=== PATIENT | female | born 1940 | race American Indian/Alaskan Native ===

== ENCOUNTER 2021-11-25 01:55 | Inpatient (IN) | payer MEDICARE ==
[2021-11-25 03:45] LABS: Basophils % (Auto) 0.1 % (0.0-1.8); Eosinophils % (Auto) 0.1 % (0.0-4.3); Hematocrit 41.4 % (30.3-42.9); Hemoglobin 13.4 gm/dl (10.1-14.3); Lymphocytes % (Auto) 8.4 % (13.4-35.0); Mean Corpuscular HGB Conc 32 % (30-34); Mean Corpuscular Volume 86 fl (79-97); Monocytes # (Auto) 0.9 K/mm3 (0.0-0.8); Monocytes % (Auto) 7.6 % (0.0-7.3); Platelet Count 400 K/mm3 (140-440); Red Blood Count 4.79 M/mm3 (3.65-5.03); Red Cell Distribution Width 13.5 % (13.2-15.2)
[2021-11-25] MEDS ORDERED: MORPHINE 4 MG/1 ML INJ IV ONE (03:57)
[2021-11-25] MEDS ORDERED: ONDANSETRON 4 MG/2 ML INJ IV ONE (03:57)
[2021-11-25] MEDS ORDERED: SODIUM CHLORIDE 0.9% 500 ML 500 ML IV ONE ×2 (03:58→05:34)
--- NOTE | 2021-11-25 03:59 | Emergency Department Report ---
<ELZA ENCARNACION - Last Filed: 11/25/21 05:46> ED General Adult HPI - General Chief complaint: Abdominal Pain Stated complaint: Upper abdominal pain for 1 month Time Seen by Provider: 11/25/21 03:50 Source: patient, family, RN notes reviewed Mode of arrival: Ambulatory Limitations: Other (Patient is a poor historian) - History of Present Illness Initial comments: The patient was evaluated in the emergency department for symptoms described in the history of present illness. He/she was evaluated in the context of the global COVID-19 pandemic, which necessitated consideration that the patient might be at risk for infection with the virus that causes COVID-19. Institutional protocols and algorithms that pertain to the evaluation of patients at risk for COVID-19 are in a state of rapid change based on information released by regulatory bodies including the CDC and federal and state organizations. These policies and algorithms were followed during the patient's care in the emergency department. Please note that these policies, procedures and recommendations changed on a rapid basis. This is an 81-year-old female. She has not seen a primary care doctor for years. It is unknown what medical condition she has. She is accompanied by her son who provides most of the history of present illness. She presents to the emergency room today with a complaint of a few weeks of upper abdominal pain. The pain increases with palpation. As per the son, no fever, vomiting, diarrhea, or urinary symptoms. Positive generalized weakness. Patient felt the pain was so strong today, that she had to sit down/lay down. She did not fall or hit her head. No allergies as per family. As per the son, not vaccinated against COVID-19. -: Gradual, week(s) Location: abdomen Consistency: constant Improves with: none Worsens with: movement - Related Data Allergies Allergy/AdvReac Type Severity Reaction Status Date / Time No Known Allergies Allergy Verified 11/25/21 02:53 ED Review of Systems Constitutional: malaise. denies: fever Eyes: denies: eye discharge ENT: denies: epistaxis Respiratory: denies: cough, wheezing Cardiovascular: denies: chest pain Gastrointestinal: abdominal pain. denies: hematemesis, melena, hematochezia Genitourinary: denies: dysuria Musculoskeletal: denies: back pain Neurological: weakness Hematological/Lymphatic: denies: easy bleeding ED Physical Exam - General Limitations: No Limitations, Other (Patient is a poor historian) General appearance: alert, in no apparent distress - Head Head exam: Present: atraumatic, normocephalic - Eye Eye exam: Present: normal appearance, EOMI. Absent: nystagmus - ENT ENT exam: Present: normal exam, normal orophraynx, normal external ear exam, other (Poor dentition) - Neck Neck exam: Present: normal inspection, full ROM. Absent: tenderness, meningismus - Respiratory Respiratory exam: Present: normal lung sounds bilaterally. Absent: respiratory distress, wheezes, rales, rhonchi, stridor, decreased breath sounds - Cardiovascular Cardiovascular Exam: Present: regular rate, normal rhythm, normal heart sounds. Absent: bradycardia, tachycardia, irregular rhythm, systolic murmur, diastolic murmur, rubs, gallop - GI/Abdominal GI/Abdominal exam: Present: soft, tenderness, guarding, other (Upper quadrant abdominal tenderness. Positive right upper quadrant tenderness. Positive Millan sign.). Absent: distended, rebound, rigid, pulsatile mass - Extremities Exam Extremities exam: Present: normal inspection, full ROM, other (2+ pulses noted in the bilateral upper and lower extremities. There is no palpable cord. negative Homans sign. Muscular compartments are soft. The pelvis is stable.). Absent: calf tenderness - Back Exam Back exam: Present: normal inspection. Absent: tenderness, CVA tenderness (R), CVA tenderness (L), paraspinal tenderness, vertebral tenderness - Neurological Exam Neurological exam: Present: alert, other (There is no facial droop. The tongue is midline. EOMI. 5/5 strength in 4 extremities.) - Psychiatric Psychiatric exam: Present: flat affect - Skin Skin exam: Present: warm, dry, intact, normal color. Absent: rash ED Course - Reevaluation(s) Reevaluation #1: 11/25/21 04:36 Differential diagnosis, including not limited to: Cholecystitis, pancreatitis, choledocholithiasis, hepatobiliary malignancy, urinary tract infection, obstru ction, colitis, diverticulitis, perforated viscus, intra-abdominal abscess Assessment and plan: 81-year-old female with subacute abdominal pain, now worsening. She is afebrile, with reassuring vital signs, and tender. Laboratory studies demonstrate leukocytosis, and elevated lipase. X-ray of the chest is unremarkable. Initial EKG limited by motion artifact. We will treat this patient's symptoms, obtain right upper quadrant ultrasound, as well as CT scan of the abdomen pelvis. Have requested repeat EKG, and urinalysis. Reassess after diagnostic imaging studies have resulted. Discussed this plan of care with the family member, who articulated understanding, and is agreeable to the plan of care son is in agreement with the plan of care and for acquisition of the aforementioned diagnostics Have advised that patient will likely require admission and hospitalization. Family is agreeable to this 11/25/21 04:56 EKG is repeated, and interpreted at 04: 5 5 Sinus rhythm, 66 bpm. Normal axis, normal P wave axis, borderline left ventricular hypertrophy, QTC 4 6 5 ms, and motion artifact. This is an abnormal EKG. This is not a STEMI. 11/25/21 05:04 11/25/21 05:34 Ultrasound suggestive of cholecystitis. I have ordered blood cultures and lactic acid, although, this hospital and many of the local hospitals are out of lactic acid tubes. Antibiotics are ordered. IV fluids ordered. Awaiting callback from general surgery. Awaiting CT scan abdomen pelvis. 11/25/21 05:47 Change in plans. No need for general surgical consultation CT scan abdomen pelvis showsIMPRESSION: 1. Acute pancreatitis. 2. Moderate colonic diverticulosis 3. Multifocal bilateral groundglass parenchymal disease likely secondary to Covid pneumonia. 4. Gallbladder surgically absent. On the gallbladder ultrasound, the technologist mistakenly measured an adjacent loop of duodenum rather than the gallbladder itself No evidence of cholecystitis. Acute pancreatitis. Multifocal infiltrates. Patient not hypoxic. Cover with empiric antibiotics. Admit to the medical service. Start isolation. Not hy poxic, no indication for steroids. He will be transferred to the oncoming ER physician, Dr Rick Driver, to contact hospital physician to arrange admission. ED Medical Decision Making - Lab Data Result diagrams: 11/25/21 03:15 11/25/21 03:15 Vital Signs 11/25/21 02:16 Temperature 98.3 F Pulse Rate 93 H Respiratory 19 Rate Blood Pressure 135/81 O2 Sat by Pulse 99 Oximetry Lab Results 11/25/21 11/25/21 Range/Units 03:15 03:15 WBC 12.0 H (4.5-11.0) K/mm3 RBC 4.79 (3.65-5.03) M/mm3 Hgb 13.4 (10.1-14.3) gm/dl Hct 41.4 (30.3-42.9) % MCV 86 (79-97) fl MCH 28 (28-32) pg MCHC 32 (30-34) % RDW 13.5 (13.2-15.2) % Plt Count 400 (140-440) K/mm3 Lymph % (Auto) 8.4 L (13.4-35.0) % [place] % (Auto) 7.6 H (0.0-7.3) % Eos % (Auto) 0.1 (0.0-4.3) % Baso % (Auto) 0.1 (0.0-1.8) % Lymph # (Auto) 1.0 L (1.2-5.4) K/mm3 [place] # (Auto) 0.9 H (0.0-0.8) K/mm3 Eos # (Auto) 0.0 (0.0-0.4) K/mm3 Baso # (Auto) 0.0 (0.0-0.1) K/mm3 Seg Neutrophils % 83.8 H (40.0-70.0) % Seg Neutrophils # 10.0 H (1.8-7.7) K/mm3 Sodium 140 (137-145) mmol/L Potassium 3.5 L (3.6-5.0) mmol/L Chloride 97.5 L (98-107) mmol/L Carbon Dioxide 27 (22-30) mmol/L Anion Gap 19 mmol/L BUN 18 H (7-17) mg/dL Creatinine 0.9 (0.6-1.2) mg/dL Estimated GFR > 60 ml/min BUN/Creatinine Ratio 20 % Glucose 187 H (65-100) mg/dL Calcium 10.3 H (8.4-10.2) mg/dL Total Bilirubin 0.70 (0.1-1.2) mg/dL AST 15 (5-40) units/L ALT 12 (7-56) units/L Alkaline Phosphatase 80 (35-129) units/L Total Protein 8.3 H (6.3-8.2) g/dL Albumin 3.6 L (3.9-5) g/dL Albumin/Globulin Ratio 0.8 % Amylase 249 H (27-131) units/L Lipase 173 H (13-60) units/L - EKG Data -: EKG Interpreted by Nd EKG shows normal: sinus rhythm Rate: normal - EKG Data When compared to previous EKG there are: previous EKG unavailable 11/25/21 04:33 The EKG is interpreted at 02: 3 0 Motion artifact. Sinus rhythm, 96 bpm. Normal axis, borderline normal P wave axis. QTC 4 7 9 ms. Left ventricular hypertrophy. Abnormal EKG. Not a STEMI. - Radiology Data Radiology results: pending, report reviewed, image reviewed CHEST 1 VIEW INDICATION / CLINICAL INFORMATION: upper abd pain. COMPARISON: None available. FINDINGS: SUPPORT DEVICES: None. HEART / MEDIASTINUM: No significant abnormality. LUNGS / PLEURA: Linear scarring/atelectasis right lower lobe No significant pulmonary or pleural abnormality. No pneumothorax. ADDITIONAL FINDINGS: No significant additional findings. IMPRESSION: 1. No acute findings. Signer Name: Reynaldo Walter MD Signed: 11/25/2021 3:24 AM Workstation Name: Spontaneously LIMITED RUQ ABDOMINAL ULTRASOUND INDICATION / CLINICAL INFORMATION: acute upper abd pain. COMPARISON: No relevant prior imaging study available. FINDINGS: PANCREAS: Visualized portions show no significant abnormality. ABDOMINAL AORTA: No significant abnormality. IVC: No significant abnormality.. LIVER: The liver measures 14.3 cm in length. No significant abnormality. Normal hepatopedal blood flow in the main portal vein. GALLBLADDER: Several calcified gallstones with thickened edematous gallbladder wall measuring 8 mm. BILE DUCTS: No significant abnormality. Common bile duct measures 2 mm. RIGHT KIDNEY: 1.5 cm cyst FREE FLUID: None. ADDITIONAL FINDINGS: None. IMPRESSION: 1. Cholelithiasis with gallbladder wall thickening characteristic for cholecystitis Signer Name: Reynaldo Walter MD Signed: 11/25/2021 4:28 AM Workstation Name: [id number] CT ABDOMEN AND PELVIS WITH CONTRAST INDICATION: acute upper abd pain. NUSRAT HNIQUE: Axial CT images were obtained through the abdomen and pelvis after IV contrast. All CT scans at this location are performed using CT dose reduction for ALARA by means of automated exposure control. COMPARISON: Gallbladder ultrasound same day FINDINGS: LOWER CHEST: Multifocal moderate bilateral groundglass proximal disease LIVER: No significant abnormality. GALLBLADDER: Surgically absent with small amount of fluid in the gallbladder fossa BILE DUCTS: No significant abnormality. PANCREAS: Enlarged edematous pancreatic head and body characteristic for acute pancreatitis with peripancreatic edema. SPLEEN: No significant abnormality. 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 RIGHT KIDNEY and URETER: Simple 1.9 cm cyst LEFT KIDNEY and URETER: 1.6 cm simple cyst STOMACH and SMALL BOWEL: No significant abnormality. COLON: Moderate colonic diverticulosis without diverticulitis APPENDIX: No significant abnormality. PERITONEUM: No free fluid. No free air. No fluid collection. LYMPH NODES: No significant adenopathy. AORTA and ARTERIES: No significant abnormality. IVC and VEINS: No significant abnormality. URINARY BLADDER: No significant abnormality. REPRODUCTIVE ORGANS: No significant abnormality. ADDITIONAL FINDINGS: None. SKELETAL SYSTEM: Moderate multilevel lumbar facet degenerative disease. Mild degenerative arthrosis both hips IMPRESSION: 1. Acute pancreatitis. 2. Moderate colonic diverticulosis 3. Multifocal bilateral groundglass parenchymal disease likely secondary to Covid pneumonia. 4. Gallbladder surgically absent. On the gallbladder ultrasound, the technologist mistakenly measured an adjacent loop of duodenum rather than the gallbladder itself Signer Name: Reynaldo Walter MD Signed: 11/25/2021 4:39 AM Workstation Name: [id number] ED Disposition Clinical Impression: Acute abdominal pain, Suspected COVID-19 virus infection Disposition: ADMITTED INPATIENT Is pt being admited?: Yes Does the pt Need Aspirin: No Condition: Good Instructions: Bacterial Pneumonia (ED), Abdominal Pain (ED) <YOHAN BAHENA - Last Filed: 11/25/21 08:29> ED Review of Systems ROS: Stated complaint: Upper abdominal pain for 1 month Other details as noted in HPI ED Course Vital Signs 11/25/21 11/25/21 11/25/21 02:16 06:10 06:37 Temperature 98.3 F Pulse Rate 93 H 89 Respiratory 19 16 Rate Blood Pressure 135/81 Blood Pressure 201/90 [Right] O2 Sat by Pulse 99 98 96 Oximetry 11/25/21 06:57 Temperature Pulse Rate 65 Respiratory 16 Rate Blood Pressure Blood Pressure 179/85 [Right] O2 Sat by Pulse 95 Oximetry ED Medical Decision Making - Lab Data Result diagrams: 11/25/21 03:15 11/25/21 03:15 - Medical Decision Making This is an 81-year-old female. She has not seen a primary care doctor for years. It is unknown what medical condition she has. She is accompanied by her son who provides most of the history of present illness. She presents to the emergency room today with a complaint of a few weeks of upper abdominal pain. The pain increases with palpation. As per the son, no fever, vomiting, diarrhea, or urinary symptoms. Positive generalized weakness. Patient felt the pain was so strong today, that she had to sit down/lay down. She did not fall or hit her head. No allergies as per family. Patient remained stable with stable vital sign. I discussed the patient with Dr. Huffman, he agreed to admit the patient to medical service for further management. Critical care attestation.: If time is entered above; I have spent that time in minutes in the direct care of this critically ill patient, excluding procedure time.
[2021-11-25 04:00] LABS: Alanine Aminotransferase 12 units/L (7-56); Albumin 3.6 g/dL (3.9-5); BUN/Creatinine Ratio 20; Blood Urea Nitrogen 18 mg/dL (7-17); Calcium 10.3 mg/dL (8.4-10.2); Hemolysis Index 3
--- NOTE | 2021-11-25 04:28 | XRay Report ---
CHEST 1 VIEW INDICATION / CLINICAL INFORMATION: upper abd pain. COMPARISON: None available. FINDINGS: SUPPORT DEVICES: None. HEART / MEDIASTINUM: No significant abnormality. LUNGS / PLEURA: Linear scarring/atelectasis right lower lobe No significant pulmonary or pleural abno rmality. No pneumothorax. ADDITIONAL FINDINGS: No significant additional findings. IMPRESSION: 1. No acute findings. Signer Name: Reynaldo Walter MD Signed: 11/25/2021 4:24 AM Workstation Name: [id number]
[2021-11-25] MEDS ORDERED: PIPERACIL/TAZOBACTA 4.5/NS 100 4.5 GM/100 ML VIAL IV ONE (05:33)
--- NOTE | 2021-11-25 05:33 | Ultrasound Report ---
LIMITED RUQ ABDOMINAL ULTRASOUND INDICATION / CLINICAL INFORMATION: acute upper abd pain. COMPARISON: No relevant prior imaging study available. FINDINGS: PANCREAS: Visualized portions show no significant abnormality. ABDOMINAL AORTA: No significant abnormality. IVC: No significant abnormality.. LIVER: The liver measures 14.3 cm in length. No significant abnormality. Normal hepatopedal blood fl ow in the main portal vein. GALLBLADDER: Several calcified gallstones with thickened edematous gallbladder wall measuring 8 mm. BILE DUCTS: No significant abnormality. Common bile duct measures 2 mm. RIGHT KIDNEY: 1.5 cm cyst FREE FLUID: None. ADDITIONAL FINDINGS: None. IMPRESSION: 1. Cholelithiasis with gallbladder wall thickening characteristic for cholecystitis Signer Name: Reynaldo Walter MD Signed: 11/25/2021 5:28 AM Workstation Name: [id number]
--- NOTE | 2021-11-25 05:43 | Cat Scan Report ---
CT ABDOMEN AND PELVIS WITH CONTRAST INDICATION: acute upper abd pain. TECHNIQUE: Axial CT images were obtained through the abdomen and pelvis after IV contrast. All CT scans at this location are performed using CT dose reduction for ALARA by means of automated exposure control. COMPARISON: Gallbladder ultrasound same day FINDINGS: LOWER CHEST: Multifocal moderate bilateral groundglass proximal disease LIVER: No significant abnormality. GALLBLADDER: Surgically absent with small amount of fluid in the gallbladder fossa BILE DUCTS: No significant abnormality. PANCREAS: Enlarged edematous pancreatic head and body characteristic for acute pancreatitis with gerson pancreatic edema. SPLEEN: No significant abnormality. 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 RIGHT KIDNEY and URETER: Simple 1.9 cm cyst LEFT KIDNEY and URETER: 1.6 cm simple cyst STOMACH and SMALL BOWEL: No significant abnormality. COLON: Moderate colonic diverticulosis without diverticulitis APPENDIX: No significant abnormality. PERITONEUM: No free fluid. No free air. No fluid collection. LYMPH NODES: No significant adenopathy. AORTA and ARTERIES: No significant abnormality. IVC and VEINS: No significant abnormality. URINARY BLADDER: No significant abnormality. REPRODUCTIVE ORGANS: No significant abnormality. ADDITIONAL FINDINGS: None. SKELETAL SYSTEM: Moderate multilevel lumbar facet degenerative disease. Mild degenerative arthrosis b oth hips IMPRESSION: 1. Acute pancreatitis. 2. Moderate colonic diverticulosis 3. Multifocal bilateral groundglass parenchymal disease likely secondary to Covid pneumonia. 4. Gallbladder surgically absent. On the gallbladder ultrasound, the technologist mistakenly measured an adjacent loop of duodenum rather than the gallbladder itself Signer Name: Reynaldo Walter MD Signed: 11/25/2021 5:39 AM Workstation Name: [id number]
[2021-11-25] MEDS ORDERED: cefTRIAXone/NS 1 GM/50 ML 1 GM/50 ML BAG IV ONE (05:47)
[2021-11-25] MEDS ORDERED: AZITHROMYCIN/NS 500 MG/250 ML 500 MG/250 ML BAG IV ONE ×2 (05:47→10:00)
[2021-11-25 07:34] LABS: Bilirubin,Urine Negative (Negative); Color,Urine Yellow (Yellow)
[2021-11-25 07:42] LABS: Hyaline Casts,Urine 451 /LPF; Mucus,Urine 3+ /HPF
[2021-11-25 07:43] LABS: Blood,Urine TRACE (Negative)
[2021-11-25] MEDS ORDERED: D5W/0.9% NACL 1,000 ML IV SCH (09:00)
[2021-11-25] MEDS ORDERED: oxyCODONE /ACETAMINOPHEN 5-325MG TAB PO PRN (09:00)
[2021-11-25] MEDS ORDERED: NALOXONE 0.4 MG/1 ML INJ IV PRN (09:00)
[2021-11-25] MEDS ORDERED: ALBUTEROL 2.5 MG/3 ML NEBU IH PRN (09:00)
[2021-11-25] MEDS ORDERED: ONDANSETRON 4 MG/2 ML INJ IV PRN (09:00)
[2021-11-25] MEDS ORDERED: ACETAMINOPHEN 325 MG TAB PO PRN (09:00)
--- NOTE | 2021-11-25 09:02 | History and Physical Report ---
History of Present Illness Date of examination: 11/25/21 Date of admission: 11/25/21 Chief complaint: Abdominal pain History of present illness: Patient is a 81-year-old female vaccinated according to the son per the ER physician who spoke to the son presents to the ED with complaints of abdominal pain. According to further information obtained by the satisfied of the ED physicians note shows that the patient has not had any fever nausea vomiting or diarrhea but has been complaining of abdominal pain for the past few weeks. The pain increases to palpitations she appears to be nonverbal. Per the documentation the pain was so strong that the patient sat down but did not have a fall or syncopal episode or head trauma. On arrival to the ED initial work-up was pointing more towards pancreatitis with mildly elevated lipase and also CT of the abdomen Suggested pancreatitis. Is unclear to be if the patient responded to verbal or language barrier. I am awaiting to speak with the son also. Past History Past Medical History: hypertension Social history: full code Family history: no significant family history Medications and Allergies Allergies Allergy/AdvReac Type Severity Reaction Status Date / Time No Known Allergies Allergy Verified 11/25/21 02:53 Active Meds: Active Medications Acetaminophen (Acetaminophen 325 Mg Tab) 650 mg PO Q4H PRN PRN Reason: Pain MILD(1-3)/Fever >100.5/TRIPLETT Albuterol (Albuterol 2.5 Mg/3 Ml Nebu) 2.5 mg IH Q4HRT PRN PRN Reason: Shortness Of Breath Heparin Sodium (Porcine) (Heparin 5,000 Unit/1 Ml Vial) 5,000 unit SUB-Q Q8HR ELIESER Dextrose/Sodium Chloride (D5ns) 1,000 mls @ 100 mls/hr IV DIRECT ELIESER Piperacillin Sod/Tazobactam Sod (Zosyn/Ns 4.5gm/100ml) 4.5 gm in 100 mls @ 200 mls/hr IV Q8H ELIESER; Protocol Naloxone HCl (Naloxone 0.4 Mg/1 Ml Inj) 0.1 mg IV Q2MIN PRN PRN Reason: Res Rate </= 8 or 02 SAT < 92% Ondansetron HCl (Ondansetron 4 Mg/2 Ml Inj) 4 mg IV Q4H PRN PRN Reason: Nausea And Vomiting Oxycodone/Acetaminophen (Oxycodone /Acetaminophen 5-325mg Tab) 1 tab PO Q6H PRN PRN Reason: Pain, Moderate (4-6) Senna (Sennosides 8.6 Mg Tab) 8.6 mg PO Q12HR ELIESER Sodium Chloride (Sodium Chloride 0.9% 10 Ml Flush Syringe) 10 ml IV BID ELIESER Sodium Chloride (Sodium Chloride 0.9% 10 Ml Flush Syringe) 10 ml IV PRN PRN PRN Reason: LINE FLUSH Review of Systems ROS unobtainable: due to mental status (Patient not speaking) Constitutional: fatigue, weakness, malaise, lethargy Gastrointestinal: abdominal pain, no nausea, no vomiting, no diarrhea, no constipation, no change in bowel habits, no hematemesis, no coffee ground emesis, no BRBPR, no melena, no hematochezia, no loss of appetite, no early satiety, no heartburn, no indigestion, no belching, no excessive gas, no jaundice, no dyspepsia/bloating, no early satiety, no lactose intolerance Exam - Physical Exam Narrative exam: VITAL SIGNS: Reviewed. GENERAL: The patient appears normally developed, morbidly obese vital signs as documented. HEAD: No signs of head trauma. EYES: Pupils are equal. Extraocular motions intact. EARS: Hearing grossly intact. MOUTH: Oropharynx is normal. NECK: No adenopathy, no JVD. CHEST: Chest with clear breath sounds bilaterally. No wheezes, rales, or rhonchi. CARDIAC: Regular rate and rhythm. S1 and S2, without murmurs, gallops, or rubs. VASCULAR: No Edema. Peripheral pulses normal and equal in all extremities. ABDOMEN: Soft, non tender and non distended. No rebound or guarding, and no masses palpated. Bowel Sounds normal. MUSCULOSKELETAL: Good range of motion of all major joints. Extremities without clubbing, cyanosis or edema. NEUROLOGIC EXAM: Alert and oriented x 3 No focal sensory or strength deficits. Speech normal. Follows commands. PSYCHIATRIC: Mood normal. SKIN: detail exam as documented in skin assessment - Constitutional Vitals: Temp Pulse Resp BP Pulse Ox 98.3 F 65 16 179/85 95 11/25/21 02:16 11/25/21 06:57 11/25/21 06:57 11/25/21 06:57 11/25/21 06:57 HEART Score - HEART Score Troponin: Troponin T < 0.010 ng/mL (0.00-0.029) 11/25/21 04:29 Results - Labs CBC & Chem 7: 11/25/21 03:15 11/25/21 03:15 Labs: Laboratory Last Values WBC 12.0 K/mm3 (4.5-11.0) H 11/25/21 03:15 RBC 4.79 M/mm3 (3.65-5.03) 11/25/21 03:15 Hgb 13.4 gm/dl (10.1-14.3) 11/25/21 03:15 Hct 41.4 % (30.3-42.9) 11/25/21 03:15 MCV 86 fl (79-97) 11/25/21 03:15 MCH 28 pg (28-32) 11/25/21 03:15 MCHC 32 % (30-34) 11/25/21 03:15 RDW 13.5 % (13.2-15.2) 11/25/21 03:15 Plt Count 400 K/mm3 (140-440) 11/25/21 03:15 Lymph % (Auto) 8.4 % (13.4-35.0) L 11/25/21 03:15 [place] % (Auto) 7.6 % (0.0-7.3) H 11/25/21 03:15 Eos % (Auto) 0.1 % (0.0-4.3) 11/25/21 03:15 Baso % (Auto) 0.1 % (0.0-1.8) 11/25/21 03:15 Lymph # (Auto) 1.0 K/mm3 (1.2-5.4) L 11/25/21 03:15 [place] # (Auto) 0.9 K/mm3 (0.0-0.8) H 11/25/21 03:15 Eos # (Auto) 0.0 K/mm3 (0.0-0.4) 11/25/21 03:15 Baso # (Auto) 0.0 K/mm3 (0.0-0.1) 11/25/21 03:15 Seg Neutrophils % 83.8 % (40.0-70.0) H 11/25/21 03:15 Seg Neutrophils # 10.0 K/mm3 (1.8-7.7) H 11/25/21 03:15 Sodium 140 mmol/L (137-145) 11/25/21 03:15 Potassium 3.5 mmol/L (3.6-5.0) L 11/25/21 03:15 Chloride 97.5 mmol/L (98-107) L 11/25/21 03:15 Carbon Dioxide 27 mmol/L (22-30) 11/25/21 03:15 Anion Gap 19 mmol/L 11/25/21 03:15 BUN 18 mg/dL (7-17) H 11/25/21 03:15 Creatinine 0.9 mg/dL (0.6-1.2) 11/25/21 03:15 Estimated GFR > 60 ml/min 11/25/21 03:15 BUN/Creatinine Ratio 20 % 11/25/21 03:15 Glucose 187 mg/dL (65-100) H 11/25/21 03:15 Calcium 10.3 mg/dL (8.4-10.2) H 11/25/21 03:15 Magnesium 2.10 mg/dL (1.7-2.3) 11/25/21 04:29 Total Bilirubin 0.70 mg/dL (0.1-1.2) 11/25/21 03:15 AST 15 units/L (5-40) 11/25/21 03:15 ALT 12 units/L (7-56) 11/25/21 03:15 Alkaline Phosphatase 80 units/L (35-129) 11/25/21 03:15 Total Creatine Kinase 117 units/L (30-135) 11/25/21 04:29 Troponin T < 0.010 ng/mL (0.00-0.029) 11/25/21 04:29 Total Protein 8.3 g/dL (6.3-8.2) H 11/25/21 03:15 Albumin 3.6 g/dL (3.9-5) L 11/25/21 03:15 Albumin/Globulin Ratio 0.8 % 11/25/21 03:15 Amylase 249 units/L (27-131) H 11/25/21 03:15 Lipase 173 units/L (13-60) H 11/25/21 03:15 Urine Color Yellow (Yellow) 11/25/21 06:13 Urine Turbidity Clear (Clear) 11/25/21 06:13 Urine pH 5.0 (5.0-7.0) 11/25/21 06:13 Ur Specific [place] 1.010 (1.003-1.030) 11/25/21 06:13 Urine Protein 30 mg/dl mg/dL (Negative) 11/25/21 06:13 Urine Glucose (UA) Negative mg/dL (Negative) 11/25/21 06:13 Urine Ketones Trace mg/dL (Negative) 11/25/21 06:13 Urine Blood Trace (Negative) 11/25/21 06:13 Urine Nitrite Negative (Negative) 11/25/21 06:13 Urine Bilirubin Negative (Negative) 11/25/21 06:13 Urine Urobilinogen 4.0 mg/dL (<2.0) 11/25/21 06:13 Ur Leukocyte Esterase Trace (Negative) 11/25/21 06:13 Urine WBC (Auto) 23.0 /HPF (0.0-6.0) H 11/25/21 06:13 Urine RBC (Auto) 181.0 /HPF (0.0-6.0) 11/25/21 06:13 U Epithel Cells (Auto) 54.0 /HPF (0-13.0) H 11/25/21 06:13 Hyaline Casts 451 /LPF 11/25/21 06:13 Waxy Casts 83 /LPF 11/25/21 06:13 Urine Mucus 3+ /HPF 11/25/21 06:13 Assessment and Plan Assessment and plan: Patient is a 81-year-old female vaccinated according to the son per the ER physician who spoke to the son presents to the ED with complaints of abdominal pain. According to further information obtained by the satisfied of the ED physicians note shows that the patient has not had any fever nausea vomiting or diarrhea but has been complaining of abdominal pain for the past few weeks. The pain increases to palpitations she appears to be nonverbal. Per the documentation the pain was so strong that the patient sat down but did not have a fall or syncopal episode or head trauma. On arrival to the ED initial work-up was pointing more towards pancreatitis with mildly elevated lipase and also CT of the abdomen Suggested pancreatitis. Is unclear to be if the patient responded to verbal or language barrier. I am awaiting to speak with the son also. Patient does not demonstrate any solid or hypoxia. Ultrasound suggestive of cholecystitis. CT scan abdomen pelvis 1. Acute pancreatitis. 2. Moderate colonic diverticulosis 3. Multifocal bilateral groundglass parenchymal disease likely secondary to Covid pneumonia. 4. Gallbladder surgically absent. On the gallbladder ultrasound, the technologist mistakenly measured an adjacent loop of duodenum rather than the gallbladder itself No evidence of cholecystitis. Acute pancreatitis Moderate colonic Diverticulosis Pneumonia possible COVID related Suspected COVID infection Morbid obesity Hypokalemia Abdominal pain Leukocytosis ?Acute Cystitis PLAN ADMIT TO [facility] IV FLUIDS PAIN CONTROL ABX Replace K GI consult ISOLATION FOR COVID MANAGEMENT Patient is not Hypoxic, will monitor clinically ID CONSULT Cultures DVT/GI PROPHY Will obtain family with findings so far. Advance care directive discussed in detail for 30 mins. Advance Directives: Yes (dnr) Plan of care discussed with patient/family: Yes
--- NOTE | 2021-11-25 12:16 | Electrocardiograph Report ---
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
--- NOTE | 2021-11-25 12:17 | Electrocardiograph Report ---
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
[2021-11-25] MEDS ORDERED: REMDESIVIR 200 MG in SODIUM CHLORIDE 0.9% 250ML 250 ML IV ONE (13:52)
--- NOTE | 2021-11-25 13:54 | Consultation ---
History of Present Illness - Reason for Consult Consult date: 11/25/21 pneumonia Requesting physician: MIGUEL ANGEL CARTAGENA - History of Present Illness The patient is an 81-year-old female with hypertension who was admitted to the hospital with complaints of abdominal pain. Upon admission, WBC 12.0, calcium 10.3, amylase 249, lipase 173. UA was contaminated, showed slight pyuria, COVID-19 PCR came back positive. Abdominal ultrasound showed cholelithiasis wit h gallbladder wall thickening suggestive of possible cholecystitis. CT abdomen and pelvis with IV contrast revealed acute pancreatitis, bilateral groundglass opacities concerning for COVID-19, gallbladder surgically absent, it seems the loop of duodenum was reported as possible gallbladder. Afebrile. Review of Systems: reviewed in the chart, unable to obtain, minimize risk of transmission Past History Past Medical History: hypertension Social history: full code Family history: no significant family history Medications and Allergies Allergies Allergy/AdvReac Type Severity Reaction Status Date / Time No Known Allergies Allergy Verified 11/25/21 02:53 Active Meds: Active Medications Acetaminophen (Acetaminophen 325 Mg Tab) 650 mg PO Q4H PRN PRN Reason: Pain MILD(1-3)/Fever >100.5/TRIPLETT Albuterol (Albuterol 2.5 Mg/3 Ml Nebu) 2.5 mg IH Q4HRT PRN PRN Reason: Shortness Of Breath Heparin Sodium (Porcine) (Heparin 5,000 Unit/1 Ml Vial) 5,000 unit SUB-Q Q8HR ELIESER Hydralazine HCl (Hydralazine 20 Mg/1 Ml Inj) 10 mg IV Q4HR PRN PRN Reason: Hypertension Dextrose/Sodium Chloride (D5ns) 1,000 mls @ 100 mls/hr IV DIRECT ELIESER Piperacillin Sod/Tazobactam Sod (Zosyn/Ns 4.5gm/100ml) 4.5 gm in 100 mls @ 200 mls/hr IV Q8HR ELIESER; Protocol Remdesivir 200 mg/ Sodium (Chloride) 250 mls @ 500 mls/hr IV ONCE ONE Stop: 11/25/21 14:21 Remdesivir 100 mg/ Sodium (Chloride) 250 mls @ 500 mls/hr IV Q24HR@1400 ELIESER Stop: 11/27/21 14:29 Naloxone HCl (Naloxone 0.4 Mg/1 Ml Inj) 0.1 mg IV Q2MIN PRN PRN Reason: Res Rate </= 8 or 02 SAT < 92% Ondansetron HCl (Ondansetron 4 Mg/2 Ml Inj) 4 mg IV Q4H PRN PRN Reason: Nausea And Vomiting Oxycodone/Acetaminophen (Oxycodone /Acetaminophen 5-325mg Tab) 1 tab PO Q6H PRN PRN Reason: Pain, Moderate (4-6) Senna (Sennosides 8.6 Mg Tab) 8.6 mg PO Q12HR ELIESER Sodium Chloride (Sodium Chloride 0.9% 10 Ml Flush Syringe) 10 ml IV BID ELIESER Sodium Chloride (Sodium Chloride 0.9% 10 Ml Flush Syringe) 10 ml IV PRN PRN PRN Reason: LINE FLUSH Sodium Chloride (Sodium Chloride 0.9% 50 Ml Ivpb) 50 ml IV Q24HR@1400 ELIESER Stop: 11/26/21 14:01 Physical Examination - Physical Exam Narrative exam: Physical Exam (reviewed in chart to minimize risk of transmission) Constitutional: deferred Head, Ears, Nose: deferred Eyes: deferred Neck: deferred Oral: deferred Cardiovascular: deferred Respiratory: deferred GI: deferred Musculoskeletal: deferred Skin: deferred Hem/Lymphatic: deferred Psych: deferred Neurological: deferred - Constitutional Vitals: Vital Signs Temp Pulse Resp BP Pulse Ox 98.3 F 65 16 179/85 95 11/25/21 02:16 11/25/21 06:57 11/25/21 06:57 11/25/21 06:57 11/25/21 06:57 Temperature -Last 24 Hours Temperature 98.3 F Results - Labs CBC & Chem 7: 11/25/21 03:15 11/25/21 03:15 Labs: Abnormal lab results 11/25/21 11/25/21 11/25/21 Range/Units 03:15 03:15 06:13 WBC 12.0 H (4.5-11.0) K/mm3 Lymph % (Auto) 8.4 L (13.4-35.0) % [place] % (Auto) 7.6 H (0.0-7.3) % Lymph # (Auto) 1.0 L (1.2-5.4) K/mm3 [place] # (Auto) 0.9 H (0.0-0.8) K/mm3 Seg Neutrophils % 83.8 H (40.0-70.0) % Seg Neutrophils # 10.0 H (1.8-7.7) K/mm3 Potassium 3.5 L (3.6-5.0) mmol/L Chloride 97.5 L (98-107) mmol/L BUN 18 H (7-17) mg/dL Glucose 187 H (65-100) mg/dL Calcium 10.3 H (8.4-10.2) mg/dL Total Protein 8.3 H (6.3-8.2) g/dL Albumin 3.6 L (3.9-5) g/dL Amylase 249 H (27-131) units/L Lipase 173 H (13-60) units/L Urine WBC (Auto) 23.0 H (0.0-6.0) /HPF U Epithel Cells (Auto) 54.0 H (0-13.0) /HPF SARS-CoV-2 (PCR) (Negative) 11/25/21 Range/Units 09:45 WBC (4.5-11.0) K/mm3 Lymph % (Auto) (13.4-35.0) % [place] % (Auto) (0.0-7.3) % Lymph # (Auto) (1.2-5.4) K/mm3 [place] # (Auto) (0.0-0.8) K/mm3 Seg Neutrophils % (40.0-70.0) % Seg Neutrophils # (1.8-7.7) K/mm3 Potassium (3.6-5.0) mmol/L Chloride (98-107) mmol/L BUN (7-17) mg/dL Glucose (65-100) mg/dL Calcium (8.4-10.2) mg/dL Total Protein (6.3-8.2) g/dL Albumin (3.9-5) g/dL Amylase (27-131) units/L Lipase (13-60) units/L Urine WBC (Auto) (0.0-6.0) /HPF U Epithel Cells (Auto) (0-13.0) /HPF SARS-CoV-2 (PCR) Positive A (Negative) - Imaging and Cardiology Chest x-ray: report reviewed, image reviewed CT scan - abdomen: report reviewed, image reviewed (b/l lungs GGO) Assessment and Plan Cultures: SARS CoV2 PCR: Positive 11/25/2021 blood culture: In process A/P: 81-year-old female with hypertension who was admitted to the hospital with complaints of abdominal pain: #Bilateral pneumonia: Secondary to COVID-19. Vaccinated. On room air. Considering her age, she is at risk of severe COVID-19, hence treat with Remdesivir for 3 days. #Acute pancreatitis: Gallbladder surgically absent on CT. There have been some reports of pancreatitis secondary to COVID-19. Recs: -Since patient is not hypoxic, steroids not needed -IV remdesivir x 3 days (Considering her age, she is at risk of severe COVID-19) -If patient develops hypoxia, start steroids and extend remdesivir course to 5 days -prophylactic anticoagulation based on d-dimer per hospital protocol -if procalcitonin is low, abx not needed -trend ferritin, d-dimer, CRP every 2-3 days Sarah Contreras MD, [facility] O: [phone] F: [phone] C: [phone]
[2021-11-25] MEDS: PIPERACIL/TAZOBACTA 4.5/NS 100 4.5 GM/100 ML VIAL IV SCH ×3 (14:19→22:10)
[2021-11-25] MEDS: SENNOSIDES 8.6 MG TAB PO SCH ×2 (14:53→21:00)
[2021-11-25] MEDS: HEPARIN 5,000 UNIT/1 ML VIAL SUB-Q SCH ×2 (14:54→21:02)
--- NOTE | 2021-11-25 18:25 | Gastroenterology Consultation ---
History of Present Illness - Reason for Consult Consult date: 11/25/21 Pancreatitis Requesting physician: MIGUEL ANGEL CARTAGENA - History of Present Illness The patient is an 81 yo female admitted with acute pancreatitis and acute COVID. She came to the ER for confusion (brought by family) and has become more confused while here (per nursing). She is pulling out IVs, and not communicating with the staff. She is restless and agitated, and having low- grade fevers. She also is rubbing her stomach and resists being touched there. Past History Past Medical History: hypertension, other (COVID (this admit); acute pancreatitis (this admit)) Past Surgical History: cholecystectomy Social history: full code Family history: no significant family history Medications and Allergies Allergies Allergy/AdvReac Type Severity Reaction Status Date / Time No Known Allergies Allergy Verified 11/25/21 02:53 Active Meds: Active Medications Acetaminophen (Acetaminophen 325 Mg Tab) 650 mg PO Q4H PRN PRN Reason: Pain MILD(1-3)/Fever >100.5/TRIPLETT Albuterol (Albuterol 2.5 Mg/3 Ml Nebu) 2.5 mg IH Q4HRT PRN PRN Reason: Shortness Of Breath Heparin Sodium (Porcine) (Heparin 5,000 Unit/1 Ml Vial) 5,000 unit SUB-Q Q8HR ELIESER Last Admin: 11/25/21 14:54 Dose: 5,000 unit Hydralazine HCl (Hydralazine 20 Mg/1 Ml Inj) 10 mg IV Q4HR PRN PRN Reason: Hypertension Dextrose/Sodium Chloride (D5ns) 1,000 mls @ 100 mls/hr IV DIRECT ELIESER Piperacillin Sod/Tazobactam Sod (Zosyn/Ns 4.5gm/100ml) 4.5 gm in 100 mls @ 200 mls/hr IV Q8HR ELIESER; Protocol Last Admin: 11/25/21 14:54 Dose: 200 mls/hr Remdesivir 100 mg/ Sodium (Chloride) 250 mls @ 500 mls/hr IV Q24HR@1400 ELIESER Stop: 11/27/21 14:29 Naloxone HCl (Naloxone 0.4 Mg/1 Ml Inj) 0.1 mg IV Q2MIN PRN PRN Reason: Res Rate </= 8 or 02 SAT < 92% Ondansetron HCl (Ondansetron 4 Mg/2 Ml Inj) 4 mg IV Q4H PRN PRN Reason: Nausea And Vomiting Oxycodone/Acetaminophen (Oxycodone /Acetaminophen 5-325mg Tab) 1 tab PO Q6H PRN PRN Reason: Pain, Moderate (4-6) Senna (Sennosides 8.6 Mg Tab) 8.6 mg PO Q12HR COUNTS INCLUDE 234 BEDS AT THE [facility] Last Admin: 11/25/21 14:53 Dose: Not Given Sodium Chloride (Sodium Chloride 0.9% 10 Ml Flush Syringe) 10 ml IV BID COUNTS INCLUDE 234 BEDS AT THE [facility] Last Admin: 11/25/21 14:53 Dose: Not Given Sodium Chloride (Sodium Chloride 0.9% 10 Ml Flush Syringe) 10 ml IV PRN PRN PRN Reason: LINE FLUSH Sodium Chloride (Sodium Chloride 0.9% 50 Ml Ivpb) 50 ml IV Q24HR@1400 COUNTS INCLUDE 234 BEDS AT THE [facility] Stop: 11/26/21 14:01 I HAVE REVIEWED/RECONCILED MEDICATIONS Review of Systems - Review of Systems ROS unobtainable: due to mental status Exam - Constitutional Vital Signs: Temp Pulse Resp BP Pulse Ox 97 F L 63 20 169/89 92 11/25/21 16:28 11/25/21 16:28 11/25/21 16:28 11/25/21 16:28 11/25/21 16:28 General appearance: mild distress - EENT Eyes: PERRL, EOM intact ENT: hearing intact, poor dentition - Neck Neck: supple, normal ROM - Respiratory Respiratory effort: normal Respiratory: bilateral: CTA - Cardiovascular Rhythm: regular Heart Sounds: Present: S1 & S2 Extremities: no ischemia, No edema - Gastrointestinal General gastrointestinal: Present: soft, non-tender, non-distended - Integumentary Integumentary: Present: clear, warm, dry - Neurologic Neurological: disoriented, strength equal bilaterally - Psychiatric Psychiatric: no cooperative, agitated - Labs CBC & Chem 7: 11/25/21 03:15 11/25/21 03:15 Lab Results: Laboratory Results - last 24 hr 11/25/21 11/25/21 11/25/21 03:15 03:15 04:29 WBC 12.0 H RBC 4.79 Hgb 13.4 Hct 41.4 MCV 86 MCH 28 MCHC 32 RDW 13.5 Plt Count 400 Lymph % (Auto) 8.4 L [place] % (Auto) 7.6 H Eos % (Auto) 0.1 Baso % (Auto) 0.1 Lymph # (Auto) 1.0 L [place] # (Auto) 0.9 H Eos # (Auto) 0.0 Baso # (Auto) 0.0 Seg Neutrophils % 83.8 H Seg Neutrophils # 10.0 H Sodium 140 Potassium 3.5 L Chloride 97.5 L Carbon Dioxide 27 Anion Gap 19 BUN 18 H Creatinine 0.9 Estimated GFR > 60 BUN/Creatinine Ratio 20 Glucose 187 H Calcium 10.3 H Magnesium 2.10 Total Bilirubin 0.70 AST 15 ALT 12 Alkaline Phosphatase 80 Total Creatine Kinase 117 Troponin T < 0.010 Total Protein 8.3 H Albumin 3.6 L Albumin/Globulin Ratio 0.8 Amylase 249 H Lipase 173 H Urine Color Urine Turbidity Urine pH Ur Specific [place] Urine Protein Urine Glucose (UA) Urine Ketones Urine Blood Urine Nitrite Urine Bilirubin Urine Urobilinogen Ur Leukocyte Esterase Urine WBC (Auto) Urine RBC (Auto) U Epithel Cells (Auto) Hyaline Casts Waxy Casts Urine Mucus SARS-CoV-2 (PCR) 11/25/21 11/25/21 06:13 09:45 WBC RBC Hgb Hct MCV MCH MCHC RDW Plt Count Lymph % (Auto) [place] % (Auto) Eos % (Auto) Baso % (Auto) Lymph # (Auto) [place] # (Auto) Eos # (Auto) Baso # (Auto) Seg Neutrophils % Seg Neutrophils # Sodium Potassium Chloride Carbon Dioxide Anion Gap BUN Creatinine Estimated GFR BUN/Creatinine Ratio Glucose Calcium Magnesium Total Bilirubin AST ALT Alkaline Phosphatase Total Creatine Kinase Troponin T Total Protein Albumin Albumin/Globulin Ratio Amylase Lipase Urine Color Yellow Urine Turbidity Clear Urine pH 5.0 Ur Specific [place] 1.010 Urine Protein 30 mg/dl Urine Glucose (UA) Negative Urine Ketones Trace Urine Blood Trace Urine Nitrite Negative Urine Bilirubin Negative Urine Urobilinogen 4.0 Ur Leukocyte Esterase Trace Urine WBC (Auto) 23.0 H Urine RBC (Auto) 181.0 U Epithel Cells (Auto) 54.0 H Hyaline Casts 451 Waxy Casts 83 Urine Mucus 3+ SARS-CoV-2 (PCR) Positive A Assessment and Plan - Patient Problems (1) Acute pancreatitis without infection or necrosis Current Visit: Yes Status: Acute Plan to address problem: - The pancreatitis may be related to acute COVID, but can not rule out a small gallstone in the CBD (2mm duct, but hx of cholecystectomy). - We will monitor labs, but the patient is currently too agitated to obtain an MRCP. - Since the LFTs are normal, we will not pursue ERCP at present. - Continue current abx and treatment of COVID. - Aggressive IV hydration, and would not give feeds at present both for agitation and pancreatitis.
[2021-11-25] MEDS: LORazepam 2 MG/ML VIAL IV PRN (20:43)
[2021-11-25] MEDS: SODIUM CHLORIDE 0.9% 50 ML IVPB IV SCH (21:32)
[2021-11-25] MEDS: hydrALAZINE 20 MG/1 ML INJ IV PRN (23:30)
[2021-11-25] MEDS ORDERED: HALOPERIDOL LACTATE 5 MG/1 ML INJ IM ONE (23:52)
[2021-11-26] MEDS: LORazepam 2 MG/ML VIAL IV PRN (02:21)
[2021-11-26] MEDS: HEPARIN 5,000 UNIT/1 ML VIAL SUB-Q SCH ×3 (06:17→22:46)
[2021-11-26] MEDS: PIPERACIL/TAZOBACTA 4.5/NS 100 4.5 GM/100 ML VIAL IV SCH ×3 (06:17→22:50)
[2021-11-26 06:21] LABS: Hematocrit 39.5 % (30.3-42.9); Hemoglobin 12.6 gm/dl (10.1-14.3); Mean Corpuscular HGB Conc 32 % (30-34); Mean Corpuscular Volume 87 fl (79-97); Platelet Count 346 K/mm3 (140-440); Red Blood Count 4.56 M/mm3 (3.65-5.03); Red Cell Distribution Width 13.4 % (13.2-15.2)
[2021-11-26 06:48] LABS: Alanine Aminotransferase 13 units/L (7-56); Albumin 2.9 g/dL (3.9-5); Blood Urea Nitrogen 8 mg/dL (7-17); Calcium 9.8 mg/dL (8.4-10.2); Hemolysis Index 72
[2021-11-26 07:01] LABS: BUN/Creatinine Ratio 13
--- NOTE | 2021-11-26 07:25 | Progress Note ---
Assessment and Plan Assessment and plan: Patient is a 81-year-old female vaccinated according to the son per the ER physician who spoke to the son presents to the ED with complaints of abdominal pain. According to further information obtained by the satisfied of the ED physicians note shows that the patient has not had any fever nausea vomiting or diarrhea but has been complaining of abdominal pain for the past few weeks. The pain increases to palpitations she appears to be nonverbal. Per the documentation the pain was so strong that the patient sat down but did not have a fall or syncopal episode or head trauma. On arrival to the ED initial work-up was pointing more towards pancreatitis with mildly elevated lipase and also CT of the abdomen Suggested pancreatitis. Is unclear to be if the patient responded to verbal or language barrier. I am awaiting to speak with the son also. Patient does not demonstrate any solid or hypoxia. Ultrasound suggestive of cholecystitis. CT scan abdomen pelvis 1. Acute pancreatitis. 2. Moderate colonic diverticulosis 3. Multifocal bilateral groundglass parenchymal disease likely secondary to Covid pneumonia. 4. Gallbladder surgically absent. On the gallbladder ultrasound, the technologist mistakenly measured an adjacent loop of duodenum rather than the gallbladder itself No evidence of cholecystitis. Acute pancreatitis Status postcholecystectomy Moderate colonic Diverticulosis Pneumonia possible COVID related Suspected COVID infection Morbid obesity Hypokalemia Abdominal pain Leukocytosis ?Acute Cystitis likely contaminated collection due to high eosin ophils. Will repeat if necessary. PLAN 11/26: This found on the pancreatitis could be secondary to her COVID 19. At this point we will continue aggressive IV hydration. I will patient is a little bit more rested we will obtain an MRCP to rule out any bile duct stones. GI and ID input appreciated. Per GI we will not feed at this time due to agitation. I also tried to call the son and left a message. We will replace potassium IV remdesivir for 3 days per infectious disease specialist IV FLUIDS PAIN CONTROL ABX Replace K ISOLATION FOR COVID MANAGEMENT Patient is not Hypoxic, will monitor clinically Cultures DVT/GI PROPHY Will obtain family with findings so far. Advance care directive discussed in detail for 30 mins. History Interval history: Patient seen and examined this morning remains nonverbal to me. She does nod her head to response to questions. Hospitalist Physical - Physical exam Narrative exam: VITAL SIGNS: Reviewed. GENERAL: The patient appears normally developed, morbidly obese vital signs as documented. HEAD: No signs of head trauma. EYES: Pupils are equal. Extraocular motions intact. EARS: Hearing grossly intact. MOUTH: Oropharynx is normal. NECK: No adenopathy, no JVD. CHEST: Chest with clear breath sounds bilaterally. No wheezes, rales, or rhonchi. CARDIAC: Regular rate and rhythm. S1 and S2, without murmurs, gallops, or rubs. VASCULAR: No Edema. Peripheral pulses normal and equal in all extremities. ABDOMEN: Soft, non tender and non distended. No rebound or guarding, and no masses palpated. Bowel Sounds normal. MUSCULOSKELETAL: Good range of motion of all major joints. Extremities without clubbing, cyanosis or edema. NEUROLOGIC EXAM: Alert and oriented x 1 not fully able to assess due to apparent confusion. No focal sensory or strength deficits. This phone. Follows some commands. PSYCHIATRIC: Mood normal. SKIN: detail exam as documented in skin assessment - Constitutional Vitals: Temp Pulse Resp BP Pulse Ox 98.2 F 99 H 20 175/87 95 11/26/21 07:04 11/25/21 23:30 11/26/21 07:04 11/26/21 07:04 11/26/21 02:00 HEART Score - HEART Score Troponin: Troponin T < 0.010 ng/mL (0.00-0.029) 11/25/21 04:29 Results - Labs CBC & Chem 7: 11/26/21 05:49 11/26/21 05:49 Labs: Laboratory Last Values WBC 15.3 K/mm3 (4.5-11.0) H 11/26/21 05:49 RBC 4.56 M/mm3 (3.65-5.03) 11/26/21 05:49 Hgb 12.6 gm/dl (10.1-14.3) 11/26/21 05:49 Hct 39.5 % (30.3-42.9) 11/26/21 05:49 MCV 87 fl (79-97) 11/26/21 05:49 MCH 28 pg (28-32) 11/26/21 05:49 MCHC 32 % (30-34) 11/26/21 05:49 RDW 13.4 % (13.2-15.2) 11/26/21 05:49 Plt Count 346 K/mm3 (140-440) 11/26/21 05:49 Lymph % (Auto) 8.4 % (13.4-35.0) L 11/25/21 03:15 [place] % (Auto) 7.6 % (0.0-7.3) H 11/25/21 03:15 Eos % (Auto) 0.1 % (0.0-4.3) 11/25/21 03:15 Baso % (Auto) 0.1 % (0.0-1.8) 11/25/21 03:15 Lymph # (Auto) 1.0 K/mm3 (1.2-5.4) L 11/25/21 03:15 [place] # (Auto) 0.9 K/mm3 (0.0-0.8) H 11/25/21 03:15 Eos # (Auto) 0.0 K/mm3 (0.0-0.4) 11/25/21 03:15 Baso # (Auto) 0.0 K/mm3 (0.0-0.1) 11/25/21 03:15 Seg Neutrophils % 83.8 % (40.0-70.0) H 11/25/21 03:15 Seg Neutrophils # 10.0 K/mm3 (1.8-7.7) H 11/25/21 03:15 Sodium 138 mmol/L (137-145) 11/26/21 05:49 Potassium 3.0 mmol/L (3.6-5.0) L 11/26/21 05:49 Chloride 98.5 mmol/L (98-107) 11/26/21 05:49 Carbon Dioxide 25 mmol/L (22-30) 11/26/21 05:49 Anion Gap 18 mmol/L 11/26/21 05:49 BUN 8 mg/dL (7-17) 11/26/21 05:49 Creatinine 0.6 mg/dL (0.6-1.2) 11/26/21 05:49 Estimated GFR > 60 ml/min 11/26/21 05:49 BUN/Creatinine Ratio 13 % 11/26/21 05:49 Glucose 196 mg/dL (65-100) H 11/26/21 05:49 Calcium 9.8 mg/dL (8.4-10.2) 11/26/21 05:49 Magnesium 2.10 mg/dL (1.7-2.3) 11/25/21 04:29 Total Bilirubin 0.80 mg/dL (0.1-1.2) 11/26/21 05:49 AST 20 units/L (5-40) 11/26/21 05:49 ALT 13 units/L (7-56) 11/26/21 05:49 Alkaline Phosphatase 89 units/L (35-129) 11/26/21 05:49 Total Creatine Kinase 117 units/L (30-135) 11/25/21 04:29 Troponin T < 0.010 ng/mL (0.00-0.029) 11/25/21 04:29 Total Protein 7.7 g/dL (6.3-8.2) 11/26/21 05:49 Albumin 2.9 g/dL (3.9-5) L 11/26/21 05:49 Albumin/Globulin Ratio 0.6 % 11/26/21 05:49 Amylase 249 units/L (27-131) H 11/25/21 03:15 Lipase 53 units/L (13-60) 11/26/21 05:49 Urine Color Yellow (Yellow) 11/25/21 06:13 Urine Turbidity Clear (Clear) 11/25/21 06:13 Urine pH 5.0 (5.0-7.0) 11/25/21 06:13 Ur Specific [place] 1.010 (1.003-1.030) 11/25/21 06:13 Urine Protein 30 mg/dl mg/dL (Negative) 11/25/21 06:13 Urine Glucose (UA) Negative mg/dL (Negative) 11/25/21 06:13 Urine Ketones Trace mg/dL (Negative) 11/25/21 06:13 Urine Blood Trace (Negative) 11/25/21 06:13 Urine Nitrite Negative (Negative) 11/25/21 06:13 Urine Bilirubin Negative (Negative) 11/25/21 06:13 Urine Urobilinogen 4.0 mg/dL (<2.0) 11/25/21 06:13 Ur Leukocyte Esterase Trace (Negative) 11/25/21 06:13 Urine WBC (Auto) 23.0 /HPF (0.0-6.0) H 11/25/21 06:13 Urine RBC (Auto) 181.0 /HPF (0.0-6.0) 11/25/21 06:13 U Epithel Cells (Auto) 54.0 /HPF (0-13.0) H 11/25/21 06:13 Hyaline Casts 451 /LPF 11/25/21 06:13 Waxy Casts 83 /LPF 11/25/21 06:13 Urine Mucus 3+ /HPF 11/25/21 06:13 SARS-CoV-2 (PCR) Positive (Negative) A 11/25/21 09:45 Microbiology: Microbiology 11/25/21 05:51 Peripheral/Venous Blood Culture - Preliminary Culture in Progress 11/25/21 05:58 Peripheral/Venous Blood Culture - Preliminary Culture in Progress Bean/IV: Voiding Method Incontinent Active Medications - Current Medications Current Medications: Generic Name Dose Route Start Last Admin Trade Name Freq PRN Reason Stop Dose Admin Acetaminophen 650 mg 11/25/21 09:00 Acetaminophen 325 Mg Tab PO Q4H PRN Pain MILD(1-3)/Fever >100.5/TRIPLETT Albuterol 2.5 mg 11/25/21 09:00 Albuterol 2.5 Mg/3 Ml Nebu IH Q4HRT PRN Shortness Of Breath Heparin Sodium (Porcine) 5,000 unit 11/25/21 14:00 11/26/21 06:17 Heparin 5,000 Unit/1 Ml Vial SUB-Q 5,000 unit Q8HR ELIESER Administration Hydralazine HCl 10 mg 11/25/21 09:51 11/25/21 23:30 Hydralazine 20 Mg/1 Ml Inj IV 10 mg Q4HR PRN Administration Hypertension Dextrose/Sodium Chloride 1,000 mls @ 100 mls/hr 11/25/21 09:00 D5ns IV DIRECT ELIESER Piperacillin Sod/Tazobactam Sod 4.5 gm in 100 mls @ 200 mls/hr 11/25/21 09:00 11/26/21 06:17 Zosyn/Ns 4.5gm/100ml IV 200 mls/hr Q8HR ELIESER Administration Protocol Remdesivir 100 mg/ Sodium 250 mls @ 500 mls/hr 11/26/21 14:00 Chloride IV 11/27/21 14:29 Q24HR@1400 ELIESER Lorazepam 1 mg 11/25/21 20:01 11/26/21 02:21 Lorazepam 2 Mg/Ml Vial IV 1 mg Q6H PRN Administration Agitation Naloxone HCl 0.1 mg 11/25/21 09:00 Naloxone 0.4 Mg/1 Ml Inj IV Q2MIN PRN Res Rate </= 8 or 02 SAT < 92% Ondansetron HCl 4 mg 11/25/21 09:00 Ondansetron 4 Mg/2 Ml Inj IV Q4H PRN Nausea And Vomiting Oxycodone/Acetaminophen 1 tab 11/25/21 09:00 Oxycodone /Acetaminophen 5-325mg Tab PO Q6H PRN Pain, Moderate (4-6) Senna 8.6 mg 11/25/21 10:00 11/25/21 21:00 Sennosides 8.6 Mg Tab PO 8.6 mg Q12HR ELIESER Administration Sodium Chloride 10 ml 11/25/21 10:00 11/25/21 21:00 Sodium Chloride 0.9% 10 Ml Flush Syringe IV 10 ml BID ELIESER Administration Sodium Chloride 10 ml 11/25/21 08:50 Sodium Chloride 0.9% 10 Ml Flush Syringe IV PRN PRN LINE FLUSH Sodium Chloride 50 ml 11/25/21 14:00 11/25/21 21:32 Sodium Chloride 0.9% 50 Ml Ivpb IV 11/26/21 14:01 50 ml Q24HR@1400 ELIESER Administration
[2021-11-26 08:12] LABS: Basophils % (Auto) 0.2 % (0.0-1.8); Lymphocytes % (Auto) 6.5 % (13.4-35.0); Monocytes # (Auto) 1.2 K/mm3 (0.0-0.8); Monocytes % (Auto) 7.9 % (0.0-7.3)
[2021-11-26] MEDS: POTASSIUM CHLORIDE 10 MEQ 10 MEQ/100 ML BAG IV SCH ×2 (08:41→10:57)
--- NOTE | 2021-11-26 08:55 | Progress Note ---
Assessment and Plan Cultures: SARS CoV2 PCR: Positive 11/25/2021 blood culture: In process A/P: 81-year-old female with hypertension who was admitted to the hospital with complaints of abdominal pain: #Bilateral pneumonia: Secondary to COVID-19. Vaccinated. On room air. Considering her age, she is at risk of severe COVID-19, hence treat with Remdesivir for 3 days. #Acute pancreatitis: Gallbladder surgically absent on CT. There have been some reports of pancreatitis secondary to COVID-19. Recs: -Since patient is not hypoxic, steroids not needed -IV remdesivir x 3 days (Considering her age, she is at risk of severe COVID-19) -If patient develops hypoxia, start steroids and extend remdesivir course to 5 days -prophylactic anticoagulation based on d-dimer per hospital protocol -if procalcitonin is low, abx not needed. Remains pending -trend ferritin, d-dimer, CRP every 2-3 days Trey Morillo MD [facility] O: [phone] F: [phone] Subjective Date of service: 11/26/21 Interval history: Afebrile, white count elevated 15.3. Objective - Exam Narrative Exam: Physical exam deferred to reduce risk of transmission of COVID-19. Please refer to primary team's note. - Constitutional Vitals: Vital Signs Temp Pulse Resp BP Pulse Ox 98.2 F 99 H 20 175/87 95 11/26/21 07:04 11/25/21 23:30 11/26/21 07:04 11/26/21 07:04 11/26/21 02:00 Temperature -Last 24 Hours Temperature 98.2 F Temperature 97.4 F Temperature 97 F Temperature 97.0 F - Labs CBC & Chem 7: 11/26/21 05:49 11/26/21 05:49 Labs: Abnormal lab results 11/25/21 11/26/21 11/26/21 Range/Units 09:45 05:49 05:49 WBC 15.3 H (4.5-11.0) K/mm3 Lymph % (Auto) 6.5 L (13.4-35.0) % [place] % (Auto) 7.9 H (0.0-7.3) % Lymph # (Auto) 1.0 L (1.2-5.4) K/mm3 [place] # (Auto) 1.2 H (0.0-0.8) K/mm3 Seg Neutrophils % 85.4 H (40.0-70.0) % Seg Neutrophils # 12.7 H (1.8-7.7) K/mm3 Potassium 3.0 L (3.6-5.0) mmol/L Glucose 196 H (65-100) mg/dL Albumin 2.9 L (3.9-5) g/dL SARS-CoV-2 (PCR) Positive A (Negative)
[2021-11-26 10:30] LABS: Basophils % (Manual) 0 % (0.0-1.8); Eosinophils % (Manual) 0 % (0.0-4.3); Total Cells Counted 100
[2021-11-26 10:32] LABS: Large Platelets Rare; Platelet Estimate Consistent w Auto; RBC Morphology Normal
[2021-11-26] MEDS: SENNOSIDES 8.6 MG TAB PO SCH ×2 (10:58→22:50)
[2021-11-26] MEDS: ENALAPRILAT 2.5 MG/2 ML INJ IV SCH ×4 (12:15→22:55)
[2021-11-26] MEDS: REMDESIVIR 100 MG in SODIUM CHLORIDE 0.9% 250ML 250 ML IV SCH (14:58)
[2021-11-26] MEDS: SODIUM CHLORIDE 0.9% 50 ML IVPB IV SCH (14:59)
--- NOTE | 2021-11-26 15:15 | Gastroenterology Progress Note ---
Assessment and Plan - Patient Problems (1) Acute pancreatitis without infection or necrosis Current Visit: Yes Status: Acute Plan to address problem: - The pancreatitis may be related to acute COVID, but can not rule out a small gallstone in the CBD (2mm duct, but hx of cholecystectomy). - We will monitor labs, but the patient is currently too agitated to obtain an MRCP. - Since the LFTs are normal, we will not pursue ERCP at present. - Continue current abx and treatment of COVID. - Aggressive IV hydration, and would not give feeds at present both for agitation and pancreatitis. Subjective Date of service: 11/26/21 Principal diagnosis: Pancreatitis Interval history: The patient remains confused, agitated, and in distress (uresponsive to commands, moaning). Objective - Constitutional Vitals: Temp Pulse Resp BP Pulse Ox 98.0 F 87 18 190/99 100 11/26/21 11:36 11/26/21 11:36 11/26/21 11:36 11/26/21 11:36 11/26/21 11:36 General appearance: mild distress - EENT ENT: hearing intact, clear oral mucosa - Respiratory Respiratory effort: normal Respiratory: bilateral: CTA - Cardiovascular Rhythm: regular Heart Sounds: Present: S1 & S2 - Gastrointestinal General gastrointestinal: Present: soft, tender (Tender to palpation but not rigid), non-distended - Labs CBC & Chem 7: 11/26/21 05:49 11/26/21 05:49 Labs: Laboratory Results - last 24 hr 11/25/21 11/26/21 11/26/21 09:30 05:49 05:49 WBC 15.3 H RBC 4.56 Hgb 12.6 Hct 39.5 MCV 87 MCH 28 MCHC 32 RDW 13.4 Plt Count 346 Lymph % (Auto) 6.5 L [place] % (Auto) 7.9 H Eos % (Auto) 0.0 Baso % (Auto) 0.2 Lymph # (Auto) 1.0 L [place] # (Auto) 1.2 H Eos # (Auto) 0.0 Baso # (Auto) 0.0 Add Manual Diff Complete Total Counted 100 Seg Neutrophils % 85.4 H Seg Neuts % (Manual) 89.0 H Band Neutrophils % 0 Lymphocytes % (Manual) 2.0 L Reactive Lymphs % (Man) 1.0 Monocytes % (Manual) 8.0 H Eosinophils % (Manual) 0 Basophils % (Manual) 0 Metamyelocytes % 0 Myelocytes % 0 Promyelocytes % 0 Blast Cells % 0 Nucleated RBC % Not Reportable Seg Neutrophils # 12.7 H Seg Neutrophils # Man 13.6 H Band Neutrophils # 0.0 Lymphocytes # (Manual) 0.3 L Abs React Lymphs (Man) 0.2 Monocytes # (Manual) 1.2 H Eosinophils # (Manual) 0.0 Basophils # (Manual) 0.0 Metamyelocytes # 0.0 Myelocytes # 0.0 Promyelocytes # 0.0 Blast Cells # 0.0 WBC Morphology Not Reportable Hypersegmented Neuts Not Reportable Hyposegmented Neuts Not Reportable Hypogranular Neuts Not Reportable Smudge Cells Not Reportable Toxic Granulation Not Reportable Toxic Vacuolation Not Reportable Dohle Bodies Not Reportable Pelger-Huet Anomaly Not Reportable Jesse Rods Not Reportable Platelet Estimate Consistent w auto Clumped Platelets Not Reportable Plt Clumps, EDTA Not Reportable Large Platelets Rare Giant Platelets Not Reportable Platelet Satelliting Not Reportable Plt Morphology Comment Not Reportable RBC Morphology Normal Dimorphic RBCs Not Reportable Polychromasia Not Reportable Hypochromasia Not Reportable Poikilocytosis Not Reportable Anisocytosis Not Reportable Microcytosis Not Reportable Macrocytosis Not Reportable Spherocytes Not Reportable Pappenheimer Bodies Not Reportable Sickle Cells Not Reportable Target Cells Not Reportable Tear Drop Cells Not Reportable Ovalocytes Not Reportable Helmet Cells Not Reportable [place] Bodies Not Reportable Majestic Rings Not Reportable Kelsy Cells Not Reportable Bite Cells Not Reportable Crenated Cell Not Reportable Elliptocytes Not Reportable Acanthocytes (Spur) Not Reportable Rouleaux Not Reportable Hemoglobin C Crystals Not Reportable Schistocytes Not Reportable Malaria parasites Not Reportable Papito Bodies Not Reportable Hem Pathologist Commnt No Sodium 138 Potassium 3.0 L Chloride 98.5 Carbon Dioxide 25 Anion Gap 18 BUN 8 Creatinine 0.6 Estimated GFR > 60 BUN/Creatinine Ratio 13 Glucose 196 H Calcium 9.8 Total Bilirubin 0.80 AST 20 ALT 13 Alkaline Phosphatase 89 Total Protein 7.7 Albumin 2.9 L Albumin/Globulin Ratio 0.6 Lipase 53 Procalcitonin 0.11
[2021-11-26] MEDS: MORPHINE 2 MG/1 ML INJ IV PRN (16:22)
[2021-11-26] MEDS: hydrALAZINE 20 MG/1 ML INJ IV PRN (17:46)
[2021-11-27] MEDS: PIPERACIL/TAZOBACTA 4.5/NS 100 4.5 GM/100 ML VIAL IV SCH ×3 (05:09→22:46)
[2021-11-27] MEDS: ENALAPRILAT 2.5 MG/2 ML INJ IV SCH (05:09)
[2021-11-27] MEDS: hydrALAZINE 20 MG/1 ML INJ IV PRN ×2 (05:10→15:51)
[2021-11-27] MEDS: HEPARIN 5,000 UNIT/1 ML VIAL SUB-Q SCH ×3 (05:10→22:47)
[2021-11-27 05:53] LABS: Hematocrit 36.8 % (30.3-42.9); Hemoglobin 12.4 gm/dl (10.1-14.3); Mean Corpuscular HGB Conc 34 % (30-34); Mean Corpuscular Volume 87 fl (79-97); Platelet Count 297 K/mm3 (140-440); Red Blood Count 4.25 M/mm3 (3.65-5.03); Red Cell Distribution Width 13.2 % (13.2-15.2)
[2021-11-27 06:15] LABS: Alanine Aminotransferase 13 units/L (7-56); Albumin 2.5 g/dL (3.9-5); BUN/Creatinine Ratio 16; Blood Urea Nitrogen 11 mg/dL (7-17); Calcium 9.4 mg/dL (8.4-10.2); Hemolysis Index 14
--- NOTE | 2021-11-27 07:22 | Progress Note ---
Assessment and Plan Assessment and plan: Patient is a 81-year-old female vaccinated according to the son per the ER physician who spoke to the son presents to the ED with complaints of abdominal pain. According to further information obtained by the satisfied of the ED physicians note shows that the patient has not had any fever nausea vomiting or diarrhea but has been complaining of abdominal pain for the past few weeks. The pain increases to palpitations she appears to be nonverbal. Per the documentation the pain was so strong that the patient sat down but did not have a fall or syncopal episode or head trauma. On arrival to the ED initial work-up was pointing more towards pancreatitis with mildly elevated lipase and also CT of the abdomen Suggested pancreatitis. Is unclear to be if the patient responded to verbal or language barrier. I am awaiting to speak with the son also. Patient does not demonstrate any solid or hypoxia. Ultrasound suggestive of cholecystitis. CT scan abdomen pelvis 1. Acute pancreatitis. 2. Moderate colonic diverticulosis 3. Multifocal bilateral groundglass parenchymal disease likely secondary to Covid pneumonia. 4. Gallbladder surgically absent. On the gallbladder ultrasound, the technologist mistakenly measured an adjacent loop of duodenum rather than the gallbladder itself No evidence of cholecystitis. Acute pancreatitis Status postcholecystectomy Acute metabolic encephalopathy present on admission Moderate colonic Diverticulosis Pneumonia possible COVID related Suspected COVID infection Morbid obesity Hypokalemia Abdominal pain Leukocytosis ?Acute Cystitis likely contaminated collection due to high eosinophils. Will repeat if necessary. PLAN 11/26: This found on the pancreatitis could be secondary to her COVID 19. At this point we will continue aggressive IV hydration. I will patient is a little bit more rested we will obtain an MRCP to rule out any bile duct stones. GI and ID input appreciated. Per GI we will not feed at this time due to agitation. I also tried to call the son and left a message. We will replace potassium IV remdesivir for 3 days per infectious disease specialist 11/27: Patient continues with acute confusion. As a result we will obtain a head CT to rule out other pathology. Initially I thought that this was a c ommunication issue of possible different language but today she is able to answer some simple questions but still confused. Blood pressure was elevated throughout the night but improved with IV as needed medication. But the son the patient does not take any medications at home and was not perfect good health. We will obtain neurology consultation for change in mental status. We will review CT when available and make further recommendations as a result. Patient will receive additional dose of remdesivir to complete a 3 days. She is not hypoxic so no indication for steroids will decrease fluids to 75 cc an hour and will stop once tube feed has been initiated to prevent fluid overload. Replace potassium check magnesium IV FLUIDS PAIN CONTROL ABX Replace K ISOLATION FOR COVID MANAGEMENT Patient is not Hypoxic, will monitor clinically Cultures DVT/GI PROPHY Will obtain family with findings so far. Advance care directive discussed in detail for 30 mins. History Interval history: Patient seen and examined this morning while she remains confused she is more awake and answering some questions but still not following all commands as a r esult remains in restraints. The son states that the patient was in perfectly good health and was not on any medications outpatient. Hospitalist Physical - Physical exam Narrative exam: VITAL SIGNS: Reviewed. GENERAL: The patient appears normally developed, morbidly obese vital signs as documented. HEAD: No signs of head trauma. EYES: Pupils are equal. Extraocular motions intact. EARS: Hearing grossly intact. MOUTH: Oropharynx is normal. NECK: No adenopathy, no JVD. CHEST: Chest with clear breath sounds bilaterally. No wheezes, rales, or rhonchi. CARDIAC: Regular rate and rhythm. S1 and S2, without murmurs, gallops, or rubs. VASCULAR: No Edema. Peripheral pulses normal and equal in all extremities. ABDOMEN: Soft, non tender and non distended. No rebound or guarding, and no masses palpated. Bowel Sounds normal. MUSCULOSKELETAL: Good range of motion of all major joints. Extremities without clubbing, cyanosis or edema. NEUROLOGIC EXAM: Alert and oriented x 1 . No focal sensory or strength deficits. Dysphonia, follows some commands. PSYCHIATRIC: Mood normal. SKIN: detail exam as documented in skin assessment - Constitutional Vitals: Temp Pulse Resp BP Pulse Ox 97.6 F 85 16 140/62 95 11/27/21 03:56 11/27/21 06:15 11/27/21 03:56 11/27/21 06:15 11/27/21 03:56 HEART Score - HEART Score Troponin: Troponin T < 0.010 ng/mL (0.00-0.029) 11/25/21 04:29 Results - Labs CBC & Chem 7: 11/27/21 05:32 11/27/21 05:32 Labs: Laboratory Last Values WBC 13.6 K/mm3 (4.5-11.0) H 11/27/21 05:32 RBC 4.25 M/mm3 (3.65-5.03) 11/27/21 05:32 Hgb 12.4 gm/dl (10.1-14.3) 11/27/21 05:32 Hct 36.8 % (30.3-42.9) 11/27/21 05:32 MCV 87 fl (79-97) 11/27/21 05:32 MCH 29 pg (28-32) 11/27/21 05:32 MCHC 34 % (30-34) 11/27/21 05:32 RDW 13.2 % (13.2-15.2) 11/27/21 05:32 Plt Count 297 K/mm3 (140-440) 11/27/21 05:32 Lymph % (Auto) 6.5 % (13.4-35.0) L 11/26/21 05:49 Dillon % (Auto) 7.9 % (0.0-7.3) H 11/26/21 05:49 Eos % (Auto) 0.0 % (0.0-4.3) 11/26/21 05:49 Baso % (Auto) 0.2 % (0.0-1.8) 11/26/21 05:49 Lymph # (Auto) 1.0 K/mm3 (1.2-5.4) L 11/26/21 05:49 Dillon # (Auto) 1.2 K/mm3 (0.0-0.8) H 11/26/21 05:49 Eos # (Auto) 0.0 K/mm3 (0.0-0.4) 11/26/21 05:49 Baso # (Auto) 0.0 K/mm3 (0.0-0.1) 11/26/21 05:49 Add Manual Diff Complete 11/26/21 05:49 Total Counted 100 11/26/21 05:49 Seg Neutrophils % 85.4 % (40.0-70.0) H 11/26/21 05:49 Seg Neuts % (Manual) 89.0 % (40.0-70.0) H 11/26/21 05:49 Band Neutrophils % 0 % 11/26/21 05:49 Lymphocytes % (Manual) 2.0 % (13.4-35.0) L 11/26/21 05:49 Reactive Lymphs % (Man) 1.0 % 11/26/21 05:49 Monocytes % (Manual) 8.0 % (0.0-7.3) H 11/26/21 05:49 Eosinophils % (Manual) 0 % (0.0-4.3) 11/26/21 05:49 Basophils % (Manual) 0 % (0.0-1.8) 11/26/21 05:49 Metamyelocytes % 0 % 11/26/21 05:49 Myelocytes % 0 % 11/26/21 05:49 Promyelocytes % 0 % 11/26/21 05:49 Blast Cells % 0 % 11/26/21 05:49 Nucleated RBC % Not Reportable 11/26/21 05:49 Seg Neutrophils # 12.7 K/mm3 (1.8-7.7) H 11/26/21 05:49 Seg Neutrophils # Man 13.6 K/mm3 (1.8-7.7) H 11/26/21 05:49 Band Neutrophils # 0.0 K/mm3 11/26/21 05:49 Lymphocytes # (Manual) 0.3 K/mm3 (1.2-5.4) L 11/26/21 05:49 Abs React Lymphs (Man) 0.2 K/mm3 11/26/21 05:49 Monocytes # (Manual) 1.2 K/mm3 (0.0-0.8) H 11/26/21 05:49 Eosinophils # (Manual) 0.0 K/mm3 (0.0-0.4) 11/26/21 05:49 Basophils # (Manual) 0.0 K/mm3 (0.0-0.1) 11/26/21 05:49 Metamyelocytes # 0.0 K/mm3 11/26/21 05:49 Myelocytes # 0.0 K/mm3 11/26/21 05:49 Promyelocytes # 0.0 K/mm3 11/26/21 05:49 Blast Cells # 0.0 K/mm3 11/26/21 05:49 WBC Morphology Not Reportable 11/26/21 05:49 Hypersegmented Neuts Not Reportable 11/26/21 05:49 Hyposegmented Neuts Not Reportable 11/26/21 05:49 Hypogranular Neuts Not Reportable 11/26/21 05:49 Smudge Cells Not Reportable 11/26/21 05:49 Toxic Granulation Not Reportable 11/26/21 05:49 Toxic Vacuolation Not Reportable 11/26/21 05:49 Dohle Bodies Not Reportable 11/26/21 05:49 Pelger-Huet Anomaly Not Reportable 11/26/21 05:49 Jesse Rods Not Reportable 11/26/21 05:49 Platelet Estimate Consistent w auto 11/26/21 05:49 Clumped Platelets Not Reportable 11/26/21 05:49 Plt Clumps, EDTA Not Reportable 11/26/21 05:49 Large Platelets Rare 11/26/21 05:49 Giant Platelets Not Reportable 11/26/21 05:49 Platelet Satelliting Not Reportable 11/26/21 05:49 Plt Morphology Comment Not Reportable 11/26/21 05:49 RBC Morphology Normal 11/26/21 05:49 Dimorphic RBCs Not Reportable 11/26/21 05:49 Polychromasia Not Reportable 11/26/21 05:49 Hypochromasia Not Reportable 11/26/21 05:49 Poikilocytosis Not Reportable 11/26/21 05:49 Anisocytosis Not Reportable 11/26/21 05:49 Microcytosis Not Reportable 11/26/21 05:49 Macrocytosis Not Reportable 11/26/21 05:49 Spherocytes Not Reportable 11/26/21 05:49 Pappenheimer Bodies Not Reportable 11/26/21 05:49 Sickle Cells Not Reportable 11/26/21 05:49 Target Cells Not Reportable 11/26/21 05:49 Tear Drop Cells Not Reportable 11/26/21 05:49 Ovalocytes Not Reportable 11/26/21 05:49 Helmet Cells Not Reportable 11/26/21 05:49 Arreguin-Ephesus Bodies Not Reportable 11/26/21 05:49 [place] Rings Not Reportable 11/26/21 05:49 [place] Cells Not Reportable 11/26/21 05:49 Bite Cells Not Reportable 11/26/21 05:49 Crenated Cell Not Reportable 11/26/21 05:49 Elliptocytes Not Reportable 11/26/21 05:49 Acanthocytes (Spur) Not Reportable 11/26/21 05:49 Rouleaux Not Reportable 11/26/21 05:49 Hemoglobin C Crystals Not Reportable 11/26/21 05:49 Schistocytes Not Reportable 11/26/21 05:49 Malaria parasites Not Reportable 11/26/21 05:49 Papito Bodies Not Reportable 11/26/21 05:49 Hem Pathologist Commnt No 11/26/21 05:49 Sodium 146 mmol/L (137-145) H D 11/27/21 05:32 Potassium 2.5 mmol/L (3.6-5.0) L* 11/27/21 05:32 Chloride 104.9 mmol/L (98-107) 11/27/21 05:32 Carbon Dioxide 27 mmol/L (22-30) 11/27/21 05:32 Anion Gap 17 mmol/L 11/27/21 05:32 BUN 11 mg/dL (7-17) 11/27/21 05:32 Creatinine 0.7 mg/dL (0.6-1.2) 11/27/21 05:32 Estimated GFR > 60 ml/min 11/27/21 05:32 BUN/Creatinine Ratio 16 % 11/27/21 05:32 Glucose 193 mg/dL (65-100) H 11/27/21 05:32 Calcium 9.4 mg/dL (8.4-10.2) 11/27/21 05:32 Magnesium 2.10 mg/dL (1.7-2.3) 11/25/21 04:29 Total Bilirubin 0.80 mg/dL (0.1-1.2) 11/27/21 05:32 AST 16 units/L (5-40) 11/27/21 05:32 ALT 13 units/L (7-56) 11/27/21 05:32 Alkaline Phosphatase 79 units/L (35-129) 11/27/21 05:32 Total Creatine Kinase 117 units/L (30-135) 11/25/21 04:29 Troponin T < 0.010 ng/mL (0.00-0.029) 11/25/21 04:29 Total Protein 6.8 g/dL (6.3-8.2) 11/27/21 05:32 Albumin 2.5 g/dL (3.9-5) L 11/27/21 05:32 Albumin/Globulin Ratio 0.6 % 11/27/21 05:32 Amylase 249 units/L (27-131) H 11/25/21 03:15 Lipase 61 units/L (13-60) H 11/27/21 05:32 Procalcitonin 0.11 ng/mL (<0.15) 11/25/21 09:30 Urine Color Yellow (Yellow) 11/25/21 06:13 Urine Turbidity Clear (Clear) 11/25/21 06:13 Urine pH 5.0 (5.0-7.0) 11/25/21 06:13 Ur Specific [place] 1.010 (1.003-1.030) 11/25/21 06:13 Urine Protein 30 mg/dl mg/dL (Negative) 11/25/21 06:13 Urine Glucose (UA) Negative mg/dL (Negative) 11/25/21 06:13 Urine Ketones Trace mg/dL (Negative) 11/25/21 06:13 Urine Blood Trace (Negative) 11/25/21 06:13 Urine Nitrite Negative (Negative) 11/25/21 06:13 Urine Bilirubin Negative (Negative) 11/25/21 06:13 Urine Urobilinogen 4.0 mg/dL (<2.0) 11/25/21 06:13 Ur Leukocyte Esterase Trace (Negative) 11/25/21 06:13 Urine WBC (Auto) 23.0 /HPF (0.0-6.0) H 11/25/21 06:13 Urine RBC (Auto) 181.0 /HPF (0.0-6.0) 11/25/21 06:13 U Epithel Cells (Auto) 54.0 /HPF (0-13.0) H 11/25/21 06:13 Hyaline Casts 451 /LPF 11/25/21 06:13 Waxy Casts 83 /LPF 11/25/21 06:13 Urine Mucus 3+ /HPF 11/25/21 06:13 SARS-CoV-2 (PCR) Positive (Negative) A 11/25/21 09:45 Microbiology: Microbiology 11/25/21 06:13 Urine,Clean Catch Urine Culture - Preliminary 11/25/21 05:58 Peripheral/Venous Blood Culture - Preliminary NO GROWTH AFTER 24 HOURS 11/25/21 05:51 Peripheral/Venous Blood Culture - Preliminary NO GROWTH AFTER 24 HOURS Bean/IV: Voiding Method Incontinent Active Medications - Current Medications Current Medications: Generic Name Dose Route Start Last Admin Trade Name Freq PRN Reason Stop Dose Admin Acetaminophen 650 mg 11/25/21 09:00 Acetaminophen 325 Mg Tab PO Q4H PRN Pain MILD(1-3)/Fever >100.5/TRIPLETT Albuterol 2.5 mg 11/25/21 09:00 Albuterol 2.5 Mg/3 Ml Nebu IH Q4HRT PRN Shortness Of Breath Enalaprilat 1.25 mg 11/26/21 10:00 11/27/21 05:09 Enalaprilat 2.5 Mg/2 Ml Inj IV 1.25 mg Q6H ELIESER Administration Heparin Sodium (Porcine) 5,000 unit 11/25/21 14:00 11/27/21 05:10 Heparin 5,000 Unit/1 Ml Vial SUB-Q 5,000 unit Q8HR ELIESER Administration Hydralazine HCl 10 mg 11/25/21 09:51 11/27/21 05:10 Hydralazine 20 Mg/1 Ml Inj IV 10 mg Q4HR PRN Administration Hypertension Dextrose/Sodium Chloride 1,000 mls @ 100 mls/hr 11/25/21 09:00 D5ns IV DIRECT ELIESER Piperacillin Sod/Tazobactam Sod 4.5 gm in 100 mls @ 200 mls/hr 11/25/21 09:00 11/27/21 05:09 Zosyn/Ns 4.5gm/100ml IV 200 mls/hr Q8HR ELIESER Administration Protocol Remdesivir 100 mg/ Sodium 250 mls @ 500 mls/hr 11/26/21 14:00 11/26/21 17:47 Chloride IV 11/27/21 14:29 Infused Q24HR@1400 ELIESER Infusion Potassium Chloride 10 meq in 100 mls @ 100 mls/hr 11/27/21 08:00 Kcl 10meq/100ml IV 11/27/21 09:59 Q1H ELIESER Lorazepam 1 mg 11/25/21 20:01 11/26/21 02:21 Lorazepam 2 Mg/Ml Vial IV 1 mg Q6H PRN Administration Agitation Morphine Sulfate 1 mg 11/26/21 15:14 11/26/21 16:22 Morphine 2 Mg/1 Ml Inj IV 1 mg Q4H PRN Administration Pain, Moderate (4-6) Naloxone HCl 0.1 mg 11/25/21 09:00 Naloxone 0.4 Mg/1 Ml Inj IV Q2MIN PRN Res Rate </= 8 or 02 SAT < 92% Ondansetron HCl 4 mg 11/25/21 09:00 Ondansetron 4 Mg/2 Ml Inj IV Q4H PRN Nausea And Vomiting Pantoprazole Sodium 40 mg 11/27/21 10:00 Pantoprazole 40 Mg Inj IV QDAY ELIESER Senna 8.6 mg 11/25/21 10:00 11/26/21 22:50 Sennosides 8.6 Mg Tab PO Not Given Q12HR ELIESER Sodium Chloride 10 ml 11/25/21 10:00 11/26/21 22:55 Sodium Chloride 0.9% 10 Ml Flush Syringe IV 10 ml BID ELIESER Administration Sodium Chloride 10 ml 11/25/21 08:50 Sodium Chloride 0.9% 10 Ml Flush Syringe IV PRN PRN LINE FLUSH Sodium Chloride 50 ml 11/25/21 14:00 11/26/21 14:59 Sodium Chloride 0.9% 50 Ml Ivpb IV 11/27/21 14:01 50 ml Q24HR@1400 ELIESER Administration
[2021-11-27] MEDS ORDERED: cloNIDine TTS 0.1 MG/24 HR PATCH TD SCH (08:00)
[2021-11-27] MEDS: PANTOPRAZOLE 40 MG INJ IV SCH (08:59)
[2021-11-27] MEDS: LORazepam 2 MG/ML VIAL IV PRN (08:59)
[2021-11-27] MEDS ORDERED: POTASSIUM CHLORIDE 20 MEQ PACKET FEEDTUBE SCH (09:00)
[2021-11-27] MEDS: POTASSIUM CHLORIDE 10 MEQ 10 MEQ/100 ML BAG IV SCH ×2 (09:14→12:05)
--- NOTE | 2021-11-27 10:37 | Cat Scan Report ---
NONENHANCED CT SCAN OF THE HEAD: INDICATION / CLINICAL INFORMATION: 81 years Female; ams--best study possible. TECHNIQUE: Routine CT head without contrast. All CT scans at this location are performed using CT dos e reduction for ALARA by means of automated exposure control. Best possible images were obtained COMPARISON: None. FINDINGS: BRAIN / INTRACRANIAL CONTENTS: No acute hemorrhage, mass effect, midline shift, hydrocephalus, or acu te, large territorial infarct. Mild cortical involution; mild cerebellar involution; ventriculomegaly ; dilatation of temporal horn tips due to volume loss in the medial temporal lobes; periventricular l ow-attenuation due to chronic small vessel disease CRANIOCERVICAL JUNCTION: No significant abnormality. ORBITS: No significant abnormality of visualized orbits. SINUSES / MASTOIDS: No significant abnormality of the visualized paranasal sinuses or mastoid air haylee ls. ADDITIONAL FINDINGS: None. IMPRESSION: Entered CT scan No intracerebral hemorrhage or acute parenchymal lesion Mild cerebral and cerebellar involutions Signer Name: Mila Gaitan MD Signed: 11/27/2021 10:32 AM Workstation Name: [id number]
--- NOTE | 2021-11-27 11:22 | XRay Report ---
ABDOMEN 1 VIEW(S) 11/27/2021 10:09 AM INDICATION / CLINICAL INFORMATION: to check placement of Doboff feeding tube. COMPARISON: None available. FINDINGS: The tip of an esophagogastric tube projects over the distal stomach in the region of the antrum. Tip could also possibly be within the proximal duodenum. Signer Name: Good Garcia MD Signed: 11/27/2021 11:18 AM Workstation Name: [id number]
[2021-11-27] MEDS: VALSARTAN 160MG TAB PO SCH ×2 (12:04→23:03)
[2021-11-27] MEDS: SENNOSIDES 8.6 MG TAB PO SCH ×2 (12:05→22:55)
--- NOTE | 2021-11-27 13:18 | XRay Report ---
ABDOMEN 1 VIEW(S) 11/27/2021 12:08 PM INDICATION / CLINICAL INFORMATION: check the placement for doboff feeding tube. COMPARISON: Earlier same day FINDINGS: The tip of a weighted esophagogastric tube projects over the right upper quadrant of the abdomen, aga in likely within the proximal duodenum. Signer Name: Good Garcia MD Signed: 11/27/2021 1:14 PM Workstation Name: [id number]
[2021-11-27] MEDS: REMDESIVIR 100 MG in SODIUM CHLORIDE 0.9% 250ML 250 ML IV SCH (14:58)
--- NOTE | 2021-11-27 15:19 | Gastroenterology Progress Note ---
Assessment and Plan 1. Acute pancreatitis - suspect due to covid. liver enzymes normal and no biliary dilatation on imaging. still confused but mentation seems improved, recommend swallow study and see if pt can start po intake (intolerant to ng tube). Subjective Date of service: 11/27/21 Principal diagnosis: Pancreatitis Interval history: pt remains confused but did answer "yes" and "no" to some questions. pulled out ng tube a couple times per pt's nurse. Objective - Constitutional Vitals: Temp Pulse Resp BP Pulse Ox 98.3 F 87 20 176/78 91 11/27/21 11:15 11/27/21 11:15 11/27/21 11:15 11/27/21 11:15 11/27/21 11:15 General appearance: other (confused, nad) - Respiratory Respiratory effort: normal Respiratory: bilateral: CTA - Cardiovascular Rhythm: regular Heart Sounds: Present: S1 & S2 - Gastrointestinal General gastrointestinal: Present: soft, non-tender - Labs CBC & Chem 7: 11/27/21 05:32 11/27/21 05:32 Labs: Laboratory Results - last 24 hr 11/27/21 11/27/21 11/27/21 05:32 05:32 08:38 WBC 13.6 H RBC 4.25 Hgb 12.4 Hct 36.8 MCV 87 MCH 29 MCHC 34 RDW 13.2 Plt Count 297 Sodium 146 H D Potassium 2.5 L* Chloride 104.9 Carbon Dioxide 27 Anion Gap 17 BUN 11 Creatinine 0.7 Estimated GFR > 60 BUN/Creatinine Ratio 16 Glucose 193 H Calcium 9.4 Magnesium 1.70 Total Bilirubin 0.80 AST 16 ALT 13 Alkaline Phosphatase 79 Total Protein 6.8 Albumin 2.5 L Albumin/Globulin Ratio 0.6 Lipase 61 H - Imaging CT scan: report reviewed
[2021-11-27] MEDS: SODIUM CHLORIDE 0.9% 50 ML IVPB IV SCH (15:32)
[2021-11-27] MEDS ORDERED: POTASSIUM CHLORIDE 20 MEQ PACKET FEEDTUBE ONE (16:30)
[2021-11-28] MEDS: HEPARIN 5,000 UNIT/1 ML VIAL SUB-Q SCH ×3 (06:40→22:55)
[2021-11-28] MEDS: PIPERACIL/TAZOBACTA 4.5/NS 100 4.5 GM/100 ML VIAL IV SCH ×3 (06:40→22:54)
--- NOTE | 2021-11-28 07:37 | Progress Note ---
Assessment and Plan Assessment and plan: Patient is a 81-year-old female vaccinated according to the son per the ER physician who spoke to the son presents to the ED with complaints of abdominal pain. According to further information obtained by the satisfied of the ED physicians note shows that the patient has not had any fever nausea vomiting or diarrhea but has been complaining of abdominal pain for the past few weeks. The pain increases to palpitations she appears to be nonverbal. Per the documentation the pain was so strong that the patient sat down but did not have a fall or syncopal episode or head trauma. On arrival to the ED initial work-up was pointing more towards pancreatitis with mildly elevated lipase and also CT of the abdomen Suggested pancreatitis. Is unclear to be if the patient responded to verbal or language barrier. I am awaiting to speak with the son also. Patient does not demonstrate any solid or hypoxia. Ultrasound suggestive of cholecystitis. CT scan abdomen pelvis 1. Acute pancreatitis. 2. Moderate colonic diverticulosis 3. Multifocal bilateral groundglass parenchymal disease likely secondary to Covid pneumonia. 4. Gallbladder surgically absent. On the gallbladder ultrasound, the technologist mistakenly measured an adjacent loop of duodenum rather than the gallbladder itself No evidence of cholecystitis. Acute pancreatitis secondary to COVID-19 Status postcholecystectomy Acute metabolic encephalopathy present on admission Moderate colonic Diverticulosis Pneumonia possible COVID related COVID-19 Morbid obesity Hypokalemia Abdominal pain Leukocytosis ?Acute Cystitis likely contaminated collection due to high eosinophils. Will repeat if necessary. Delirium versus early dementia PLAN 11/26: This found on the pancreatitis could be secondary to her COVID 19. At this point we will continue aggressive IV hydration. I will patient is a little bit more rested we will obtain an MRCP to rule out any bile duct stones. GI and ID input appreciated. Per GI we will not feed at this time due to agitation. I also tried to call the son and left a message. We will replace potassium IV remdesivir for 3 days per infectious disease specialist 11/27: Patient continues with acute confusion. As a result we will obtain a head CT to rule out other pathology. Initially I thought that this was a communication issue of possible different language but today she is able to answer some simple questions but still confused. Blood pressure was elevated throughout the night but improved with IV as needed medication. But the son the patient does not take any medications at home and was not perfect good health. We will obtain neurology consultation for change in mental status. We will review CT when available and make further recommendations as a result. Patient will receive additional dose of remdesivir to complete a 3 days. She is not hypoxic so no indication for steroids will decrease fluids to 75 cc an hour and will stop once tube feed has been initiated to prevent fluid overload. Replace potassium check magnesium 11/28: Patient continues to improve with respect to acute pancreatitis felt to be secondary to COVID-19. Her liver enzymes has improved. While her mentation is improving she did pass a swallow evaluation has been started on clear liquid diet which was advanced to full liquid diet. She does have low potassium again with mildly low magnesium we will replace both and monitor for correction in a.m. I did discuss with the son who states that she was in normal health and that she is never had any confusion and he spoke to her the day before coming into the hospital. He denies knowledge of any history of hypertension. He states that 4 years ago she lived in [place] but he did relocate her here to keep a closer eye on her due to advanced age. I did provide counseling on need to have age- appropriate screening. He verbalized understanding. Once patient's mental status improved I believe he can she can be safely discharged as she is tolerating diet. IV FLUIDS PAIN CONTROL ABX Replace K ISOLATION FOR COVID MANAGEMENT Patient is not Hypoxic, will monitor clinically Cultures DVT/GI PROPHY Advance care directive discussed in detail for 30 mins. History Interval history: Patient seen and examined this morning while she remains confused she show some improvement able to answer some questions. She does however dislodged her NG tube. Hospitalist Physical - Physical exam Narrative exam: VITAL SIGNS: Reviewed. GENERAL: The patient appears normally developed, morbidly obese vital signs as documented. HEAD: No signs of head trauma. EYES: Pupils are equal. Extraocular motions intact. EARS: Hearing grossly intact. MOUTH: Oropharynx is normal. NECK: No adenopathy, no JVD. CHEST: Chest with clear breath sounds bilaterally. No wheezes, rales, or rhonchi. CARDIAC: Regular rate and rhythm. S1 and S2, without murmurs, gallops, or rubs. VASCULAR: No Edema. Peripheral pulses normal and equal in all extremities. ABDOMEN: Soft, non tender and non distended. No rebound or guarding, and no masses palpated. Bowel Sounds normal. MUSCULOSKELETAL: Good range of motion of all major joints. Extremities without clubbing, cyanosis or edema. NEUROLOGIC EXAM: Alert and oriented x 1 . No focal sensory or strength deficits. Dysphonia, follows some commands. PSYCHIATRIC: Mood normal. SKIN: detail exam as documented in skin assessment - Constitutional Vitals: Temp Pulse Resp BP Pulse Ox 98.6 F 88 20 162/85 87 11/28/21 06:30 11/28/21 06:30 11/28/21 06:30 11/28/21 06:30 11/28/21 06:30 HEART Score - HEART Score Troponin: Troponin T < 0.010 ng/mL (0.00-0.029) 11/25/21 04:29 Results - Labs CBC & Chem 7: 11/28/21 07:36 11/28/21 07:36 Labs: Laboratory Last Values WBC 13.6 K/mm3 (4.5-11.0) H 11/27/21 05:32 RBC 4.25 M/mm3 (3.65-5.03) 11/27/21 05:32 Hgb 12.4 gm/dl (10.1-14.3) 11/27/21 05:32 Hct 36.8 % (30.3-42.9) 11/27/21 05:32 MCV 87 fl (79-97) 11/27/21 05:32 MCH 29 pg (28-32) 11/27/21 05:32 MCHC 34 % (30-34) 11/27/21 05:32 RDW 13.2 % (13.2-15.2) 11/27/21 05:32 Plt Count 297 K/mm3 (140-440) 11/27/21 05:32 Lymph % (Auto) 6.5 % (13.4-35.0) L 11/26/21 05:49 Avery % (Auto) 7.9 % (0.0-7.3) H 11/26/21 05:49 Eos % (Auto) 0.0 % (0.0-4.3) 11/26/21 05:49 Baso % (Auto) 0.2 % (0.0-1.8) 11/26/21 05:49 Lymph # (Auto) 1.0 K/mm3 (1.2-5.4) L 11/26/21 05:49 Avery # (Auto) 1.2 K/mm3 (0.0-0.8) H 11/26/21 05:49 Eos # (Auto) 0.0 K/mm3 (0.0-0.4) 11/26/21 05:49 Baso # (Auto) 0.0 K/mm3 (0.0-0.1) 11/26/21 05:49 Add Manual Diff Complete 11/26/21 05:49 Total Counted 100 11/26/21 05:49 Seg Neutrophils % 85.4 % (40.0-70.0) H 11/26/21 05:49 Seg Neuts % (Manual) 89.0 % (40.0-70.0) H 11/26/21 05:49 Band Neutrophils % 0 % 11/26/21 05:49 Lymphocytes % (Manual) 2.0 % (13.4-35.0) L 11/26/21 05:49 Reactive Lymphs % (Man) 1.0 % 11/26/21 05:49 Monocytes % (Manual) 8.0 % (0.0-7.3) H 11/26/21 05:49 Eosinophils % (Manual) 0 % (0.0-4.3) 11/26/21 05:49 Basophils % (Manual) 0 % (0.0-1.8) 11/26/21 05:49 Metamyelocytes % 0 % 11/26/21 05:49 Myelocytes % 0 % 11/26/21 05:49 Promyelocytes % 0 % 11/26/21 05:49 Blast Cells % 0 % 11/26/21 05:49 Nucleated RBC % Not Reportable 11/26/21 05:49 Seg Neutrophils # 12.7 K/mm3 (1.8-7.7) H 11/26/21 05:49 Seg Neutrophils # Man 13.6 K/mm3 (1.8-7.7) H 11/26/21 05:49 Band Neutrophils # 0.0 K/mm3 11/26/21 05:49 Lymphocytes # (Manual) 0.3 K/mm3 (1.2-5.4) L 11/26/21 05:49 Abs React Lymphs (Man) 0.2 K/mm3 11/26/21 05:49 Monocytes # (Manual) 1.2 K/mm3 (0.0-0.8) H 11/26/21 05:49 Eosinophils # (Manual) 0.0 K/mm3 (0.0-0.4) 11/26/21 05:49 Basophils # (Manual) 0.0 K/mm3 (0.0-0.1) 11/26/21 05:49 Metamyelocytes # 0.0 K/mm3 11/26/21 05:49 Myelocytes # 0.0 K/mm3 11/26/21 05:49 Promyelocytes # 0.0 K/mm3 11/26/21 05:49 Blast Cells # 0.0 K/mm3 11/26/21 05:49 WBC Morphology Not Reportable 11/26/21 05:49 Hypersegmented Neuts Not Reportable 11/26/21 05:49 Hyposegmented Neuts Not Reportable 11/26/21 05:49 Hypogranular Neuts Not Reportable 11/26/21 05:49 Smudge Cells Not Reportable 11/26/21 05:49 Toxic Granulation Not Reportable 11/26/21 05:49 Toxic Vacuolation Not Reportable 11/26/21 05:49 Dohle Bodies Not Reportable 11/26/21 05:49 Pelger-Huet Anomaly Not Reportable 11/26/21 05:49 Jesse Rods Not Reportable 11/26/21 05:49 Platelet Estimate Consistent w auto 11/26/21 05:49 Clumped Platelets Not Reportable 11/26/21 05:49 Plt Clumps, EDTA Not Reportable 11/26/21 05:49 Large Platelets Rare 11/26/21 05:49 Giant Platelets Not Reportable 11/26/21 05:49 Platelet Satelliting Not Reportable 11/26/21 05:49 Plt Morphology Comment Not Reportable 11/26/21 05:49 RBC Morphology Normal 11/26/21 05:49 Dimorphic RBCs Not Reportable 11/26/21 05:49 Polychromasia Not Reportable 11/26/21 05:49 Hypochromasia Not Reportable 11/26/21 05:49 Poikilocytosis Not Reportable 11/26/21 05:49 Anisocytosis Not Reportable 11/26/21 05:49 Microcytosis Not Reportable 11/26/21 05:49 Macrocytosis Not Reportable 11/26/21 05:49 Spherocytes Not Reportable 11/26/21 05:49 Pappenheimer Bodies Not Reportable 11/26/21 05:49 Sickle Cells Not Reportable 11/26/21 05:49 Target Cells Not Reportable 11/26/21 05:49 Tear Drop Cells Not Reportable 11/26/21 05:49 Ovalocytes Not Reportable 11/26/21 05:49 Helmet Cells Not Reportable 11/26/21 05:49 Arreguin-Manter Bodies Not Reportable 11/26/21 05:49 [place] Rings Not Reportable 11/26/21 05:49 Kelsy Cells Not Reportable 11/26/21 05:49 Bite Cells Not Reportable 11/26/21 05:49 Crenated Cell Not Reportable 11/26/21 05:49 Elliptocytes Not Reportable 11/26/21 05:49 Acanthocytes (Spur) Not Reportable 11/26/21 05:49 Rouleaux Not Reportable 11/26/21 05:49 Hemoglobin C Crystals Not Reportable 11/26/21 05:49 Schistocytes Not Reportable 11/26/21 05:49 Malaria parasites Not Reportable 11/26/21 05:49 Papito Bodies Not Reportable 11/26/21 05:49 Hem Pathologist Commnt No 11/26/21 05:49 Sodium 146 mmol/L (137-145) H D 11/27/21 05:32 Potassium 2.5 mmol/L (3.6-5.0) L* 11/27/21 05:32 Chloride 104.9 mmol/L (98-107) 11/27/21 05:32 Carbon Dioxide 27 mmol/L (22-30) 11/27/21 05:32 Anion Gap 17 mmol/L 11/27/21 05:32 BUN 11 mg/dL (7-17) 11/27/21 05:32 Creatinine 0.7 mg/dL (0.6-1.2) 11/27/21 05:32 Estimated GFR > 60 ml/min 11/27/21 05:32 BUN/Creatinine Ratio 16 % 11/27/21 05:32 Glucose 193 mg/dL (65-100) H 11/27/21 05:32 Calcium 9.4 mg/dL (8.4-10.2) 11/27/21 05:32 Magnesium 1.70 mg/dL (1.7-2.3) 11/27/21 08:38 Total Bilirubin 0.80 mg/dL (0.1-1.2) 11/27/21 05:32 AST 16 units/L (5-40) 11/27/21 05:32 ALT 13 units/L (7-56) 11/27/21 05:32 Alkaline Phosphatase 79 units/L (35-129) 11/27/21 05:32 Total Creatine Kinase 117 units/L (30-135) 11/25/21 04:29 Troponin T < 0.010 ng/mL (0.00-0.029) 11/25/21 04:29 Total Protein 6.8 g/dL (6.3-8.2) 11/27/21 05:32 Albumin 2.5 g/dL (3.9-5) L 11/27/21 05:32 Albumin/Globulin Ratio 0.6 % 11/27/21 05:32 Amylase 249 units/L (27-131) H 11/25/21 03:15 Lipase 61 units/L (13-60) H 11/27/21 05:32 Procalcitonin 0.11 ng/mL (<0.15) 11/25/21 09:30 Urine Color Yellow (Yellow) 11/25/21 06:13 Urine Turbidity Clear (Clear) 11/25/21 06:13 Urine pH 5.0 (5.0-7.0) 11/25/21 06:13 Ur Specific [place] 1.010 (1.003-1.030) 11/25/21 06:13 Urine Protein 30 mg/dl mg/dL (Negative) 11/25/21 06:13 Urine Glucose (UA) Negative mg/dL (Negative) 11/25/21 06:13 Urine Ketones Trace mg/dL (Negative) 11/25/21 06:13 Urine Blood Trace (Negative) 11/25/21 06:13 Urine Nitrite Negative (Negative) 11/25/21 06:13 Urine Bilirubin Negative (Negative) 11/25/21 06:13 Urine Urobilinogen 4.0 mg/dL (<2.0) 11/25/21 06:13 Ur Leukocyte Esterase Trace (Negative) 11/25/21 06:13 Urine WBC (Auto) 23.0 /HPF (0.0-6.0) H 11/25/21 06:13 Urine RBC (Auto) 181.0 /HPF (0.0-6.0) 11/25/21 06:13 U Epithel Cells (Auto) 54.0 /HPF (0-13.0) H 11/25/21 06:13 Hyaline Casts 451 /LPF 11/25/21 06:13 Waxy Casts 83 /LPF 11/25/21 06:13 Urine Mucus 3+ /HPF 11/25/21 06:13 SARS-CoV-2 (PCR) Positive (Negative) A 11/25/21 09:45 Microbiology: Microbiology 11/25/21 06:13 Urine,Clean Catch Urine Culture - Final 11/25/21 05:51 Peripheral/Venous Blood Culture - Preliminary NO GROWTH AFTER 48 HOURS 11/25/21 05:58 Peripheral/Venous Blood Culture - Preliminary NO GROWTH AFTER 48 HOURS Bean/IV: Voiding Method Incontinent Active Medications - Current Medications Current Medications: Generic Name Dose Route Start Last Admin Trade Name Freq PRN Reason Stop Dose Admin Acetaminophen 650 mg 11/25/21 09:00 Acetaminophen 325 Mg Tab PO Q4H PRN Pain MILD(1-3)/Fever >100.5/TRIPLETT Albuterol 2.5 mg 11/25/21 09:00 Albuterol 2.5 Mg/3 Ml Nebu IH Q4HRT PRN Shortness Of Breath Heparin Sodium (Porcine) 5,000 unit 11/25/21 14:00 11/28/21 06:40 Heparin 5,000 Unit/1 Ml Vial SUB-Q 5,000 unit Q8HR ELIESER Administration Hydralazine HCl 10 mg 11/25/21 09:51 11/27/21 15:51 Hydralazine 20 Mg/1 Ml Inj IV 10 mg Q4HR PRN Administration Hypertension Dextrose/Sodium Chloride 1,000 mls @ 75 mls/hr 11/25/21 09:00 11/27/21 15:32 D5ns IV 75 mls/hr DIRECT ELIESER Administration Piperacillin Sod/Tazobactam Sod 4.5 gm in 100 mls @ 200 mls/hr 11/25/21 09:00 11/28/21 06:40 Zosyn/Ns 4.5gm/100ml IV 200 mls/hr Q8HR ELIESER Administration Protocol Lorazepam 1 mg 06/09/22 20:01 11/27/21 08:59 Lorazepam 2 Mg/Ml Vial IV 1 mg Q6H PRN Administration Agitation Morphine Sulfate 1 mg 11/26/21 15:14 11/26/21 16:22 Morphine 2 Mg/1 Ml Inj IV 1 mg Q4H PRN Administration Pain, Moderate (4-6) Naloxone HCl 0.1 mg 11/25/21 09:00 Naloxone 0.4 Mg/1 Ml Inj IV Q2MIN PRN Res Rate </= 8 or 02 SAT < 92% Ondansetron HCl 4 mg 11/25/21 09:00 Ondansetron 4 Mg/2 Ml Inj IV Q4H PRN Nausea And Vomiting Pantoprazole Sodium 40 mg 11/27/21 10:00 11/27/21 08:59 Pantoprazole 40 Mg Inj IV 40 mg QDAY ELIESER Administration Senna 8.6 mg 11/25/21 10:00 11/27/21 22:55 Sennosides 8.6 Mg Tab PO 8.6 mg Q12HR ELIESER Administration Sodium Chloride 10 ml 11/25/21 10:00 11/27/21 22:40 Sodium Chloride 0.9% 10 Ml Flush Syringe IV 10 ml BID ELIESER Administration Sodium Chloride 10 ml 11/25/21 08:50 Sodium Chloride 0.9% 10 Ml Flush Syringe IV PRN PRN LINE FLUSH Valsartan 160 mg 11/27/21 10:00 11/27/21 23:03 Valsartan 160mg Tab PO 160 mg BID ELIESER Administration Nutrition/Malnutrition Assess - Dietary Evaluation Nutrition/Malnutrition Findings: Nutrition Notes Start: 11/27/21 12:05 Freq: Status: Active Protocol: Document 11/27/21 12:05 CARLITO (Rec: 11/27/21 12:13 [facility] [id number]) Nutrition Notes Need for Assessment generated from: MD Order,credit review manager,MST Initial or Follow up Assessment Other Pertinent Diagnosis Acute pancreatitis, COVID-19 pneu, abdominal pain Current Diet NPO Labs/Tests Na 146 K 2.5 BG 193 Lipase 61 Pertinent Medications D5NS at 75ml/hr, 20mEq KCl x 1 dose Height 5 ft 8 in Weight 78.3 kg [place] Body Weight (kg) 63.63 BMI 26.2 Weight Status Appropriate Subjective/Other Information RD consulted for TF. Pt also screened for malnutrition and skin risks (Manish score:15). Burn Absent Trauma Absent Minimum of two criteria No #1 Nutrition Diagnosis Inadequate oral intake Etiology pancreatitis, COVID-19 As Evidenced by Signs and Symptoms pt NPO Is patient on ventilator? No Is Patient Ambulatory and/or Out of Bed No REE-([facility]-confined to bed) 1562.640 Calculation Used for Recommendations [facility] Additional Notes Pro needs 1-1.2g/k-94g/ day Fluid needs 1ml/kcal Nutrition Intervention Nutrition Support: Vital AF 1.2 at 50ml/hr with 75ml water flush q4h. Kcal 1,440 Protein (gm) 90 Carbohydrates (gm) 133 Fat (gm) 65 Fluid (mL) 973 Fiber (gm) 6 Goal #1 TF tolerance Goal #2 TF to meet at least 75% energy and pro needs Anticipated Discharge Needs: Unable to identify at this time Follow-Up By: 11/29/21 Additional Comments F/U: new TF
[2021-11-28 08:12] LABS: Hematocrit 40.4 % (30.3-42.9); Hemoglobin 12.9 gm/dl (10.1-14.3); Mean Corpuscular HGB Conc 32 % (30-34); Mean Corpuscular Volume 88 fl (79-97); Platelet Count 296 K/mm3 (140-440); Red Blood Count 4.58 M/mm3 (3.65-5.03); Red Cell Distribution Width 13.3 % (13.2-15.2)
[2021-11-28 08:27] LABS: Alanine Aminotransferase 15 units/L (7-56); Albumin 2.7 g/dL (3.9-5); Blood Urea Nitrogen 12 mg/dL (7-17); Calcium 9.3 mg/dL (8.4-10.2); Hemolysis Index 7
[2021-11-28 08:47] LABS: BUN/Creatinine Ratio 20
--- NOTE | 2021-11-28 10:14 | Gastroenterology Progress Note ---
Assessment and Plan 1. Acute pancreatitis - clinically seems to be improving from dietary stand point as tolerating clears without obvious signs of n/v/abd pain. suspect AP due to covid. liver enzymes normal and no biliary dilatation on imaging. remains altered/confused, further management per primary regarding this, okay to advance diet as tolerated from gi stand point. Subjective Date of service: 11/28/21 Principal diagnosis: Pancreatitis Interval history: pt in restraints, remains confused, passed bedside swallow study and tolerating clears. Objective - Constitutional Vitals: Temp Pulse Resp BP Pulse Ox 98.6 F 88 20 162/85 87 11/28/21 06:30 11/28/21 06:30 11/28/21 06:30 11/28/21 06:30 11/28/21 06:30 General appearance: no acute distress, other (confused, in restraints) - Respiratory Respiratory effort: normal Respiratory: bilateral: CTA - Cardiovascular Rhythm: regular Heart Sounds: Present: S1 & S2 - Gastrointestinal General gastrointestinal: Present: soft, non-tender - Neurologic Neurological: disoriented - Labs CBC & Chem 7: 11/28/21 07:36 11/28/21 07:36 Labs: Laboratory Results - last 24 hr 11/28/21 11/28/21 07:36 07:36 WBC 10.9 RBC 4.58 Hgb 12.9 Hct 40.4 MCV 88 MCH 28 MCHC 32 RDW 13.3 Plt Count 296 Sodium 144 Potassium 2.4 L* Chloride 104.0 Carbon Dioxide 27 Anion Gap 15 BUN 12 Creatinine 0.6 Estimated GFR > 60 BUN/Creatinine Ratio 20 Glucose 166 H Calcium 9.3 Total Bilirubin 0.80 AST 14 ALT 15 Alkaline Phosphatase 83 Total Protein 7.5 Albumin 2.7 L Albumin/Globulin Ratio 0.6
[2021-11-28] MEDS ORDERED: HALOPERIDOL LACTATE 5 MG/1 ML INJ IM PRN (11:00)
[2021-11-28] MEDS ORDERED: MAGNESIUM SULFATE 1 GM in SODIUM CHLORIDE 0.9% 50 ML IV ONE (11:00)
[2021-11-28] MEDS ORDERED: POTASSIUM CHLORIDE 20 MEQ PACKET PO ONE (11:00)
[2021-11-28] MEDS: SENNOSIDES 8.6 MG TAB PO SCH ×2 (11:12→22:55)
[2021-11-28] MEDS: VALSARTAN 160MG TAB PO SCH ×2 (11:12→22:57)
[2021-11-28] MEDS: PANTOPRAZOLE 40 MG INJ IV SCH (11:12)
[2021-11-28] MEDS: MORPHINE 2 MG/1 ML INJ IV PRN ×2 (14:19→23:26)
[2021-11-29] MEDS: HEPARIN 5,000 UNIT/1 ML VIAL SUB-Q SCH ×3 (05:40→22:05)
[2021-11-29] MEDS: PIPERACIL/TAZOBACTA 4.5/NS 100 4.5 GM/100 ML VIAL IV SCH (05:40)
[2021-11-29 07:01] LABS: Hematocrit 37.1 % (30.3-42.9); Hemoglobin 12.4 gm/dl (10.1-14.3); Mean Corpuscular HGB Conc 33 % (30-34); Mean Corpuscular Volume 87 fl (79-97); Platelet Count 279 K/mm3 (140-440); Red Blood Count 4.28 M/mm3 (3.65-5.03); Red Cell Distribution Width 13.7 % (13.2-15.2)
[2021-11-29 07:22] LABS: Alanine Aminotransferase 16 units/L (7-56); Albumin 2.6 g/dL (3.9-5); Blood Urea Nitrogen 11 mg/dL (7-17); Calcium 9.1 mg/dL (8.4-10.2); Hemolysis Index 5
[2021-11-29 07:33] LABS: BUN/Creatinine Ratio 16
[2021-11-29] MEDS ORDERED: POTASSIUM CHLORIDE 20 MEQ PACKET PO NR (09:00)
--- NOTE | 2021-11-29 09:44 | Progress Note ---
Assessment and Plan Assessment and plan: Patient is a 81-year-old female vaccinated according to the son per the ER physician who spoke to the son presents to the ED with complaints of abdominal pain. According to further information obtained by the satisfied of the ED physicians note shows that the patient has not had any fever nausea vomiting or diarrhea but has been complaining of abdominal pain for the past few weeks. The pain increases to palpitations she appears to be nonverbal. Per the documentation the pain was so strong that the patient sat down but did not have a fall or syncopal episode or head trauma. On arrival to the ED initial work-up was pointing more towards pancreatitis with mildly elevated lipase and also CT of the abdomen Suggested pancreatitis. Is unclear to be if the patient responded to verbal or language barrier. I am awaiting to speak with the son also. Patient does not demonstrate any solid or hypoxia. Ultrasound suggestive of cholecystitis. CT scan abdomen pelvis 1. Acute pancreatitis. 2. Moderate colonic diverticulosis 3. Multifocal bilateral groundglass parenchymal disease likely secondary to Covid pneumonia. 4. Gallbladder surgically absent. On the gallbladder ultrasound, the technologist mistakenly measured an adjacent loop of duodenum rather than the gallbladder itself No evidence of cholecystitis. Acute pancreatitis secondary to COVID-19 Status postcholecystectomy Acute metabolic encephalopathy present on admission Moderate colonic Diverticulosis Pneumonia possible COVID related COVID-19 Morbid obesity Hypokalemia Abdominal pain Leukocytosis ?Acute Cystitis likely contaminated collection due to high eosinophils. Will repeat if necessary. Delirium versus early dementia Moderate protein calorie malnutrition PLAN 11/26: This found on the pancreatitis could be secondary to her COVID 19. At this point we will continue aggressive IV hydration. I will patient is a little bit more rested we will obtain an MRCP to rule out any bile duct stones. GI and ID input appreciated. Per GI we will not feed at this time due to agitation. I also tried to call the son and left a message. We will replace potassium IV remdesivir for 3 days per infectious disease specialist 11/27: Patient continues with acute confusion. As a result we will obtain a head CT to rule out other pathology. Initially I thought that this was a communication issue of possible different language but today she is able to answer some simple questions but still confused. Blood pressure was elevated throughout the night but improved with IV as needed medication. But the son the patient does not take any medications at home and was not perfect good health. We will obtain neurology consultation for change in mental status. We will review CT when available and make further recommendations as a result. Patient will receive additional dose of remdesivir to complete a 3 days. She is not hypoxic so no indication for steroids will decrease fluids to 75 cc an hour and will stop once tube feed has been initiated to prevent fluid overload. Replace potassium check magnesium 11/28: Patient continues to improve with respect to acute pancreatitis felt to be secondary to COVID-19. Her liver enzymes has improved. While her mentation is improving she did pass a swallow evaluation has been started on clear liquid diet which was advanced to full liquid diet. She does have low potassium again with mildly low magnesium we will replace both and monitor for correction in a.m. I did discuss with the son who states that she was in normal health and that she is never had any confusion and he spoke to her the day before coming into the hospital. He denies knowledge of any history of hypertension. He states that 4 years ago she lived in [place] but he did relocate her here to keep a closer eye on her due to advanced age. I did provide counseling on need to have age- appropriate screening. He verbalized understanding. Once patient's mental status improved I believe he can she can be safely discharged as she is tolerating diet. 11/29: Patient seen and examined today, remains clinically improving, she is tolerating oral diet, remains impulsive and as result has been on restraints. She is on COVID precautions and has completed Remdesivir. Awaiting Neurology evaluation as again family states patient was healthy without any issues. I have also educated them about her elevated Blood pressure and she will likely need BP meds on discharge. We will obtain PT OT evaluation and if no contraindication from neurology will begin working on discharge either to a SNF or to home with home health and she will need sitter at home until her mental status is improved. Encephalopathy could also be related to COVID just as the pancreatitis is believed to be relate d to COVID. She was treated with antibiotics for presumed UTI although this was discontinued shortly after. She remains with persistent hypokalemia which has been replaced She is unvaccinated. My discussion with the family shows that they are against vaccination. ISOLATION FOR COVID MANAGEMENT Cultures DVT/GI PROPHY Advance care directive discussed in detail for 30 mins. History Interval history: Patient seen and examined this morning while she remains confused she show some improvement able to answer some questions. She was able to tell me with the president is and that she is also in the hospital, she remains impulse and as result remains on restraints. she is tolerating oral diet. Hospitalist Physical - Physical exam Narrative exam: VITAL SIGNS: Reviewed. GENERAL: The patient appears normally developed, morbidly obese vital signs as documented. HEAD: No signs of head trauma. EYES: Pupils are equal. Extraocular motions intact. EARS: Hearing grossly intact. MOUTH: Oropharynx is normal. NECK: No adenopathy, no JVD. CHEST: Chest with clear breath sounds bilaterally. No wheezes, rales, or rhonchi. CARDIAC: Regular rate and rhythm. S1 and S2, without murmurs, gallops, or rubs. VASCULAR: No Edema. Peripheral pulses normal and equal in all extremities. ABDOMEN: Soft, non tender and non distended. No rebound or guarding, and no masses palpated. Bowel Sounds normal. MUSCULOSKELETAL: Good range of motion of all major joints. Extremities without clubbing, cyanosis or edema. NEUROLOGIC EXAM: Alert and oriented x 2 . No focal sensory or strength deficits. Dysphonia, follows some commands. PSYCHIATRIC: Mood normal. SKIN: detail exam as documented in skin assessment - Constitutional Vitals: Temp Pulse Resp BP Pulse Ox 98.4 F 80 14 153/65 96 11/29/21 05:00 11/29/21 05:00 11/29/21 08:00 11/29/21 05:00 11/29/21 08:00 HEART Score - HEART Score Troponin: Troponin T < 0.010 ng/mL (0.00-0.029) 11/25/21 04:29 Results - Labs CBC & Chem 7: 11/29/21 06:53 11/29/21 06:53 Labs: Laboratory Last Values WBC 10.5 K/mm3 (4.5-11.0) 11/29/21 06:53 RBC 4.28 M/mm3 (3.65-5.03) 11/29/21 06:53 Hgb 12.4 gm/dl (10.1-14.3) 11/29/21 06:53 Hct 37.1 % (30.3-42.9) 11/29/21 06:53 MCV 87 fl (79-97) 11/29/21 06:53 MCH 29 pg (28-32) 11/29/21 06:53 MCHC 33 % (30-34) 11/29/21 06:53 RDW 13.7 % (13.2-15.2) 11/29/21 06:53 Plt Count 279 K/mm3 (140-440) 11/29/21 06:53 Lymph % (Auto) 6.5 % (13.4-35.0) L 11/26/21 05:49 Sebastian % (Auto) 7.9 % (0.0-7.3) H 11/26/21 05:49 Eos % (Auto) 0.0 % (0.0-4.3) 11/26/21 05:49 Baso % (Auto) 0.2 % (0.0-1.8) 11/26/21 05:49 Lymph # (Auto) 1.0 K/mm3 (1.2-5.4) L 11/26/21 05:49 Sebastian # (Auto) 1.2 K/mm3 (0.0-0.8) H 11/26/21 05:49 Eos # (Auto) 0.0 K/mm3 (0.0-0.4) 11/26/21 05:49 Baso # (Auto) 0.0 K/mm3 (0.0-0.1) 11/26/21 05:49 Add Manual Diff Complete 11/26/21 05:49 Total Counted 100 11/26/21 05:49 Seg Neutrophils % 85.4 % (40.0-70.0) H 11/26/21 05:49 Seg Neuts % (Manual) 89.0 % (40.0-70.0) H 11/26/21 05:49 Band Neutrophils % 0 % 11/26/21 05:49 Lymphocytes % (Manual) 2.0 % (13.4-35.0) L 11/26/21 05:49 Reactive Lymphs % (Man) 1.0 % 11/26/21 05:49 Monocytes % (Manual) 8.0 % (0.0-7.3) H 11/26/21 05:49 Eosinophils % (Manual) 0 % (0.0-4.3) 11/26/21 05:49 Basophils % (Manual) 0 % (0.0-1.8) 11/26/21 05:49 Metamyelocytes % 0 % 11/26/21 05:49 Myelocytes % 0 % 11/26/21 05:49 Promyelocytes % 0 % 11/26/21 05:49 Blast Cells % 0 % 11/26/21 05:49 Nucleated RBC % Not Reportable 11/26/21 05:49 Seg Neutrophils # 12.7 K/mm3 (1.8-7.7) H 11/26/21 05:49 Seg Neutrophils # Man 13.6 K/mm3 (1.8-7.7) H 11/26/21 05:49 Band Neutrophils # 0.0 K/mm3 11/26/21 05:49 Lymphocytes # (Manual) 0.3 K/mm3 (1.2-5.4) L 11/26/21 05:49 Abs React Lymphs (Man) 0.2 K/mm3 11/26/21 05:49 Monocytes # (Manual) 1.2 K/mm3 (0.0-0.8) H 11/26/21 05:49 Eosinophils # (Manual) 0.0 K/mm3 (0.0-0.4) 11/26/21 05:49 Basophils # (Manual) 0.0 K/mm3 (0.0-0.1) 11/26/21 05:49 Metamyelocytes # 0.0 K/mm3 11/26/21 05:49 Myelocytes # 0.0 K/mm3 11/26/21 05:49 Promyelocytes # 0.0 K/mm3 11/26/21 05:49 Blast Cells # 0.0 K/mm3 11/26/21 05:49 WBC Morphology Not Reportable 11/26/21 05:49 Hypersegmented Neuts Not Reportable 11/26/21 05:49 Hyposegmented Neuts Not Reportable 11/26/21 05:49 Hypogranular Neuts Not Reportable 11/26/21 05:49 Smudge Cells Not Reportable 11/26/21 05:49 Toxic Granulation Not Reportable 11/26/21 05:49 Toxic Vacuolation Not Reportable 11/26/21 05:49 Dohle Bodies Not Reportable 11/26/21 05:49 Pelger-Huet Anomaly Not Reportable 11/26/21 05:49 Jesse Rods Not Reportable 11/26/21 05:49 Platelet Estimate Consistent w auto 11/26/21 05:49 Clumped Platelets Not Reportable 11/26/21 05:49 Plt Clumps, EDTA Not Reportable 11/26/21 05:49 Large Platelets Rare 11/26/21 05:49 Giant Platelets Not Reportable 11/26/21 05:49 Platelet Satelliting Not Reportable 11/26/21 05:49 Plt Morphology Comment Not Reportable 11/26/21 05:49 RBC Morphology Normal 11/26/21 05:49 Dimorphic RBCs Not Reportable 11/26/21 05:49 Polychromasia Not Reportable 11/26/21 05:49 Hypochromasia Not Reportable 11/26/21 05:49 Poikilocytosis Not Reportable 11/26/21 05:49 Anisocytosis Not Reportable 11/26/21 05:49 Microcytosis Not Reportable 11/26/21 05:49 Macrocytosis Not Reportable 11/26/21 05:49 Spherocytes Not Reportable 11/26/21 05:49 Pappenheimer Bodies Not Reportable 11/26/21 05:49 Sickle Cells Not Reportable 11/26/21 05:49 Target Cells Not Reportable 11/26/21 05:49 Tear Drop Cells Not Reportable 11/26/21 05:49 Ovalocytes Not Reportable 11/26/21 05:49 Helmet Cells Not Reportable 11/26/21 05:49 [place] Bodies Not Reportable 11/26/21 05:49 Edna Rings Not Reportable 11/26/21 05:49 [place] Cells Not Reportable 11/26/21 05:49 Bite Cells Not Reportable 11/26/21 05:49 Crenated Cell Not Reportable 11/26/21 05:49 Elliptocytes Not Reportable 11/26/21 05:49 Acanthocytes (Spur) Not Reportable 11/26/21 05:49 Rouleaux Not Reportable 11/26/21 05:49 Hemoglobin C Crystals Not Reportable 11/26/21 05:49 Schistocytes Not Reportable 11/26/21 05:49 Malaria parasites Not Reportable 11/26/21 05:49 Papito Bodies Not Reportable 11/26/21 05:49 Hem Pathologist Commnt No 11/26/21 05:49 Sodium 143 mmol/L (137-145) 11/29/21 06:53 Potassium 3.2 mmol/L (3.6-5.0) L D 11/29/21 06:53 Chloride 103.3 mmol/L (98-107) 11/29/21 06:53 Carbon Dioxide 29 mmol/L (22-30) 11/29/21 06:53 Anion Gap 14 mmol/L 11/29/21 06:53 BUN 11 mg/dL (7-17) 11/29/21 06:53 Creatinine 0.7 mg/dL (0.6-1.2) 11/29/21 06:53 Estimated GFR > 60 ml/min 11/29/21 06:53 BUN/Creatinine Ratio 16 % 11/29/21 06:53 Glucose 175 mg/dL (65-100) H 11/29/21 06:53 Calcium 9.1 mg/dL (8.4-10.2) 11/29/21 06:53 Magnesium 1.70 mg/dL (1.7-2.3) 11/27/21 08:38 Total Bilirubin 0.60 mg/dL (0.1-1.2) 11/29/21 06:53 AST 18 units/L (5-40) 11/29/21 06:53 ALT 16 units/L (7-56) 11/29/21 06:53 Alkaline Phosphatase 85 units/L (35-129) 11/29/21 06:53 Total Creatine Kinase 117 units/L (30-135) 11/25/21 04:29 Troponin T < 0.010 ng/mL (0.00-0.029) 11/25/21 04:29 Total Protein 7.0 g/dL (6.3-8.2) 11/29/21 06:53 Albumin 2.6 g/dL (3.9-5) L 11/29/21 06:53 Albumin/Globulin Ratio 0.6 % 11/29/21 06:53 Amylase 249 units/L (27-131) H 11/25/21 03:15 Lipase 61 units/L (13-60) H 11/27/21 05:32 Procalcitonin 0.11 ng/mL (<0.15) 11/25/21 09:30 Urine Color Yellow (Yellow) 11/25/21 06:13 Urine Turbidity Clear (Clear) 11/25/21 06:13 Urine pH 5.0 (5.0-7.0) 11/25/21 06:13 Ur Specific [place] 1.010 (1.003-1.030) 11/25/21 06:13 Urine Protein 30 mg/dl mg/dL (Negative) 11/25/21 06:13 Urine Glucose (UA) Negative mg/dL (Negative) 11/25/21 06:13 Urine Ketones Trace mg/dL (Negative) 11/25/21 06:13 Urine Blood Trace (Negative) 11/25/21 06:13 Urine Nitrite Negative (Negative) 11/25/21 06:13 Urine Bilirubin Negative (Negative) 11/25/21 06:13 Urine Urobilinogen 4.0 mg/dL (<2.0) 11/25/21 06:13 Ur Leukocyte Esterase Trace (Negative) 11/25/21 06:13 Urine WBC (Auto) 23.0 /HPF (0.0-6.0) H 11/25/21 06:13 Urine RBC (Auto) 181.0 /HPF (0.0-6.0) 11/25/21 06:13 U Epithel Cells (Auto) 54.0 /HPF (0-13.0) H 11/25/21 06:13 Hyaline Casts 451 /LPF 11/25/21 06:13 Waxy Casts 83 /LPF 11/25/21 06:13 Urine Mucus 3+ /HPF 11/25/21 06:13 SARS-CoV-2 (PCR) Positive (Negative) A 11/25/21 09:45 Microbiology: Microbiology 11/25/21 05:51 Peripheral/Venous Blood Culture - Preliminary NO GROWTH AFTER 72 HOURS 11/25/21 05:58 Peripheral/Venous Blood Culture - Preliminary NO GROWTH AFTER 72 HOURS Bean/IV: Voiding Method Incontinent Active Medications - Current Medications Current Medications: Generic Name Dose Route Start Last Admin Trade Name Freq PRN Reason Stop Dose Admin Acetaminophen 650 mg 11/25/21 09:00 Acetaminophen 325 Mg Tab PO Q4H PRN Pain MILD(1-3)/Fever >100.5/TRIPLETT Albuterol 2.5 mg 11/25/21 09:00 Albuterol 2.5 Mg/3 Ml Nebu IH Q4HRT PRN Shortness Of Breath Haloperidol Lactate 5 mg 11/28/21 11:00 Haloperidol Lactate 5 Mg/1 Ml Inj IM Q6H PRN Agitation Heparin Sodium (Porcine) 5,000 unit 11/25/21 14:00 11/29/21 05:40 Heparin 5,000 Unit/1 Ml Vial SUB-Q 5,000 unit Q8HR ELIESER Administration Hydralazine HCl 10 mg 11/25/21 09:51 11/27/21 15:51 Hydralazine 20 Mg/1 Ml Inj IV 10 mg Q4HR PRN Administration Hypertension Morphine Sulfate 1 mg 11/26/21 15:14 11/28/21 23:26 Morphine 2 Mg/1 Ml Inj IV 1 mg Q4H PRN Administration Pain, Moderate (4-6) Naloxone HCl 0.1 mg 11/25/21 09:00 Naloxone 0.4 Mg/1 Ml Inj IV Q2MIN PRN Res Rate </= 8 or 02 SAT < 92% Ondansetron HCl 4 mg 11/25/21 09:00 Ondansetron 4 Mg/2 Ml Inj IV Q4H PRN Nausea And Vomiting Pantoprazole Sodium 40 mg 11/29/21 09:00 Pantoprazole 40 Mg Tab PO QDAC ELIESER Potassium Chloride 40 meq 11/29/21 09:00 Potassium Chloride 20 Meq Packet PO 11/29/21 12:00 ONCE@0900 NR Senna 8.6 mg 11/25/21 10:00 11/28/21 22:55 Sennosides 8.6 Mg Tab PO 8.6 mg Q12HR ELIESER Administration Sodium Chloride 10 ml 11/25/21 10:00 11/28/21 22:56 Sodium Chloride 0.9% 10 Ml Flush Syringe IV 10 ml BID ELIESER Administration Sodium Chloride 10 ml 11/25/21 08:50 Sodium Chloride 0.9% 10 Ml Flush Syringe IV PRN PRN LINE FLUSH Valsartan 160 mg 11/27/21 10:00 11/28/21 22:57 Valsartan 160mg Tab PO 160 mg BID ELIESER Administration Nutrition/Malnutrition Assess - Dietary Evaluation Nutrition/Malnutrition Findings: Nutrition Notes Start: 11/27/21 12:05 Freq: Status: Active Protocol: Document 11/27/21 12:05 CARLITO (Rec: 11/27/21 12:13 CARLITO [id number]) Nutrition Notes Need for Assessment generated from: MD Order,staff accountant,MST Initial or Follow up Assessment Other Pertinent Diagnosis Acute pancreatitis, COVID-19 pneu, abdominal pain Current Diet NPO Labs/Tests Na 146 K 2.5 BG 193 Lipase 61 Pertinent Medications D5NS at 75ml/hr, 20mEq KCl x 1 dose Height 5 ft 8 in Weight 78.3 kg [place] Body Weight (kg) 63.63 BMI 26.2 Weight Status Appropriate Subjective/Other Information RD consulted for TF. Pt also screened for malnutrition and skin risks (Manish score:15). Burn Absent Trauma Absent Minimum of two criteria No #1 Nutrition Diagnosis Inadequate oral intake Etiology pancreatitis, COVID-19 As Evidenced by Signs and Symptoms pt NPO Is patient on ventilator? No Is Patient Ambulatory and/or Out of Bed No REE-([facility]-confined to bed) 1562.640 Calculation Used for Recommendations [facility] Additional Notes Pro needs 1-1.2g/k-94g/ day Fluid needs 1ml/kcal Nutrition Intervention Nutrition Support: Vital AF 1.2 at 50ml/hr with 75ml water flush q4h. Kcal 1,440 Protein (gm) 90 Carbohydrates (gm) 133 Fat (gm) 65 Fluid (mL) 973 Fiber (gm) 6 Goal #1 TF tolerance Goal #2 TF to meet at least 75% energy and pro needs Anticipated Discharge Needs: Unable to identify at this time Follow-Up By: 11/29/21 Additional Comments F/U: new TF
[2021-11-29] MEDS: SENNOSIDES 8.6 MG TAB PO SCH ×3 (10:55→22:07)
[2021-11-29] MEDS: VALSARTAN 160MG TAB PO SCH ×2 (10:56→22:04)
--- NOTE | 2021-11-29 12:00 | Gastroenterology Progress Note ---
Assessment and Plan 1. acute pancreatitis - appears to be tolerating po, albeit remains confused. no obvious signs of abd pain. cont diet as tolerated from gi stand point. will sign off, please call as needed Subjective Date of service: 11/29/21 Principal diagnosis: Pancreatitis Interval history: pt tolerating po, remains confused and in restraints Objective - Constitutional Vitals: Temp Pulse Resp BP Pulse Ox 98.4 F 82 14 154/79 96 11/29/21 05:00 11/29/21 10:56 11/29/21 08:00 11/29/21 10:56 11/29/21 08:00 General appearance: no acute distress, other (+ ams) - Respiratory Respiratory effort: normal Respiratory: bilateral: CTA - Cardiovascular Rhythm: regular Heart Sounds: Present: S1 & S2 - Gastrointestinal General gastrointestinal: Present: soft, non-tender - Neurologic Neurological: disoriented - Labs CBC & Chem 7: 11/29/21 06:53 11/29/21 06:53 Labs: Laboratory Results - last 24 hr 11/29/21 11/29/21 06:53 06:53 WBC 10.5 RBC 4.28 Hgb 12.4 Hct 37.1 MCV 87 MCH 29 MCHC 33 RDW 13.7 Plt Count 279 Sodium 143 Potassium 3.2 L D Chloride 103.3 Carbon Dioxide 29 Anion Gap 14 BUN 11 Creatinine 0.7 Estimated GFR > 60 BUN/Creatinine Ratio 16 Glucose 175 H Calcium 9.1 Total Bilirubin 0.60 AST 18 ALT 16 Alkaline Phosphatase 85 Total Protein 7.0 Albumin 2.6 L Albumin/Globulin Ratio 0.6
--- NOTE | 2021-11-29 13:45 | Progress Note ---
Assessment and Plan Cultures: SARS CoV2 PCR: Positive 11/25/2021 blood culture: In process A/P: 81-year-old female with hypertension who was admitted to the hospital with complaints of abdominal pain: #Bilateral pneumonia: Secondary to COVID-19. Vaccinated. On room air. Considering her age, she is at risk of severe COVID-19, hence treat with Remdesivir for 3 days. #Acute pancreatitis: Gallbladder surgically absent on CT. There have been some reports of pancreatitis secondary to COVID-19. Recs: -Since patient is not hypoxic, steroids not needed -Completed 3-day Remdesivir given her age -prophylactic anticoagulation based on d-dimer per hospital protocol -Procalcitonin is normal, antibiotics stopped -trend ferritin, d-dimer, CRP every 2-3 days Trey Morillo MD [facility] O: [phone] F: [phone] Subjective Date of service: 11/29/21 Principal diagnosis: Pancreatitis Interval history: Afebrile, normal white count. No new issues. Objective - Exam Narrative Exam: Physical exam deferred to reduce risk of transmission of COVID-19. Please refer to primary team's note. - Constitutional Vitals: Vital Signs Temp Pulse Resp BP Pulse Ox 98.4 F 82 14 154/79 96 11/29/21 05:00 11/29/21 10:56 11/29/21 08:00 11/29/21 10:56 11/29/21 08:00 Temperature -Last 24 Hours Temperature 98.4 F Temperature 97.8 F Temperature 97.6 F - Labs CBC & Chem 7: 11/29/21 06:53 11/29/21 06:53 Labs: Abnormal lab results 11/29/21 Range/Units 06:53 Potassium 3.2 L D (3.6-5.0) mmol/L Glucose 175 H (65-100) mg/dL Albumin 2.6 L (3.9-5) g/dL
[2021-11-29] MEDS: THIAMINE 100 MG in SODIUM CHLORIDE 0.9% 50 ML IV SCH (15:19)
[2021-11-29] MEDS: PANTOPRAZOLE 40 MG TAB PO SCH (15:20)
--- NOTE | 2021-11-30 00:08 | Consultation ---
History of Present Illness Consult date: 11/29/21 Reason for Consult: AMS Chief complaint: AMS History of present illness: 81 yo female with htn who presented with acute abdomen and diagnosed with acute pancreatitis and bilteral pneumonia secondary to covid-19. Noted with acute enecephalopathy during this hospitalization. [COVID-19 protocol prevents bedside teleneurolog evaluation; patient was not seen.] Past History Past Medical History: hypertension, other (COVID (this admit); acute pancreatitis (this admit)) Past Surgical History: cholecystectomy Social history: full code Family history: no significant family history Medications and Allergies Allergies Allergy/AdvReac Type Severity Reaction Status Date / Time No Known Allergies Allergy Verified 11/25/21 02:53 Active Meds: Active Medications Acetaminophen (Acetaminophen 325 Mg Tab) 650 mg PO Q4H PRN PRN Reason: Pain MILD(1-3)/Fever >100.5/TRIPLETT Albuterol (Albuterol 2.5 Mg/3 Ml Nebu) 2.5 mg IH Q4HRT PRN PRN Reason: Shortness Of Breath Haloperidol Lactate (Haloperidol Lactate 5 Mg/1 Ml Inj) 5 mg IM Q6H PRN PRN Reason: Agitation Heparin Sodium (Porcine) (Heparin 5,000 Unit/1 Ml Vial) 5,000 unit SUB-Q Q8HR ELIESER Last Admin: 11/29/21 22:05 Dose: 5,000 unit Hydralazine HCl (Hydralazine 20 Mg/1 Ml Inj) 10 mg IV Q4HR PRN PRN Reason: Hypertension Last Admin: 11/27/21 15:51 Dose: 10 mg Thiamine HCl 100 mg/ Sodium (Chloride) 51 mls @ 100 mls/hr IV QDAY ELIESER Stop: 12/01/21 10:31 Last Infusion: 11/29/21 17:02 Dose: Infused Morphine Sulfate (Morphine 2 Mg/1 Ml Inj) 1 mg IV Q4H PRN PRN Reason: Pain, Moderate (4-6) Last Admin: 11/28/21 23:26 Dose: 1 mg Naloxone HCl (Naloxone 0.4 Mg/1 Ml Inj) 0.1 mg IV Q2MIN PRN PRN Reason: Res Rate </= 8 or 02 SAT < 92% Ondansetron HCl (Ondansetron 4 Mg/2 Ml Inj) 4 mg IV Q4H PRN PRN Reason: Nausea And Vomiting Pantoprazole Sodium (Pantoprazole 40 Mg Tab) 40 mg PO QDAC [facility] Last Admin: 11/29/21 15:20 Dose: 40 mg Senna (Sennosides 8.6 Mg Tab) 8.6 mg PO Q12HR [facility] Last Admin: 11/29/21 22:07 Dose: Not Given Sodium Chloride (Sodium Chloride 0.9% 10 Ml Flush Syringe) 10 ml IV BID [facility] Last Admin: 11/29/21 22:05 Dose: 10 ml Sodium Chloride (Sodium Chloride 0.9% 10 Ml Flush Syringe) 10 ml IV PRN PRN PRN Reason: LINE FLUSH Valsartan (Valsartan 160mg Tab) 160 mg PO BID [facility] Last Admin: 11/29/21 22:04 Dose: 160 mg Physical Examination - Vital Signs Vital Signs: Vital Signs Temp Pulse Resp BP Pulse Ox 98.3 F 93 H 19 135/81 99 11/25/21 02:16 11/25/21 02:16 11/25/21 02:16 11/25/21 02:16 11/25/21 02:16 Results - Laboratory Findings CBC and BMP: 11/29/21 06:53 11/29/21 06:53 Abnormal Lab Findings: Abnormal Labs 11/25/21 11/25/21 11/25/21 03:15 03:15 06:13 WBC 12.0 H Lymph % (Auto) 8.4 L [place] % (Auto) 7.6 H Lymph # (Auto) 1.0 L [place] # (Auto) 0.9 H Seg Neutrophils % 83.8 H Seg Neuts % (Manual) Lymphocytes % (Manual) Monocytes % (Manual) Seg Neutrophils # 10.0 H Seg Neutrophils # Man Lymphocytes # (Manual) Monocytes # (Manual) Sodium Potassium 3.5 L Chloride 97.5 L BUN 18 H Glucose 187 H Calcium 10.3 H Total Protein 8.3 H Albumin 3.6 L Amylase 249 H Lipase 173 H Urine WBC (Auto) 23.0 H U Epithel Cells (Auto) 54.0 H SARS-CoV-2 (PCR) 11/25/21 11/26/21 11/26/21 09:45 05:49 05:49 WBC 15.3 H Lymph % (Auto) 6.5 L [place] % (Auto) 7.9 H Lymph # (Auto) 1.0 L [place] # (Auto) 1.2 H Seg Neutrophils % 85.4 H Seg Neuts % (Manual) 89.0 H Lymphocytes % (Manual) 2.0 L Monocytes % (Manual) 8.0 H Seg Neutrophils # 12.7 H Seg Neutrophils # Man 13.6 H Lymphocytes # (Manual) 0.3 L Monocytes # (Manual) 1.2 H Sodium Potassium 3.0 L Chloride BUN Glucose 196 H Calcium Total Protein Albumin 2.9 L Amylase Lipase Urine WBC (Auto) U Epithel Cells (Auto) SARS-CoV-2 (PCR) Positive A 11/27/21 11/27/21 11/28/21 05:32 05:32 07:36 WBC 13.6 H Lymph % (Auto) [place] % (Auto) Lymph # (Auto) [place] # (Auto) Seg Neutrophils % Seg Neuts % (Manual) Lymphocytes % (Manual) Monocytes % (Manual) Seg Neutrophils # Seg Neutrophils # Man Lymphocytes # (Manual) Monocytes # (Manual) Sodium 146 H D Potassium 2.5 L* 2.4 L* Chloride BUN Glucose 193 H 166 H Calcium Total Protein Albumin 2.5 L 2.7 L Amylase Lipase 61 H Urine WBC (Auto) U Epithel Cells (Auto) SARS-CoV-2 (PCR) 11/29/21 06:53 WBC Lymph % (Auto) [place] % (Auto) Lymph # (Auto) [place] # (Auto) Seg Neutrophils % Seg Neuts % (Manual) Lymphocytes % (Manual) Monocytes % (Manual) Seg Neutrophils # Seg Neutrophils # Man Lymphocytes # (Manual) Monocytes # (Manual) Sodium Potassium 3.2 L D Chloride BUN Glucose 175 H Calcium Total Protein Albumin 2.6 L Amylase Lipase Urine WBC (Auto) U Epithel Cells (Auto) SARS-CoV-2 (PCR) Assessment and Plan 81 yo female with htn who presented with acute abdomen and diagnosed with acute pancreatitis and bilteral pneumonia secondary to covid-19. Noted with acute enecephalopathy during this hospitalization. [COVID-19 protocol prevents bedside teleneurolog evaluation; patient was not seen.] 1. Acute Metabolic Encephalopahty - in the setting of underlying infection; if below workup and aggressive treatment of infection reveals no improvement, consider basic labs such as b12, tsh, thiamine, rpr prior to possible LP (per ID also); aggressive treatment per primary team. 2. Acute Ischemic Stroke / ADEM - in the settin gof covid-19 (a hypercoaguabe state), recommend ecotirn 81 mg po qday; mri brain w/ wo contrast; if positive for stroke, initiate statin therapy. 3. Subclinical Seizure - recommend EEG to confirm no evidence. 4. COVID-19 - aggressive treatment per ID. 5. Hypertension - permissive hypertension until MR results available. Gunnar Dover MD Neurology
[2021-11-30] MEDS: HEPARIN 5,000 UNIT/1 ML VIAL SUB-Q SCH ×3 (06:06→22:23)
[2021-11-30] MEDS: SENNOSIDES 8.6 MG TAB PO SCH ×3 (08:59→22:22)
[2021-11-30] MEDS: hydrALAZINE 20 MG/1 ML INJ IV PRN (08:59)
[2021-11-30] MEDS: PANTOPRAZOLE 40 MG TAB PO SCH (09:01)
[2021-11-30] MEDS: VALSARTAN 160MG TAB PO SCH ×2 (09:02→22:22)
[2021-11-30] MEDS: THIAMINE 100 MG in SODIUM CHLORIDE 0.9% 50 ML IV SCH (09:18)
--- NOTE | 2021-11-30 13:26 | Progress Note ---
<ABEBEFEMIJOHNNIEREXBETTE - Last Filed: 11/30/21 18:27> Assessment and Plan - Patient Problems (1) Acute pancreatitis without infection or necrosis Current Visit: Yes Status: Acute Plan to address problem: Continue IV hydration. patient appears stable and deines abdominal pain Patient tolerating oral intake. Reviewed GI note-signed off. (2) COVID-19 vaccination not done Current Visit: Yes Status: Acute Plan to address problem: Patient on room air and no shortness of breath Completed Remdesivir Patient clinically stable. ID following (3) Hypertension Current Visit: Yes Status: Acute Plan to address problem: Elevated blood pressure-no hx of hypertension per pt record BP improved with am BP med Continue PRN hydralazine Continue scheduled BP med ECHO ordered-will f/u with result. (4) Encephalopathy Current Visit: Yes Status: Acute Plan to address problem: Patient continue to be acute confused-questionable cause. CT of the head -no acute finding MRI of the brain Able to answer her name Neurology consultation-i reviewed neurologist note-input appreciated. recommend ecotirn 81 mg po qday; mri brain w/ wo contrast and possitive for stroke-will start pt on statin labs b12, thiamine level. Subjective Date of service: 11/30/21 Principal diagnosis: Pancreatitis Interval history: Patient seen at bedside. patient awake-answered to her name appropriately but pleasantly confuse. Bilateral arm restraint on. reviewed lab, mar, and v/s. blo od pressure elevated 189//128. patient was given am blood pressure med and prn hydralazine-bp has improved-156/97. Objective - Constitutional Vitals: Vital Signs - 12hr 11/30/21 11/30/21 11/30/21 04:56 08:59 12:12 Temperature 97.8 F 97.3 F L Pulse Rate 83 73 100 H Respiratory 16 16 Rate Blood Pressure 189/128 189/128 Blood Pressure 156/97 [Right] O2 Sat by Pulse 95 97 Oximetry General appearance: Present: no acute distress - EENT Eyes: PERRL, EOM intact ENT: hearing intact, clear oral mucosa Ears: bilateral: normal - Neck Neck: supple, normal ROM - Respiratory Respiratory effort: normal Respiratory: bilateral: CTA - Breasts Breasts: normal - Cardiovascular Heart rate: 100 Rhythm: regular Heart Sounds: Present: S1 & S2. Absent: gallop, rub Extremities: pulses intact, No edema, normal color, Full ROM - Gastrointestinal General gastrointestinal: Present: soft, non-tender, non-distended, normal bowel sounds - Genitourinary Female genitourinary: normal - Integumentary Integumentary: clear, warm, dry - Musculoskeletal Musculoskeletal: 1, strength equal bilaterally - Neurologic Neurologic: moves all extremities - Psychiatric Psychiatric: other (bilateral arm restraint. pleasantly confused) - Allied health notes Allied health notes reviewed: nursing, PT - Labs CBC & Chem 7: 11/29/21 06:53 11/29/21 06:53 Labs: Abnormal lab results 11/30/21 11/30/21 11/30/21 Range/Units 10:36 10:36 10:36 Prealbumin 0.064 L (0.200-0.400) g/L Vitamin B12 962.9 H (211-911) pg/mL Folate 3.61 L (7.3-26.0) ng/mL HEART Score - HEART Score Troponin: Troponin T < 0.010 ng/mL (0.00-0.029) 11/25/21 04:29 <MIGUEL ANGEL CARTAGENA - Last Filed: 11/30/21 21:24> Assessment and Plan I saw and evaluated the patient. I agree with the findings and the plan of care as documented in the Nurse Practitioner's~note, with the following corrections and additions. Awaiting MRI of brain to evaluate encephalopathy. Objective - Constitutional Vitals: Vital Signs - 12hr 11/30/21 11/30/21 12:12 14:32 Temperature 97.3 F L Pulse Rate 100 H Respiratory 16 Rate Blood Pressure 156/97 [Right] O2 Sat by Pulse 97 96 Oximetry - Labs CBC & Chem 7: 11/29/21 06:53 11/29/21 06:53 Labs: Abnormal lab results 11/30/21 11/30/21 11/30/21 Range/Units 10:36 10:36 10:36 Prealbumin 0.064 L (0.200-0.400) g/L Vitamin B12 962.9 H (211-911) pg/mL Folate 3.61 L (7.3-26.0) ng/mL 11/30/21 Range/Units 15:13 Prealbumin (0.200-0.400) g/L Vitamin B12 918.0 H (211-911) pg/mL Folate (7.3-26.0) ng/mL HEART Score - HEART Score Troponin: Troponin T < 0.010 ng/mL (0.00-0.029) 11/25/21 04:29
--- NOTE | 2021-11-30 15:46 | Progress Note ---
Assessment and Plan Cultures: SARS CoV2 PCR: Positive 11/25/2021 blood culture: In process A/P: 81-year-old female with hypertension who was admitted to the hospital with complaints of abdominal pain: #Bilateral pneumonia: Secondary to COVID-19. Vaccinated. On room air. Considering her age, she is at risk of severe COVID-19, hence treat with Remdesivir for 3 days. #Acute pancreatitis: Gallbladder surgically absent on CT. There have been some reports of pancreatitis secondary to COVID-19. Recs: -Since patient is not hypoxic, steroids not needed -Completed 3-day Remdesivir given her age -prophylactic anticoagulation based on d-dimer per hospital protocol -Procalcitonin is normal, antibiotics stopped -trend ferritin, d-dimer, CRP every 2-3 days ID will sign off. please call with questions Trey Morillo MD [facility] ([facility] ([facility]) O: [phone] F: [phone] Subjective Date of service: 11/30/21 Principal diagnosis: Pancreatitis Interval history: Afebrile, normal whtie count. Objective - Exam Narrative Exam: Physical exam deferred to reduce risk of transmission of COVID-19. Please refer to primary team's note. - Constitutional Vitals: Vital Signs Temp Pulse Resp BP Pulse Ox 97.3 F L 100 H 16 156/97 96 11/30/21 12:12 11/30/21 12:12 11/30/21 12:12 11/30/21 12:12 11/30/21 14:32 Temperature -Last 24 Hours Temperature 97.3 F Temperature 97.8 F Temperature 97.5 F Temperature 97.5 F - Labs CBC & Chem 7: 11/29/21 06:53 11/29/21 06:53 Labs: Abnormal lab results 11/30/21 11/30/21 11/30/21 Range/Units 10:36 10:36 10:36 Prealbumin 0.064 L (0.200-0.400) g/L Vitamin B12 962.9 H (211-911) pg/mL Folate 3.61 L (7.3-26.0) ng/mL
[2021-12-01] MEDS: HEPARIN 5,000 UNIT/1 ML VIAL SUB-Q SCH ×3 (05:15→22:05)
[2021-12-01 06:45] LABS: Hematocrit 32.6 % (30.3-42.9); Hemoglobin 10.8 gm/dl (10.1-14.3); Mean Corpuscular HGB Conc 33 % (30-34); Mean Corpuscular Volume 86 fl (79-97); Platelet Count 231 K/mm3 (140-440); Red Blood Count 3.81 M/mm3 (3.65-5.03); Red Cell Distribution Width 13.5 % (13.2-15.2)
[2021-12-01 07:03] LABS: Alanine Aminotransferase 15 units/L (7-56); Albumin 2.3 g/dL (3.9-5); Blood Urea Nitrogen 7 mg/dL (7-17); Calcium 9.1 mg/dL (8.4-10.2); Hemolysis Index 8
[2021-12-01 07:13] LABS: BUN/Creatinine Ratio 14
[2021-12-01] MEDS ORDERED: POTASSIUM CHLORIDE ER 20 MEQ TAB PO NR ×2 (09:00)
[2021-12-01] MEDS ORDERED: POTASSIUM CHLORIDE 10 MEQ 10 MEQ/100 ML BAG IV ONE (09:00)
--- NOTE | 2021-12-01 11:39 | Magnetic Resonance Report ---
MR brain wo/w con, MR MRA/MRV head wo con INDICATION / CLINICAL INFORMATION: ADEM / Acute Stroke; +COVID-19. TECHNIQUE: Multiplanar, multisequence MRI of the brain. MRA of the head. 3-D/MIP reformats postprocessed. Percentage stenosis is determined by direct quantit ative measurements of distal internal carotid artery diameter compared with normal reference segments or by criteria similar to NASCET where applicable. COMPARISON: 11/27/2021 CT head FINDINGS: BRAIN: Intracranial: No restricted diffusion. No hemorrhage. Ventricular caliber is normal. No extra-axial c ollection. No mass. No herniation. 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 Hippocampal and generalized atrophy. Hemosiderin staining seen in the left lateral temporal lobe from remote hemorrhage. Orbits: No significant abnormality of visualized orbits. Sinuses/mastoid: No significant abnormality of visualized sinuses and mastoid air cells. Additional findings: Remote left inferior orbital wall fracture.. MRA HEAD: Intracranial vertebral arteries: Mild narrowing of the right cavernous ICA. No occlusion or high-grad e stenosis. Basilar artery: No occlusion or significant stenosis. Posterior cerebral arteries: No occlusion or significant stenosis. Intracranial internal carotid arteries: No occlusion or significant stenosis. Anterior cerebral arteries: No occlusion or significant stenosis. Middle cerebral arteries: No occlusion or significant stenosis. 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 Additional findings: None. IMPRESSION: 1. MRI Brain: No acute intracranial abnormality. Mild sequela of chronic microvascular disease. Senes cent changes including hippocampal and generalized atrophy. 2. MRA Head: No occlusion or high-grade stenosis. 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 Signer Name: Miko Robert MD Signed: 12/01/2021 11:34 AM Workstation Name: [id number]
[2021-12-01] MEDS: VALSARTAN 160MG TAB PO SCH ×2 (13:26→23:09)
[2021-12-01] MEDS: PANTOPRAZOLE 40 MG TAB PO SCH (13:26)
[2021-12-01] MEDS: SENNOSIDES 8.6 MG TAB PO SCH ×2 (13:29→22:08)
--- NOTE | 2021-12-01 13:49 | Progress Note ---
<BETTE OSHEA - Last Filed: 12/01/21 16:46> Assessment and Plan - Patient Problems (1) Acute pancreatitis without infection or necrosis Current Visit: Yes Status: Acute Plan to address problem: Continue IV hydration. patient appears stable and deines abdominal pain Patient tolerating oral intake. Reviewed GI note-signed off. (2) COVID-19 vaccination not done Current Visit: Yes Status: Acute Plan to address problem: Patient on room air and no shortness of breath Completed Remdesivir Patient clinically stable. ID following (3) Hypertension Current Visit: Yes Status: Acute Plan to address problem: Elevated blood pressure-no hx of hypertension per pt record BP improved with am BP med Continue PRN hydralazine Continue scheduled BP med ECHO-Ef 60 to 65% (4) Encephalopathy Current Visit: Yes Status: Acute Plan to address problem: Patient continue to be acute confused-questionable cause. CT of the head -no acute finding MRI of the [id number] with result Neurology consultation-i reviewed neurologist note-input appreciated. recommend ecotirn 81 mg po qday; mri brain w/ wo contrast and possitive for stroke-will start pt on statin labs b12, thiamine level. (5) Hypokalemia Current Visit: Yes Status: Acute Plan to address problem: Replace potassium Check mag and BMP in am Replace electrolyte PRN History Interval history: 11/30/21-Patient seen at bedside. patient awake-answered to her name appropriately but pleasantly confuse. Bilateral arm restraint on. reviewed lab, mar, and v/s. blood pressure elevated 189//128. patient was given am blood pressure med and prn hydralazine-bp has improved-156/97. 12/01/21-patient has low potassium replaced-check mag and BMP in am. patient seen back from MRI procedure. Patient pleasant and mildly confused. Hospitalist Physical - Constitutional Vitals: Temp Pulse Resp BP Pulse Ox 98.2 F 88 18 149/81 97 12/01/21 11:42 12/01/21 13:26 12/01/21 11:42 12/01/21 13:26 12/01/21 11:42 General appearance: Present: no acute distress - Respiratory Respiratory effort: normal Respiratory: bilateral: CTA - Abdominal General gastrointestinal: non-tender - Integumentary Integumentary: Present: warm - Psychiatric Psychiatric: other (confused) - Allied Health Allied health notes reviewed: nursing HEART Score - HEART Score Troponin: Troponin T < 0.010 ng/mL (0.00-0.029) 11/25/21 04:29 Results - Labs CBC & Chem 7: 12/01/21 06:19 12/01/21 06:19 Labs: Laboratory Last Values WBC 8.3 K/mm3 (4.5-11.0) 12/01/21 06:19 RBC 3.81 M/mm3 (3.65-5.03) 12/01/21 06:19 Hgb 10.8 gm/dl (10.1-14.3) 12/01/21 06:19 Hct 32.6 % (30.3-42.9) 12/01/21 06:19 MCV 86 fl (79-97) 12/01/21 06:19 MCH 29 pg (28-32) 12/01/21 06:19 MCHC 33 % (30-34) 12/01/21 06:19 RDW 13.5 % (13.2-15.2) 12/01/21 06:19 Plt Count 231 K/mm3 (140-440) 12/01/21 06:19 Lymph % (Auto) 6.5 % (13.4-35.0) L 11/26/21 05:49 [place] % (Auto) 7.9 % (0.0-7.3) H 11/26/21 05:49 Eos % (Auto) 0.0 % (0.0-4.3) 11/26/21 05:49 Baso % (Auto) 0.2 % (0.0-1.8) 11/26/21 05:49 Lymph # (Auto) 1.0 K/mm3 (1.2-5.4) L 11/26/21 05:49 [place] # (Auto) 1.2 K/mm3 (0.0-0.8) H 11/26/21 05:49 Eos # (Auto) 0.0 K/mm3 (0.0-0.4) 11/26/21 05:49 Baso # (Auto) 0.0 K/mm3 (0.0-0.1) 11/26/21 05:49 Add Manual Diff Complete 11/26/21 05:49 Total Counted 100 11/26/21 05:49 Seg Neutrophils % 85.4 % (40.0-70.0) H 11/26/21 05:49 Seg Neuts % (Manual) 89.0 % (40.0-70.0) H 11/26/21 05:49 Band Neutrophils % 0 % 11/26/21 05:49 Lymphocytes % (Manual) 2.0 % (13.4-35.0) L 11/26/21 05:49 Reactive Lymphs % (Man) 1.0 % 11/26/21 05:49 Monocytes % (Manual) 8.0 % (0.0-7.3) H 11/26/21 05:49 Eosinophils % (Manual) 0 % (0.0-4.3) 11/26/21 05:49 Basophils % (Manual) 0 % (0.0-1.8) 11/26/21 05:49 Metamyelocytes % 0 % 11/26/21 05:49 Myelocytes % 0 % 11/26/21 05:49 Promyelocytes % 0 % 11/26/21 05:49 Blast Cells % 0 % 11/26/21 05:49 Nucleated RBC % Not Reportable 11/26/21 05:49 Seg Neutrophils # 12.7 K/mm3 (1.8-7.7) H 11/26/21 05:49 Seg Neutrophils # Man 13.6 K/mm3 (1.8-7.7) H 11/26/21 05:49 Band Neutrophils # 0.0 K/mm3 11/26/21 05:49 Lymphocytes # (Manual) 0.3 K/mm3 (1.2-5.4) L 11/26/21 05:49 Abs React Lymphs (Man) 0.2 K/mm3 11/26/21 05:49 Monocytes # (Manual) 1.2 K/mm3 (0.0-0.8) H 11/26/21 05:49 Eosinophils # (Manual) 0.0 K/mm3 (0.0-0.4) 11/26/21 05:49 Basophils # (Manual) 0.0 K/mm3 (0.0-0.1) 11/26/21 05:49 Metamyelocytes # 0.0 K/mm3 11/26/21 05:49 Myelocytes # 0.0 K/mm3 11/26/21 05:49 Promyelocytes # 0.0 K/mm3 11/26/21 05:49 Blast Cells # 0.0 K/mm3 11/26/21 05:49 WBC Morphology Not Reportable 11/26/21 05:49 Hypersegmented Neuts Not Reportable 11/26/21 05:49 Hyposegmented Neuts Not Reportable 11/26/21 05:49 Hypogranular Neuts Not Reportable 11/26/21 05:49 Smudge Cells Not Reportable 11/26/21 05:49 Toxic Granulation Not Reportable 11/26/21 05:49 Toxic Vacuolation Not Reportable 11/26/21 05:49 Dohle Bodies Not Reportable 11/26/21 05:49 Pelger-Huet Anomaly Not Reportable 11/26/21 05:49 Jesse Rods Not Reportable 11/26/21 05:49 Platelet Estimate Consistent w auto 11/26/21 05:49 Clumped Platelets Not Reportable 11/26/21 05:49 Plt Clumps, EDTA Not Reportable 11/26/21 05:49 Large Platelets Rare 11/26/21 05:49 Giant Platelets Not Reportable 11/26/21 05:49 Platelet Satelliting Not Reportable 11/26/21 05:49 Plt Morphology Comment Not Reportable 11/26/21 05:49 RBC Morphology Normal 11/26/21 05:49 Dimorphic RBCs Not Reportable 11/26/21 05:49 Polychromasia Not Reportable 11/26/21 05:49 Hypochromasia Not Reportable 11/26/21 05:49 Poikilocytosis Not Reportable 11/26/21 05:49 Anisocytosis Not Reportable 11/26/21 05:49 Microcytosis Not Reportable 11/26/21 05:49 Macrocytosis Not Reportable 11/26/21 05:49 Spherocytes Not Reportable 11/26/21 05:49 Pappenheimer Bodies Not Reportable 11/26/21 05:49 Sickle Cells Not Reportable 11/26/21 05:49 Target Cells Not Reportable 11/26/21 05:49 Tear Drop Cells Not Reportable 11/26/21 05:49 Ovalocytes Not Reportable 11/26/21 05:49 Helmet Cells Not Reportable 11/26/21 05:49 Arreguin-Deep[place] Bodies Not Reportable 11/26/21 05:49 [place] Rings Not Reportable 11/26/21 05:49 [place] Cells Not Reportable 11/26/21 05:49 Bite Cells Not Reportable 11/26/21 05:49 Crenated Cell Not Reportable 11/26/21 05:49 Elliptocytes Not Reportable 11/26/21 05:49 Acanthocytes (Spur) Not Reportable 11/26/21 05:49 Rouleaux Not Reportable 11/26/21 05:49 Hemoglobin C Crystals Not Reportable 11/26/21 05:49 Schistocytes Not Reportable 11/26/21 05:49 Malaria parasites Not Reportable 11/26/21 05:49 Papito Bodies Not Reportable 11/26/21 05:49 Hem Pathologist Commnt No 11/26/21 05:49 Sodium 139 mmol/L (137-145) 12/01/21 06:19 Potassium 2.7 mmol/L (3.6-5.0) L* 12/01/21 06:19 Chloride 99.6 mmol/L (98-107) 12/01/21 06:19 Carbon Dioxide 29 mmol/L (22-30) 12/01/21 06:19 Anion Gap 13 mmol/L 12/01/21 06:19 BUN 7 mg/dL (7-17) 12/01/21 06:19 Creatinine 0.5 mg/dL (0.6-1.2) L 12/01/21 06:19 Estimated GFR > 60 ml/min 12/01/21 06:19 BUN/Creatinine Ratio 14 % 12/01/21 06:19 Glucose 148 mg/dL (65-100) H 12/01/21 06:19 Calcium 9.1 mg/dL (8.4-10.2) 12/01/21 06:19 Magnesium 1.80 mg/dL (1.7-2.3) 12/01/21 11:23 Total Bilirubin 0.50 mg/dL (0.1-1.2) 12/01/21 06:19 AST 17 units/L (5-40) 12/01/21 06:19 ALT 15 units/L (7-56) 12/01/21 06:19 Alkaline Phosphatase 77 units/L (35-129) 12/01/21 06:19 Total Creatine Kinase 117 units/L (30-135) 11/25/21 04:29 Troponin T < 0.010 ng/mL (0.00-0.029) 11/25/21 04:29 Total Protein 6.5 g/dL (6.3-8.2) 12/01/21 06:19 Albumin 2.3 g/dL (3.9-5) L 12/01/21 06:19 Albumin/Globulin Ratio 0.5 % 12/01/21 06:19 Prealbumin 0.064 g/L (0.200-0.400) L 11/30/21 10:36 Amylase 249 units/L (27-131) H 11/25/21 03:15 Lipase 61 units/L (13-60) H 11/27/21 05:32 Vitamin B12 918.0 pg/mL (211-911) H 11/30/21 15:13 Folate 3.61 ng/mL (7.3-26.0) L 11/30/21 10:36 Procalcitonin 0.11 ng/mL (<0.15) 11/25/21 09:30 TSH 1.990 mlU/mL (0.270-4.200) 11/30/21 10:36 Urine Color Yellow (Yellow) 11/25/21 06:13 Urine Turbidity Clear (Clear) 11/25/21 06:13 Urine pH 5.0 (5.0-7.0) 11/25/21 06:13 Ur Specific Edson 1.010 (1.003-1.030) 11/25/21 06:13 Urine Protein 30 mg/dl mg/dL (Negative) 11/25/21 06:13 Urine Glucose (UA) Negative mg/dL (Negative) 11/25/21 06:13 Urine Ketones Trace mg/dL (Negative) 11/25/21 06:13 Urine Blood Trace (Negative) 11/25/21 06:13 Urine Nitrite Negative (Negative) 11/25/21 06:13 Urine Bilirubin Negative (Negative) 11/25/21 06:13 Urine Urobilinogen 4.0 mg/dL (<2.0) 11/25/21 06:13 Ur Leukocyte Esterase Trace (Negative) 11/25/21 06:13 Urine WBC (Auto) 23.0 /HPF (0.0-6.0) H 11/25/21 06:13 Urine RBC (Auto) 181.0 /HPF (0.0-6.0) 11/25/21 06:13 U Epithel Cells (Auto) 54.0 /HPF (0-13.0) H 11/25/21 06:13 Hyaline Casts 451 /LPF 11/25/21 06:13 Waxy Casts 83 /LPF 11/25/21 06:13 Urine Mucus 3+ /HPF 11/25/21 06:13 Syphilis IgG/IgM Ab Nonreactive (NonReactive) 11/30/21 10:36 SARS-CoV-2 (PCR) Positive (Negative) A 11/25/21 09:45 Microbiology: Microbiology 11/25/21 05:51 Peripheral/Venous Blood Culture - Final NO GROWTH AFTER 5 DAYS 11/25/21 05:58 Peripheral/Venous Blood Culture - Final NO GROWTH AFTER 5 DAYS Bean/IV: Voiding Method Toilet Active Medications - Current Medications Current Medications: Generic Name Dose Route Start Last Admin Trade Name Freq PRN Reason Stop Dose Admin Acetaminophen 650 mg 11/25/21 09:00 Acetaminophen 325 Mg Tab PO Q4H PRN Pain MILD(1-3)/Fever >100.5/TRIPLETT Albuterol 2.5 mg 11/25/21 09:00 Albuterol 2.5 Mg/3 Ml Nebu IH Q4HRT PRN Shortness Of Breath Haloperidol Lactate 5 mg 11/28/21 11:00 Haloperidol Lactate 5 Mg/1 Ml Inj IM Q6H PRN Agitation Heparin Sodium (Porcine) 5,000 unit 11/25/21 14:00 12/01/21 05:15 Heparin 5,000 Unit/1 Ml Vial SUB-Q 5,000 unit Q8HR ELIESER Administration Hydralazine HCl 10 mg 11/25/21 09:51 11/30/21 08:59 Hydralazine 20 Mg/1 Ml Inj IV 10 mg Q4HR PRN Administration Hypertension Thiamine HCl 100 mg/ Sodium 51 mls @ 100 mls/hr 12/01/21 14:00 Chloride IV 12/01/21 14:30 ONCE ONE Morphine Sulfate 1 mg 11/26/21 15:14 11/28/21 23:26 Morphine 2 Mg/1 Ml Inj IV 1 mg Q4H PRN Administration Pain, Moderate (4-6) Naloxone HCl 0.1 mg 11/25/21 09:00 Naloxone 0.4 Mg/1 Ml Inj IV Q2MIN PRN Res Rate </= 8 or 02 SAT < 92% Ondansetron HCl 4 mg 11/25/21 09:00 Ondansetron 4 Mg/2 Ml Inj IV Q4H PRN Nausea And Vomiting Pantoprazole Sodium 40 mg 11/29/21 09:00 12/01/21 13:26 Pantoprazole 40 Mg Tab PO 40 mg QDAC ELIESER Administration Senna 8.6 mg 11/25/21 10:00 12/01/21 13:29 Sennosides 8.6 Mg Tab PO Not Given Q12HR ELIESER Sodium Chloride 10 ml 11/25/21 10:00 12/01/21 13:29 Sodium Chloride 0.9% 10 Ml Flush Syringe IV 10 ml BID ELIESER Administration Sodium Chloride 10 ml 11/25/21 08:50 Sodium Chloride 0.9% 10 Ml Flush Syringe IV PRN PRN LINE FLUSH Valsartan 160 mg 11/27/21 10:00 12/01/21 13:26 Valsartan 160mg Tab PO 160 mg BID ELIESER Administration Nutrition/Malnutrition Assess - Dietary Evaluation Nutrition/Malnutrition Findings: Nutrition Notes Start: 11/27/21 12:05 Freq: Status: Active Protocol: Document 11/29/21 15:24 FATMATA (Rec: 11/29/21 15:44 [email or web address] [id number]) Nutrition Notes Initial or Follow up Brief Note Current Diagnosis Malnutrition Other Pertinent Diagnosis COVID-19, Pancreatitis, Pneumonia, Metabolic Encephalopathy, ... Current Diet Full Liquids Diet (since B ). Height 5 ft 8 in Weight 78.5 kg Welch Body Weight (kg) 63.63 BMI 26.3 Weight change and time frame 0.2 Kg body weight gain reported in 2 days. Weight Status Overweight Subjective/Other Information RD consult for routine F/U on dietary advancement assessment . Diet advanced to PO, but no reports on Pt's PO intake of meals at the time, however, states that Pt is tolerating diet well, according to Progress notes. Pt is on Room Air, O2 saturation @ 96%, according to Physical Assessment History notes. Pt remains confused, according to Progress notes. Percent of energy/protein needs met: Prescribed Full Liquids Diet provides for energy/protein needs (1,155 Kcal/37 g) during LOS. #1 Nutrition Diagnosis Inadequate oral intake Comments: Diet advanced to PO, but no reports on Pt's PO intake of meals at the time, however, MD states that Pt is tolerating diet well, according to Progress notes. Diagnosis Progress(for reassessment Resolved documentation) Is patient on ventilator? No Is Patient Ambulatory and/or Out of Bed No REE-(Deridder-St Jeor-confined to bed) 1565.040 Kcal/Kg value to use for calculation 24 Approximate Energy Requirements Using 1884 kcal/Kg Calculation Used for Recommendations Kcal/kg Additional Notes Protein: 1-1.2 g/Kg ABW; 79-95 g/day. Fluids: 1 ml/Kcal, or as per MD. Nutrition Intervention Change Diet Order: Continue Full Liquids Diet, advance as tolerated. Nutrition Support: Discontinued. Goal #1 Adjust the dietary intervention to better serve Pt's needs and clinical conditions during LOS. Follow-Up By: 12/06/21 Additional Comments Continue monitoring food tolerance, %PO intake of meals , and BM. <MIGUEL ANGEL CARTAGENA E - Last Filed: 12/01/21 20:09> Assessment and Plan Assessment and plan: I saw and evaluated the patient. I agree with the findings and the plan of care as documented in the Nurse Practitioner's~note, with the following corrections and additions. Hospitalist Physical - Constitutional Vitals: Temp Pulse Resp BP Pulse Ox 98.0 F 81 18 138/56 95 12/01/21 17:07 12/01/21 17:07 12/01/21 17:07 12/01/21 17:07 12/01/21 17:07 HEART Score - HEART Score Troponin: Troponin T < 0.010 ng/mL (0.00-0.029) 11/25/21 04:29 Results - Labs CBC & Chem 7: 12/01/21 06:19 12/01/21 06:19 Labs: Laboratory Last Values WBC 8.3 K/mm3 (4.5-11.0) 12/01/21 06:19 RBC 3.81 M/mm3 (3.65-5.03) 12/01/21 06:19 Hgb 10.8 gm/dl (10.1-14.3) 12/01/21 06:19 Hct 32.6 % (30.3-42.9) 12/01/21 06:19 MCV 86 fl (79-97) 12/01/21 06:19 MCH 29 pg (28-32) 12/01/21 06:19 MCHC 33 % (30-34) 12/01/21 06:19 RDW 13.5 % (13.2-15.2) 12/01/21 06:19 Plt Count 231 K/mm3 (140-440) 12/01/21 06:19 Lymph % (Auto) 6.5 % (13.4-35.0) L 11/26/21 05:49 [place] % (Auto) 7.9 % (0.0-7.3) H 11/26/21 05:49 Eos % (Auto) 0.0 % (0.0-4.3) 11/26/21 05:49 Baso % (Auto) 0.2 % (0.0-1.8) 11/26/21 05:49 Lymph # (Auto) 1.0 K/mm3 (1.2-5.4) L 11/26/21 05:49 [place] # (Auto) 1.2 K/mm3 (0.0-0.8) H 11/26/21 05:49 Eos # (Auto) 0.0 K/mm3 (0.0-0.4) 11/26/21 05:49 Baso # (Auto) 0.0 K/mm3 (0.0-0.1) 11/26/21 05:49 Add Manual Diff Complete 11/26/21 05:49 Total Counted 100 11/26/21 05:49 Seg Neutrophils % 85.4 % (40.0-70.0) H 11/26/21 05:49 Seg Neuts % (Manual) 89.0 % (40.0-70.0) H 11/26/21 05:49 Band Neutrophils % 0 % 11/26/21 05:49 Lymphocytes % (Manual) 2.0 % (13.4-35.0) L 11/26/21 05:49 Reactive Lymphs % (Man) 1.0 % 11/26/21 05:49 Monocytes % (Manual) 8.0 % (0.0-7.3) H 11/26/21 05:49 Eosinophils % (Manual) 0 % (0.0-4.3) 11/26/21 05:49 Basophils % (Manual) 0 % (0.0-1.8) 11/26/21 05:49 Metamyelocytes % 0 % 11/26/21 05:49 Myelocytes % 0 % 11/26/21 05:49 Promyelocytes % 0 % 11/26/21 05:49 Blast Cells % 0 % 11/26/21 05:49 Nucleated RBC % Not Reportable 11/26/21 05:49 Seg Neutrophils # 12.7 K/mm3 (1.8-7.7) H 11/26/21 05:49 Seg Neutrophils # Man 13.6 K/mm3 (1.8-7.7) H 11/26/21 05:49 Band Neutrophils # 0.0 K/mm3 11/26/21 05:49 Lymphocytes # (Manual) 0.3 K/mm3 (1.2-5.4) L 11/26/21 05:49 Abs React Lymphs (Man) 0.2 K/mm3 11/26/21 05:49 Monocytes # (Manual) 1.2 K/mm3 (0.0-0.8) H 11/26/21 05:49 Eosinophils # (Manual) 0.0 K/mm3 (0.0-0.4) 11/26/21 05:49 Basophils # (Manual) 0.0 K/mm3 (0.0-0.1) 11/26/21 05:49 Metamyelocytes # 0.0 K/mm3 11/26/21 05:49 Myelocytes # 0.0 K/mm3 11/26/21 05:49 Promyelocytes # 0.0 K/mm3 11/26/21 05:49 Blast Cells # 0.0 K/mm3 11/26/21 05:49 WBC Morphology Not Reportable 11/26/21 05:49 Hypersegmented Neuts Not Reportable 11/26/21 05:49 Hyposegmented Neuts Not Reportable 11/26/21 05:49 Hypogranular Neuts Not Reportable 11/26/21 05:49 Smudge Cells Not Reportable 11/26/21 05:49 Toxic Granulation Not Reportable 11/26/21 05:49 Toxic Vacuolation Not Reportable 11/26/21 05:49 Dohle Bodies Not Reportable 11/26/21 05:49 Pelger-Huet Anomaly Not Reportable 11/26/21 05:49 Jesse Rods Not Reportable 11/26/21 05:49 Platelet Estimate Consistent w auto 11/26/21 05:49 Clumped Platelets Not Reportable 11/26/21 05:49 Plt Clumps, EDTA Not Reportable 11/26/21 05:49 Large Platelets Rare 11/26/21 05:49 Giant Platelets Not Reportable 11/26/21 05:49 Platelet Satelliting Not Reportable 11/26/21 05:49 Plt Morphology Comment Not Reportable 11/26/21 05:49 RBC Morphology Normal 11/26/21 05:49 Dimorphic RBCs Not Reportable 11/26/21 05:49 Polychromasia Not Reportable 11/26/21 05:49 Hypochromasia Not Reportable 11/26/21 05:49 Poikilocytosis Not Reportable 11/26/21 05:49 Anisocytosis Not Reportable 11/26/21 05:49 Microcytosis Not Reportable 11/26/21 05:49 Macrocytosis Not Reportable 11/26/21 05:49 Spherocytes Not Reportable 11/26/21 05:49 Pappenheimer Bodies Not Reportable 11/26/21 05:49 Sickle Cells Not Reportable 11/26/21 05:49 Target Cells Not Reportable 11/26/21 05:49 Tear Drop Cells Not Reportable 11/26/21 05:49 Ovalocytes Not Reportable 11/26/21 05:49 Helmet Cells Not Reportable 11/26/21 05:49 [place]reguin-[place] Bodies Not Reportable 11/26/21 05:49 [place] Rings Not Reportable 11/26/21 05:49 [place] Cells Not Reportable 11/26/21 05:49 Bite Cells Not Reportable 11/26/21 05:49 Crenated Cell Not Reportable 11/26/21 05:49 Elliptocytes Not Reportable 11/26/21 05:49 Acanthocytes (Spur) Not Reportable 11/26/21 05:49 Rouleaux Not Reportable 11/26/21 05:49 Hemoglobin C Crystals Not Reportable 11/26/21 05:49 Schistocytes Not Reportable 11/26/21 05:49 Malaria parasites Not Reportable 11/26/21 05:49 Papito Bodies Not Reportable 11/26/21 05:49 Hem Pathologist Commnt No 11/26/21 05:49 Sodium 139 mmol/L (137-145) 12/01/21 06:19 Potassium 2.7 mmol/L (3.6-5.0) L* 12/01/21 06:19 Chloride 99.6 mmol/L (98-107) 12/01/21 06:19 Carbon Dioxide 29 mmol/L (22-30) 12/01/21 06:19 Anion Gap 13 mmol/L 12/01/21 06:19 BUN 7 mg/dL (7-17) 12/01/21 06:19 Creatinine 0.5 mg/dL (0.6-1.2) L 12/01/21 06:19 Estimated GFR > 60 ml/min 12/01/21 06:19 BUN/Creatinine Ratio 14 % 12/01/21 06:19 Glucose 148 mg/dL (65-100) H 12/01/21 06:19 Calcium 9.1 mg/dL (8.4-10.2) 12/01/21 06:19 Magnesium 1.80 mg/dL (1.7-2.3) 12/01/21 11:23 Total Bilirubin 0.50 mg/dL (0.1-1.2) 12/01/21 06:19 AST 17 units/L (5-40) 12/01/21 06:19 ALT 15 units/L (7-56) 12/01/21 06:19 Alkaline Phosphatase 77 units/L (35-129) 12/01/21 06:19 Total Creatine Kinase 117 units/L (30-135) 11/25/21 04:29 Troponin T < 0.010 ng/mL (0.00-0.029) 11/25/21 04:29 Total Protein 6.5 g/dL (6.3-8.2) 12/01/21 06:19 Albumin 2.3 g/dL (3.9-5) L 12/01/21 06:19 Albumin/Globulin Ratio 0.5 % 12/01/21 06:19 Prealbumin 0.064 g/L (0.200-0.400) L 11/30/21 10:36 Amylase 249 units/L (27-131) H 11/25/21 03:15 Lipase 61 units/L (13-60) H 11/27/21 05:32 Vitamin B12 918.0 pg/mL (211-911) H 11/30/21 15:13 Folate 3.61 ng/mL (7.3-26.0) L 11/30/21 10:36 Procalcitonin 0.11 ng/mL (<0.15) 11/25/21 09:30 TSH 1.990 mlU/mL (0.270-4.200) 11/30/21 10:36 Urine Color Yellow (Yellow) 11/25/21 06:13 Urine Turbidity Clear (Clear) 11/25/21 06:13 Urine pH 5.0 (5.0-7.0) 11/25/21 06:13 Ur Specific E[place]on 1.010 (1.003-1.030) 11/25/21 06:13 Urine Protein 30 mg/dl mg/dL (Negative) 11/25/21 06:13 Urine Glucose (UA) Negative mg/dL (Negative) 11/25/21 06:13 Urine Ketones Trace mg/dL (Negative) 11/25/21 06:13 Urine Blood Trace (Negative) 11/25/21 06:13 Urine Nitrite Negative (Negative) 11/25/21 06:13 Urine Bilirubin Negative (Negative) 11/25/21 06:13 Urine Urobilinogen 4.0 mg/dL (<2.0) 11/25/21 06:13 Ur Leukocyte Esterase Trace (Negative) 11/25/21 06:13 Urine WBC (Auto) 23.0 /HPF (0.0-6.0) H 11/25/21 06:13 Urine RBC (Auto) 181.0 /HPF (0.0-6.0) 11/25/21 06:13 U Epithel Cells (Auto) 54.0 /HPF (0-13.0) H 11/25/21 06:13 Hyaline Casts 451 /LPF 11/25/21 06:13 Waxy Casts 83 /LPF 11/25/21 06:13 Urine Mucus 3+ /HPF 11/25/21 06:13 Syphilis IgG/IgM Ab Nonreactive (NonReactive) 11/30/21 10:36 SARS-CoV-2 (PCR) Positive (Negative) A 11/25/21 09:45 Bean/IV: Voiding Method Toilet Active Medications - Current Medications Current Medications: Generic Name Dose Route Start Last Admin Trade Name Freq PRN Reason Stop Dose Admin Acetaminophen 650 mg 11/25/21 09:00 Acetaminophen 325 Mg Tab PO Q4H PRN Pain MILD(1-3)/Fever >100.5/TRIPLETT Albuterol 2.5 mg 11/25/21 09:00 Albuterol 2.5 Mg/3 Ml Nebu IH Q4HRT PRN Shortness Of Breath Folic Acid 1 mg 12/01/21 17:00 12/01/21 18:20 Folic Acid 1 Mg Tab PO 1 mg QDAY ELIESER Administration Haloperidol Lactate 5 mg 11/28/21 11:00 Haloperidol Lactate 5 Mg/1 Ml Inj IM Q6H PRN Agitation Heparin Sodium (Porcine) 5,000 unit 11/25/21 14:00 12/01/21 15:24 Heparin 5,000 Unit/1 Ml Vial SUB-Q 5,000 unit Q8HR ELIESER Administration Hydralazine HCl 10 mg 11/25/21 09:51 11/30/21 08:59 Hydralazine 20 Mg/1 Ml Inj IV 10 mg Q4HR PRN Administration Hypertension Morphine Sulfate 1 mg 11/26/21 15:14 11/28/21 23:26 Morphine 2 Mg/1 Ml Inj IV 1 mg Q4H PRN Administration Pain, Moderate (4-6) Naloxone HCl 0.1 mg 11/25/21 09:00 Naloxone 0.4 Mg/1 Ml Inj IV Q2MIN PRN Res Rate </= 8 or 02 SAT < 92% Ondansetron HCl 4 mg 11/25/21 09:00 Ondansetron 4 Mg/2 Ml Inj IV Q4H PRN Nausea And Vomiting Pantoprazole Sodium 40 mg 11/29/21 09:00 12/01/21 13:26 Pantoprazole 40 Mg Tab PO 40 mg QDAC ELIESER Administration Senna 8.6 mg 11/25/21 10:00 12/01/21 13:29 Sennosides 8.6 Mg Tab PO Not Given Q12HR ELIESER Sodium Chloride 10 ml 11/25/21 10:00 12/01/21 13:29 Sodium Chloride 0.9% 10 Ml Flush Syringe IV 10 ml BID ELIESER Administration Sodium Chloride 10 ml 11/25/21 08:50 Sodium Chloride 0.9% 10 Ml Flush Syringe IV PRN PRN LINE FLUSH Valsartan 160 mg 11/27/21 10:00 12/01/21 13:26 Valsartan 160mg Tab PO 160 mg BID ELIESER Administration Nutrition/Malnutrition Assess - Dietary Evaluation Nutrition/Malnutrition Findings: Nutrition Notes Start: 11/27/21 12:05 Freq: Status: Active Protocol: Document 11/29/21 15:24 FATMATA (Rec: 11/29/21 15:44 [email or web address] [email or web address]) Nutrition Notes Initial or Follow up Brief Note Current Diagnosis Malnutrition Other Pertinent Diagnosis COVID-19, Pancreatitis, Pneumonia, Metabolic Encephalopathy, ... Current Diet Full Liquids Diet (since B ). Height 5 ft 8 in Weight 78.5 kg Welch Body Weight (kg) 63.63 BMI 26.3 Weight change and time frame 0.2 Kg body weight gain reported in 2 days. Weight Status Overweight Subjective/Other Information RD consult for routine F/U on dietary advancement assessment . Diet advanced to PO, but no reports on Pt's PO intake of meals at the time, however, MD states that Pt is tolerating diet well, according to Progress notes. Pt is on Room Air, O2 saturation @ 96%, according to Physical Assessment History notes. Pt remains confused, according to Progress notes. Percent of energy/protein needs met: Prescribed Full Liquids Diet provides for energy/protein needs (1,155 Kcal/37 g) during LOS. #1 Nutrition Diagnosis Inadequate oral intake Comments: Diet advanced to PO, but no reports on Pt's PO intake of meals at the time, however, MD states that Pt is tolerating diet well, according to Progress notes. Diagnosis Progress(for reassessment Resolved documentation) Is patient on ventilator? No Is Patient Ambulatory and/or Out of Bed No REE-([facility]-confined to bed) 1565.040 Kcal/Kg value to use for calculation 24 Approximate Energy Requirements Using 1884 kcal/Kg Calculation Used for Recommendations Kcal/kg Additional Notes Protein: 1-1.2 g/Kg ABW; 79-95 g/day. Fluids: 1 ml/Kcal, or as per MD. Nutrition Intervention Change Diet Order: Continue Full Liquids Diet, advance as tolerated. Nutrition Support: Discontinued. Goal #1 Adjust the dietary intervention to better serve Pt's needs and clinical conditions during LOS. Follow-Up By: 12/06/21 Additional Comments Continue monitoring food tolerance, %PO intake of meals , and BM.
[2021-12-01] MEDS ORDERED: THIAMINE 100 MG in SODIUM CHLORIDE 0.9% 50 ML IV ONE (14:00)
[2021-12-01] MEDS: THIAMINE 100 MG in SODIUM CHLORIDE 0.9% 50 ML IV SCH (15:22)
[2021-12-01] MEDS: FOLIC ACID 1 MG TAB PO SCH (18:20)
[2021-12-01] MEDS ORDERED: MAGNESIUM SULFATE 1 GM in SODIUM CHLORIDE 0.9% 50 ML IV ONE (20:43)
[2021-12-02] MEDS: HEPARIN 5,000 UNIT/1 ML VIAL SUB-Q SCH ×2 (06:00→13:14)
[2021-12-02 07:30] VITALS: BP 168/63
[2021-12-02] MEDS: PANTOPRAZOLE 40 MG TAB PO SCH (09:14)
[2021-12-02] MEDS: SENNOSIDES 8.6 MG TAB PO SCH (09:14)
[2021-12-02] MEDS: VALSARTAN 160MG TAB PO SCH (09:14)
[2021-12-02] MEDS: FOLIC ACID 1 MG TAB PO SCH (09:15)
[2021-12-02 09:27] LABS: Basophils % (Auto) 0.2 % (0.0-1.8); Eosinophils # (Auto) 0.1 K/mm3 (0.0-0.4); Eosinophils % (Auto) 0.8 % (0.0-4.3); Hemoglobin 10.5 gm/dl (10.1-14.3); Lymphocytes # (Auto) 1.8 K/mm3 (1.2-5.4); Lymphocytes % (Auto) 28.9 % (13.4-35.0); Mean Corpuscular HGB Conc 32 % (30-34); Mean Corpuscular Volume 88 fl (79-97); Monocytes # (Auto) 0.7 K/mm3 (0.0-0.8); Platelet Count 232 K/mm3 (140-440); Red Blood Count 3.76 M/mm3 (3.65-5.03); Red Cell Distribution Width 13.7 % (13.2-15.2)
[2021-12-02 09:28] LABS: Blood Urea Nitrogen 6 mg/dL (7-17); Calcium 9.3 mg/dL (8.4-10.2); Hemolysis Index 5
[2021-12-02 09:29] LABS: BUN/Creatinine Ratio 12
--- NOTE | 2021-12-02 10:41 | Discharge Summary ---
Providers - Providers Date of Admission: 11/25/21 08:50 Date of discharge: 12/02/21 Attending physician: MIGUEL ANGEL CARTAGENA MD 11/25/21 08:50 Consult to Physician [CONS] Routine Comment: Consulting Provider: RAZA DANIEL Physician Instructions: Reason For Exam: PNEUMONIA 11/25/21 08:52 Consult to Physician [CONS] Routine Comment: Consulting Provider: LUIS MANUEL FARAH Physician Instructions: Reason For Exam: ACUTE PANCREATITIS Occupational Therapy Evaluate and Treat [CONS] Routine Comment: Reason For Exam: DEBILITY Physical Therapy Evaluation and Treat [CONS] Routine Comment: Reason For Exam: DEBILITY 11/27/21 08:07 Consult to Dietitian/Nutrition [CONS] Routine Physician Instructions: Reason For Exam: Reason for Consult: Write/Manage Tube Feeding 11/28/21 07:37 Consult to Physician [CONS] Routine Comment: Consulting Provider: ROSS OH Physician Instructions: Reason For Exam: AMS 11/29/21 08:54 Occupational Therapy Evaluate and Treat [CONS] Routine Comment: Reason For Exam: debility Primary care physician: GLASS TECHNOLOGIST Hospitalization Reason for admission: Acute Pancreatitis Condition: Good Hospital course: 81-year-old vaccinated female admitted on 11/25 with Acute pancreatitis secondary to COVID-19, and Completed 3-day Remdesivir. 11/26: Pancreatitis could be secondary to her COVID 19. treated with aggressive IV hydration. GI following 11/27: Patient continues with acute confusion. CT Head negative for acute findings. Neurology consulted 11/28: Patient continues to improve with improvement in liver enzymes, passed swallow eval and placed on clear liquid diet, and advance to full liquid. Continues to have low potassium and magnesium, monitored and replaced electrolytes prn. 11/29: Continues to clinically improve, tolerating oral diet, remains on COVID precautions and has completed course of remdesivir 12/02: no overnight events, pt continues to need potassium replacement. Prescription given for 7-day supply of potassium and thiamine Disposition: 01 HOME / SELF CARE / HOMELESS Final Discharge Diagnosis (Prints w/discharge instructions): Status postcholecystectomy. Acute metabolic encephalopathy present on admission. Moderate colonic Diverticulosis. Pneumonia possible COVID related. COVID-19. Morbid obesity. Hypokalemia. Abdominal pain Time spent for discharge: 45 - Discharge Diagnoses (1) COVID-19 Status: Resolved (2) Hypokalemia Status: Chronic (3) Acute pancreatitis without infection or necrosis Status: Resolved (4) Acute abdominal pain Status: Acute (5) COVID-19 vaccination not done Status: Acute (6) Elevated lipase Status: Acute (7) Encephalopathy Status: Acute (8) Hypertension Status: Acute (9) Suspected COVID-19 virus infection Status: Acute (10) Multifocal pneumonia Status: Resolved Core Measure Documentation - Palliative Care Palliative Care/ Comfort Measures: Not Applicable - Core Measures Any of the following diagnoses?: none - VTE Discharge Requirements Deep Vein Thrombosis/Pulmonary Embolism Present on Admission: No - Acute [place] Discharge Requirements Aspirin at discharge: No - Heart Failure Discharge Requirements RISSA/ARB for LVSD if EF <40%: Not Applicable - Stroke Discharge Requirements Statin for LDL = or >70 mg/dl on DC: Not Applicable Exam - Constitutional Vitals: Temp Pulse Resp BP Pulse Ox 98.0 F 75 20 168/63 100 12/01/21 17:07 12/02/21 06:08 12/02/21 06:08 12/02/21 06:08 12/02/21 07:11 General appearance: Present: no acute distress - EENT Eyes: Present: PERRL, EOM intact ENT: hearing intact, clear oral mucosa, dentition normal - Neck Neck: Present: supple, normal ROM - Respiratory Respiratory effort: normal Respiratory: bilateral: diminished (bases) - Cardiovascular Heart Sounds: Present: S1 & S2 - Extremities Extremities: pulses symmetrical, No edema Peripheral Pulses: within normal limits - Abdominal General gastrointestinal: Present: soft, non-tender, non-distended, normal bowel sounds Female genitourinary: Present: deferred - Rectal Rectal Exam: deferred - Integumentary Integumentary: Present: clear, warm, dry - Psychiatric Psychiatric: appropriate mood/affect, cooperative Plan Activity: no restrictions, advance as tolerated Diet: regular Additional Instructions: ollow up with PCP in 1-2 weeks regarding hypokalemia (electrolyte abnormality) and for BP mgmt Plan of Treatment: blood pressure control Follow up with: PRIMARY CARE, [Primary Care Provider] - 7 Days Prescriptions: Folic Acid [Folvite] 1 mg PO QDAY 7 Days #7 tab Potassium Chloride [K-Dur] 20 meq PO QDAY 7 Days #7 tab Amlodipine Besylate [Norvasc] 10 mg PO DAILY 30 Days #30 tab Thiamine [Vitamin B-1] 100 mg PO QDAY 7 Days #7 tablet Pending Studies none
[2021-12-02] MEDS ORDERED: POTASSIUM CHLORIDE ER 10 MEQ TAB PO SCH (12:00)
--- NOTE | 2021-12-03 13:33 | Discharge Summary ---
Providers - Providers Date of Admission: 11/25/21 08:50 Date of discharge: 12/02/21 Attending physician: MIGUEL ANGEL CARTAGENA MD 11/25/21 08:50 Consult to Physician [CONS] Routine Comment: Consulting Provider: RAZA DANIEL Physician Instructions: Reason For Exam: PNEUMONIA 11/25/21 08:52 Consult to Physician [CONS] Routine Comment: Consulting Provider: LUIS MANUEL FARAH Physician Instructions: Reason For Exam: ACUTE PANCREATITIS Occupational Therapy Evaluate and Treat [CONS] Routine Comment: Reason For Exam: DEBILITY Physical Therapy Evaluation and Treat [CONS] Routine Comment: Reason For Exam: DEBILITY 11/27/21 08:07 Consult to Dietitian/Nutrition [CONS] Routine Physician Instructions: Reason For Exam: Reason for Consult: Write/Manage Tube Feeding 11/28/21 07:37 Consult to Physician [CONS] Routine Comment: Consulting Provider: ROSS OH Physician Instructions: Reason For Exam: AMS 11/29/21 08:54 Occupational Therapy Evaluate and Treat [CONS] Routine Comment: Reason For Exam: debility Primary care physician: HYDRAULIC BULL RIVETER OPERATOR Hospitalization Reason for admission: Acute Pancreatitis Hospital course: 81-year-old vaccinated female admitted on 11/25 with Acute pancreatitis secondary to COVID-19, and Completed 3-day Remdesivir. 11/26: Pancreatitis could be secondary to her COVID 19. treated with aggressive IV hydration. GI following 11/27: Patient continues with acute confusion. CT Head negative for acute findings. Neurology consulted 11/28: Patient continues to improve with improvement in liver enzymes, passed swallow eval and placed on clear liquid diet, and advance to full liquid. Continues to have low potassium and magnesium, monitored and replaced electroly daniel prn. 11/29: Continues to clinically improve, tolerating oral diet, remains on COVID precautions and has completed course of remdesivir 12/02: no overnight events, pt continues to need potassium replacement. Prescription given for 7-day supply of potassium and thiamine Disposition: 01 HOME / SELF CARE / HOMELESS Final Discharge Diagnosis (Prints w/discharge instructions): Hypokalemia, acute pancreatitis, COVID-19 Time spent for discharge: 45 Core Measure Documentation - Palliative Care Palliative Care/ Comfort Measures: Not Applicable - Core Measures Any of the following diagnoses?: none - VTE Discharge Requirements Deep Vein Thrombosis/Pulmonary Embolism Present on Admission: No Has pt received <5 days of overlap therapy or INR<2.0: No Anticoagulant overlap therapy prescribed at discharge: No Contraindication No Overlap Therapy order at DC: Not Indicated - Acute [place] Discharge Requirements Aspirin at discharge: No Reason for no aspirin on DC: Medical contraindication - Heart Failure Discharge Requirements RISSA/ARB for LVSD if EF <40%: Not Applicable - Stroke Discharge Requirements Statin for LDL = or >70 mg/dl on DC: Not Applicable Exam - Physical Exam Narrative exam: General appearance: Present: no acute distress - EENT Eyes: Present: PERRL, EOM intact ENT: hearing intact, clear oral mucosa, dentition normal - Neck Neck: Present: supple, normal ROM - Respiratory Respiratory effort: normal Respiratory: bilateral: diminished (bases) - Cardiovascular Heart Sounds: Present: S1 & S2 - Extremities Extremities: pulses symmetrical, No edema Peripheral Pulses: within normal limits - Abdominal General gastrointestinal: Present: soft, non-tender, non-distended, normal bowel sounds Female genitourinary: Present: deferred - Rectal Rectal Exam: deferred - Integumentary Integumentary: Present: clear, warm, dry - Psychiatric Psychiatric: appropriate mood/affect, cooperative - Constitutional Vitals: Temp Pulse Resp BP Pulse Ox 98.0 F 75 20 168/63 100 12/01/21 17:07 12/02/21 06:08 12/02/21 06:08 12/02/21 06:08 12/02/21 07:11 Plan Activity: advance as tolerated Diet: regular Plan of Treatment: blood pressure control Follow up with: PRIMARY CARE, [Primary Care Provider] - 7 Days Prescriptions: Folic Acid [Folvite] 1 mg PO QDAY 7 Days #7 tab Potassium Chloride [K-Dur] 20 meq PO QDAY 7 Days #7 tab Amlodipine Besylate [Norvasc] 10 mg PO DAILY 30 Days #30 tab Thiamine [Vitamin B-1] 100 mg PO QDAY 7 Days #7 tablet
== END 2021-12-02 20:30 | disposition home health service (06) | DRG 177 ==
LOC: ED 01:55 → 3A 08:50
PROVIDERS: ADMIT Internal Medicine; ATTEND Internal Medicine
PROC: XW033E5 Introduction of Remdesivir Anti-infective into Peripheral Vein, Percutaneous Approach, New Technology Group 5 (ICD-10-PCS; principal; 2021-11-25)
DX: U07.1 COVID-19 (principal); J12.82 Pneumonia due to coronavirus disease 2019; K85.80 Other acute pancreatitis without necrosis or infection; G93.41 Metabolic encephalopathy; K57.30 Diverticulosis of large intestine without perforation or abscess without bleeding; I10 Essential (primary) hypertension; E66.01 Morbid (severe) obesity due to excess calories; Z68.26 Body mass index [BMI] 26.0-26.9, adult; E87.6 Hypokalemia; Z90.49 Acquired absence of other specified parts of digestive tract; Z28.310 Unvaccinated for COVID-19
CPT/HCPCS: 36415; 70450; 70544; 70553; 71045; 74018; 74177; 76705; 80048; 80053; 81001; 82150; 82306; 82550; 82607; 82747; 83690; 83735; 84134; 84145; 84425; 84443; 84484; 85007; 85025; 85027; 86592; 87040; 87086; 93005; 93306; G0378; J3490; A9575; C8929; C9113; J0360; J0456; J0696; J1630; J1644; J2060; J2270; J2405; J2543; J3411; J3475; J3480; J7040; J7042; J7050; Q9967; U0003

== ENCOUNTER 2022-03-17 10:24 | Inpatient (IN) | payer MEDICARE ==
--- NOTE | 2022-03-17 11:15 | Event Note ---
ED Screening Note Date of service: 03/17/22 Time: 11:13 ED Screening Note: This initial assessment/diagnostic orders/clinical plan/treatment(s) is/are subject to change based on patients health status, clinical progression and re- assessment by fellow clinical providers in the ED. Further treatment and workup at subsequent clinical providers discretion. Patient/guardian urged not to elope from the ED as their condition may be serious if not clinically assessed and managed. Patient presents with son who was in her usual state of health this morning (mild dementia and mobility issues). Son noticed at about 9:30am - change in mental status, slurring, facial droop. Initial orders include: My Active Orders 03/17/22 11:09 quality assurance monitor body CONT Continuous pulse oximetry ONCE 03/17/22 11:10 EKG (12 lead) Stat Complete Blood Count Auto Diff Stat Comprehensive Metabolic Panel Stat Creatine Kinase Stat Lactic Acid Stat Thyroid Stimulating Hormone Stat Troponin T Stat Urinalysis Complete Stat 03/17/22 11:11 XR chest 1V ap Urgent 03/17/22 11:12 Tech to do EKG .once
--- NOTE | 2022-03-17 11:38 | Emergency Department Report ---
ED Neuro Deficit HPI - General Chief Complaint: Altered Mental Status Stated Complaint: CHEST PAIN Source: family Mode of arrival: Wheelchair Limitations: Altered Mental Status - History of Present Illness Initial Comments: Patient is an 81-year-old female with history of pancreatitis who presents to the emergency department with lorenzo lamb for acute stroke. Patient was last known normal between and 0. At that time she was playing with a dog and talking to her son. She presents to the ER now with left-sided facial droop and trouble with speech. Her son states that she does not take any medicines and he does not know of any other medical problems besides the pancreatitis. Location: left face Presenting Symptoms: Present: Facial Droop/Numbness, Unable to Speak Clearly, Altered Mental Status - Related Data Home Medications: Previous Rx's Medication Instructions Recorded Last Taken Type Amlodipine Besylate [Norvasc] 10 mg PO DAILY 30 Days #30 tab 12/02/21 Unknown Rx Folic Acid [Folvite] 1 mg PO QDAY 7 Days #7 tab 12/02/21 Unknown Rx Potassium Chloride [K-Dur] 20 meq PO QDAY 7 Days #7 tab 12/02/21 Unknown Rx Thiamine [Vitamin B-1] 100 mg PO QDAY 7 Days #7 tablet 12/02/21 Unknown Rx Allergies/Adverse Reactions: Allergies Allergy/AdvReac Type Severity Reaction Status Date / Time No Known Allergies Allergy Verified 11/25/21 02:53 ED Review of Systems ROS: Stated complaint: CHEST PAIN Other details as noted in HPI Comment: Unobtainable due to pts medical conditions ED Past Medical Hx - Past Medical History Hx Hypertension: Yes Additional medical history: pancreatitis - Social History Smoking Status: Unknown if ever smoked - Medications Home Medications: Home Medications Medication Instructions Recorded Confirmed Last Taken Type Amlodipine Besylate [Norvasc] 10 mg PO DAILY 30 Days #30 tab 12/02/21 Unknown Rx Folic Acid [Folvite] 1 mg PO QDAY 7 Days #7 tab 12/02/21 Unknown Rx Potassium Chloride [K-Dur] 20 meq PO QDAY 7 Days #7 tab 12/02/21 Unknown Rx Thiamine [Vitamin B-1] 100 mg PO QDAY 7 Days #7 tablet 12/02/21 Unknown Rx ED Neuro Physical Exam - General Limitations: Altered Mental Status General appearance: alert Suspected Stroke: Yes - Head Head exam: Present: atraumatic, normocephalic - Eye Eye exam: Present: normal appearance, PERRL, EOMI - ENT ENT exam: Present: mucous membranes moist - Neck Neck exam: Present: normal inspection - Respiratory Respiratory exam: Present: normal lung sounds bilaterally. Absent: respiratory distress - Cardiovascular Cardiovascular Exam: Present: tachycardia. Absent: systolic murmur, diastolic murmur, rubs, gallop - GI/Abdominal GI/Abdominal exam: Present: soft. Absent: distended, tenderness - Rectal Rectal exam: Present: deferred - Extremities Exam Extremities exam: Present: normal inspection - Back Exam Back exam: Present: normal inspection - Neurological Exam Neurological exam: Present: alert, altered - NIHSS Assessment Interval: Baseline 1a. Level of Consciousness: alert/keenly responsive 1b. LOC Questions: aphasic 1c. LOC Commands: performs tasks correctly 2. Best Gaze: normal 3. Visual: no visual loss 4. Facial Palsy: partial paralysis 5b. Motor Arm Right: no drift 5a. Motor Arm Left: no drift 6a. Motor Leg Left: no gravity effort 6b. Motor Leg Right: no gravity effort 7. Limb Ataxia: absent 8. Sensory: normal 9. Best Language: mute/global aphasia 10. Dysarthria: severe dysarthria 11. Extinction/Inattention: no abnormality Total Score: 15 Stroke Severity: Moderate Stroke - Psychiatric Psychiatric exam: Present: other (Unable to assess) - Skin Skin exam: Present: warm, dry, intact, normal color. Absent: rash ED Course Vital Signs 03/17/22 03/17/22 03/17/22 11:12 12:03 13:24 Temperature 98.4 F Pulse Rate 107 H 87 91 H Respiratory 12 17 18 Rate Blood Pressure 122/78 106/68 [Left] O2 Sat by Pulse 94 99 98 Oximetry - Reevaluation(s) Reevaluation #1: 03/17/22 11:[address] head is negative for acute bleed. I discussed with patient's son IV tPA administration. At this time he states that he is patient's medical decision-maker. I discussed the risk and benefits. He declined tPA on the patient's behalf. 03/17/22 12:28 Patient's repeat NIH stroke score is noted to be a 6. Patient is improving. Reevaluation #2: 03/17/22 14:33 Unclear if patient had a seizure as her lactic acid is elevated to 11.2. I have ordered broad-spectrum antibiotics for patient and patient is still awaiting a urinalysis. I spoke to the hospitalist who has accepted patient for admission. They requested an EEG. I have placed an order. - Lab Data Result diagrams: 03/17/22 13:00 03/17/22 13:00 Lab Results 03/17/22 03/17/22 03/17/22 Range/Units 13:00 13:00 13:00 WBC 11.4 H (4.5-11.0) K/mm3 RBC 4.38 (3.65-5.03) M/mm3 Hgb 12.9 (10.1-14.3) gm/dl Hct 40.5 (30.3-42.9) % MCV 93 (79-97) fl MCH 29 (28-32) pg MCHC 32 (30-34) % RDW 16.3 H (13.2-15.2) % Plt Count 234 (140-440) K/mm3 Lymph % (Auto) 12.2 L (13.4-35.0) % Karnes % (Auto) 6.2 (0.0-7.3) % Eos % (Auto) 0.0 (0.0-4.3) % Baso % (Auto) 0.1 (0.0-1.8) % Lymph # (Auto) 1.4 (1.2-5.4) K/mm3 Karnes # (Auto) 0.7 (0.0-0.8) K/mm3 Eos # (Auto) 0.0 (0.0-0.4) K/mm3 Baso # (Auto) 0.0 (0.0-0.1) K/mm3 Seg Neutrophils % 81.5 H (40.0-70.0) % Seg Neutrophils # 9.3 H (1.8-7.7) K/mm3 Sodium 141 (137-145) mmol/L Potassium 3.4 L (3.6-5.0) mmol/L Chloride 91.7 L (98-107) mmol/L Carbon Dioxide 21 L (22-30) mmol/L Anion Gap 32 mmol/L BUN 18 H (7-17) mg/dL Creatinine 1.7 H (0.6-1.2) mg/dL Estimated GFR 35 ml/min BUN/Creatinine Ratio 11 % Glucose 150 H (65-100) mg/dL Lactic Acid 11.40 H* (0.7-2.0) mmol/L Calcium 11.2 H (8.4-10.2) mg/dL Total Bilirubin 0.70 (0.1-1.2) mg/dL AST 30 (5-40) units/L ALT 16 (7-56) units/L Alkaline Phosphatase 80 (35-129) units/L Total Creatine Kinase 618 H (30-135) units/L CK-MB (CK-2) (0.0-4.0) ng/mL CK-MB (CK-2) Rel Index (0-4) Troponin T < 0.010 (0.00-0.029) ng/mL Total Protein 6.3 (6.3-8.2) g/dL Albumin 3.2 L (3.9-5) g/dL Albumin/Globulin Ratio 1.0 % Lipase (13-60) units/L TSH (0.270-4.200) mlU/mL 03/17/22 03/17/22 03/17/22 Range/Units 13:00 13:00 13:00 WBC (4.5-11.0) K/mm3 RBC (3.65-5.03) M/mm3 Hgb (10.1-14.3) gm/dl Hct (30.3-42.9) % MCV (79-97) fl MCH (28-32) pg MCHC (30-34) % RDW (13.2-15.2) % Plt Count (140-440) K/mm3 Lymph % (Auto) (13.4-35.0) % Karnes % (Auto) (0.0-7.3) % Eos % (Auto) (0.0-4.3) % Baso % (Auto) (0.0-1.8) % Lymph # (Auto) (1.2-5.4) K/mm3 Karnes # (Auto) (0.0-0.8) K/mm3 Eos # (Auto) (0.0-0.4) K/mm3 Baso # (Auto) (0.0-0.1) K/mm3 Seg Neutrophils % (40.0-70.0) % Seg Neutrophils # (1.8-7.7) K/mm3 Sodium (137-145) mmol/L Potassium (3.6-5.0) mmol/L Chloride (98-107) mmol/L Carbon Dioxide (22-30) mmol/L Anion Gap mmol/L BUN (7-17) mg/dL Creatinine (0.6-1.2) mg/dL Estimated GFR ml/min BUN/Creatinine Ratio % Glucose (65-100) mg/dL Lactic Acid (0.7-2.0) mmol/L Calcium (8.4-10.2) mg/dL Total Bilirubin (0.1-1.2) mg/dL AST (5-40) units/L ALT (7-56) units/L Alkaline Phosphatase (35-129) units/L Total Creatine Kinase 667 H (30-135) units/L CK-MB (CK-2) 7.6 H (0.0-4.0) ng/mL CK-MB (CK-2) Rel Index 1.1 (0-4) Troponin T (0.00-0.029) ng/mL Total Protein (6.3-8.2) g/dL Albumin (3.9-5) g/dL Albumin/Globulin Ratio % Lipase 68 H (13-60) units/L TSH 5.170 H (0.270-4.200) mlU/mL - EKG Data -: EKG Interpreted by Me - Radiology Data Radiology results: report reviewed, image reviewed - Medical Decision Making Patient is an 81-year-old female with history of pancreatitis who presents the emergency department with concerns for acute stroke. Patient's initial stroke score is 15. Patient is within the window to receive tPA. Patient goes for CT head. Telemetry neurology was consulted. His initial blood sugar is 194. - Thrombolytic Inclusion/Exclusion Thrombolytic Inclusion Criteria: Ischemic Stroke Onset< 3h, NIH Stroke Scale Deficit, Negative CT Scan for ICH, Age 18 or Older, Glucose of 50-400mg/dl Thrombolytic Contraindications: Rapidily Improving s/s Critical care attestation.: If time is entered above; I have spent that time in minutes in the direct care of this critically ill patient, excluding procedure time. ED Disposition Clinical Impression: Stroke, Elevated lactic acid level Disposition: HOME / SELF CARE / HOMELESS Is pt being admited?: Yes Does the pt Need Aspirin: Yes Condition: Stable
--- NOTE | 2022-03-17 11:49 | Cat Scan Report ---
CT head/brain wo con INDICATION / CLINICAL INFORMATION: 81 years Female; altered mental status - CVa - CP. Facial droop. Stroke. TECHNIQUE: Routine CT head without contrast. All CT scans at this location are performed using CT dos e reduction for ALARA by means of automated exposure control. COMPARISON: 11/27/2021 FINDINGS: BRAIN / INTRACRANIAL CONTENTS: No acute hemorrhage, mass effect, midline shift, hydrocephalus, or acu te, large territorial infarct. Mild cerebral and cerebellar atrophy. There are mild areas of decreased attenuation in the white matter of the cerebral hemispheres. These are nonspecific findings and may be related to microangiopathy (hypertension, diabetes, atheroscleros is), given the patient's age. It might be difficult to evaluate for small areas of ischemia without d iffusion imaging by MRI. CRANIOCERVICAL JUNCTION: No significant abnormality. ORBITS: No significant abnormality of visualized orbits. SINUSES / MASTOIDS: Visualized paranasal sinuses and mastoid air cells are essentially clear. ADDITIONAL FINDINGS: Atherosclerotic disease is seen in the anterior and posterior circulation. IMPRESSION: 1. Mild age-appropriate volume loss and chronic white matter changes. No evidence for acute parenchym al infarct or hemorrhage. No significant change since 11/27/2021. CODE STROKE: Time of Communication ([place]/CDT): 1043 hours Licensed Practitioner Receiving Report: Dr. Denis Signer Name: Sterling Butcher Jr, MD Signed: 03/17/2022 11:44 AM Workstation Name: [id number]
--- NOTE | 2022-03-17 12:17 | Cat Scan Report ---
CT ANGIO NECK INDICATION / CLINICAL INFORMATION: 81 years Female; stroke sx; L sided facial droop; aphasia. TECHNIQUE: Thin cut axial images obtained through the head during IV bolus contrast administration. S agittal, coronal, and 3 plane MIP reconstructions performed by the technologist. NASCET type criteria used evaluate stenoses. All CT scans at this location are performed using CT dose reduction for ALAR A by means of automated exposure control. COMPARISON: CT head performed the same day FINDINGS: ARCH: Normal aortic arch branching suggested. CAROTID ARTERIES: The visualized common and internal carotid arteries are widely patent. VERTEBRAL ARTERIES: Left vertebral system seen. No significant stenosis appreciated. ADDITIONAL FINDINGS: Remainder of the surrounding soft tissues are grossly normal. IMPRESSION: No significant stenosis appreciated on this CTA of the neck. Signer Name: Sterling Butcher Jr, MD Signed: 03/17/2022 12:13 PM Workstation Name: [id number]
--- NOTE | 2022-03-17 12:26 | Cat Scan Report ---
CT ANGIO HEAD INDICATION / CLINICAL INFORMATION: 81 years Female; stroke sx; L sided facial droop; aphasia. TECHNIQUE: Thin cut axial images obtained through the head during IV bolus contrast administration. S agittal, coronal, and 3 plane MIP reconstructions performed by the technologist. NASCET type criteria used evaluate stenoses. Automated exposure control utilized for radiation reduction purposes. 50 cc of Omnipaque 350 was administered intravenously. COMPARISON: CT head performed the same day. FINDINGS: INTERNAL CAROTID ARTERIES: Moderate irregular partially calcified plaques are identified in the supra clinoid ICAs bilaterally. There is approximately 50% stenosis in the right supraclinoid ICA. No signi ficant stenosis in the left ICA. VERTEBROBASILAR SYSTEM: No significant narrowing appreciated. DISTAL BRANCHES: Distal branches of the anterior, middle, and posterior cerebral arteries are fairly symmetric in appearance and number. ANEURYSM: None identified. ADDITIONAL FINDINGS: There is origin of the left PRODUCTION MANAGER. A large right posterior communicating art vidhi is identified. IMPRESSION: No significant abnormality on this CTA of the head. No large vessel occlusion or high-grade stenosis. Signer Name: Sterling Butcher Jr, MD Signed: 03/17/2022 12:22 PM Workstation Name: [id number]
--- NOTE | 2022-03-17 13:15 | XRay Report ---
CHEST 1 VIEW 03/17/2022 12:06 PM INDICATION / CLINICAL INFORMATION: Altered Mental Status. COMPARISON: 11/25/2021 FINDINGS: SUPPORT DEVICES: None. HEART / MEDIASTINUM: No significant abnormality. LUNGS / PLEURA: No significant pulmonary or pleural abnormality. No pneumothorax. ADDITIONAL FINDINGS: No significant additional findings. IMPRESSION: 1. No acute findings. Signer Name: Sterling Butcher Jr, MD Signed: 03/17/2022 1:10 PM Workstation Name: [id number]
[2022-03-17 13:35] LABS: Alanine Aminotransferase 16 units/L (7-56); Albumin 3.2 g/dL (3.9-5); BUN/Creatinine Ratio 11; Blood Urea Nitrogen 18 mg/dL (7-17); Calcium 11.2 mg/dL (8.4-10.2); Hemolysis Index 52
[2022-03-17 13:56] LABS: Creatine Kinase MB 7.6 ng/mL (0.0-4.0)
[2022-03-17 14:02] LABS: Basophils % (Auto) 0.1 % (0.0-1.8); Hematocrit 40.5 % (30.3-42.9); Hemoglobin 12.9 gm/dl (10.1-14.3); Lymphocytes # (Auto) 1.4 K/mm3 (1.2-5.4); Lymphocytes % (Auto) 12.2 % (13.4-35.0); Mean Corpuscular HGB Conc 32 % (30-34); Mean Corpuscular Volume 93 fl (79-97); Monocytes # (Auto) 0.7 K/mm3 (0.0-0.8); Monocytes % (Auto) 6.2 % (0.0-7.3); Platelet Count 234 K/mm3 (140-440); Red Blood Count 4.38 M/mm3 (3.65-5.03); Red Cell Distribution Width 16.3 % (13.2-15.2)
[2022-03-17] MEDS ORDERED: PIPERACIL/TAZOBACTA 4.5/NS 100 4.5 GM/100 ML VIAL IV ONE (14:28)
[2022-03-17] MEDS ORDERED: ASPIRIN 81 MG TAB CHEW PO ONE (14:35)
[2022-03-17] MEDS ORDERED: SODIUM CHLORIDE 0.9% 1000 ML 1,000 ML IV ONE (15:00)
[2022-03-17 15:57] LABS: Bacteria,Urine 4+ /HPF (Negative); Bilirubin,Urine NEG (Negative); Blood,Urine MOD (Negative); Color,Urine Amber (Yellow); Mucus,Urine FEW /HPF
--- NOTE | 2022-03-17 16:05 | Emergency Department Report ---
Blank Doc - Documentation Documentation: [facility] Consult Note # Demographics Consult Type: Acute Stroke Level 1 (0-4.5 hrs) Patient Location: Emergency Room First Name: SHELIA Last Name: GABBY Vasquez Date of : 1940 Age: 81 Gender: Female Facility: [facility] Time of Initial Page (Eastern Time): 03/17/2022, 11:28 Time of Return Call (Eastern Time): 03/17/2022, 11:28 # HPI History: 81 year old female with hx of pancreatitis presents with left sided f acial droop, not speaking, not moving either of the legs. As per son, patient has been not eating much and complaining of stomach pain for several days. She has slowed down and not acting like herself. Denies any acute changes. Last Known Normal: ongoing for several days # Scores Level of Consciousness 1a: [1] = Not alert; but arousable by minor stim LOC Questions 1b: [0] = Answers both questions correctly LOC Commands 1c: [0] = Performs both tasks correctly Best Gaze 2: [0] = Normal Visual 3: [0] = No visual loss Facial Palsy 4: [0] = Normal symmetrical movements Motor Arm Left 5a: [0] = No drift Motor Arm Right 5b: [0] = No drift Motor Leg Left 6a: [0] = No drift Motor Leg Right 6b: [0] = No drift Limb Ataxia 7: [0] = Absent Sensory 8: [0] = Normal Best Language 9: [0] = No aphasia Dysarthria 10: [1] = Epnf-bw-jufcyxhl dysarthria Extinction and Inattention 11: [0] = No abnormality NIHSS Total: 2 # PMH-FH-SH Past Medical History: Pancreatitis Social History: lives independently Medications: denies # Data Head CT: no bleed per radiologist read # Assessment Impression: No obvious focal findings. Given history of ongoing symptoms for several days, likely metabolic/infectious etiology. patient not tpa candidate based on history and examination. # Plan Target Blood Pressure: SBP < 160 SBP > 110 Labs: Ammonia CBC comprehensive metabolic panel ESR hemoglobin A1c liver function tests lipid panel thiamine troponin TSH urine drug screen ua Imaging: (urgency: STAT): CT Head without contrast CT Angiogram Head and CT Angiogram Neck Imaging: (urgency: routine): MRI Brain without contrast Therapy/Evaluation: PT/OT evaluation speech/swallow consultation Other: If patient has any neurological deterioration please call me back immediately telemetry monitoring would not pursue stroke work-up if MRI is negative I have discussed my recommendations with the referring provider # Demographics First Name: SHELIA Last Name: GABBY Vasquez Facility: [facility]
[2022-03-17 16:07] LABS: RBC,Urine > 182.0 /HPF (0.0-6.0); WBC,Urine < 1.0 /HPF (0.0-6.0)
[2022-03-17] MEDS ORDERED: oxyCODONE /ACETAMINOPHEN 5-325MG TAB PO PRN (17:18)
[2022-03-17] MEDS ORDERED: MAGNESIUM HYDROXIDE (MOM) ORAL LIQD UDC PO PRN (17:18)
[2022-03-17] MEDS ORDERED: HYDROmorphone 0.5 MG/0.5 ML INJ IV PRN (17:18)
[2022-03-17] MEDS ORDERED: PROMETHAZINE 25 MG RECT SUPP PR PRN (17:18)
[2022-03-17] MEDS ORDERED: ONDANSETRON 4 MG/2 ML INJ IV PRN (17:18)
[2022-03-17] MEDS ORDERED: ACETAMINOPHEN 325 MG TAB PO PRN (17:18)
[2022-03-17] MEDS ORDERED: METOCLOPRAMIDE 10 MG TAB PO PRN (17:18)
--- NOTE | 2022-03-17 17:18 | History and Physical Report ---
History of Present Illness Chief complaint: She is weak and she cannot talk History of present illness: 81 YO Female with Vascular Dementia, Cerebral Atherosclerosis, HTN presents to ED for evaluation. Patient lethargic with diminished cognition at time of evaluation is unable to write history. Patient history provided ED staff, as well as patient's son who is at bedside during exam and interview. As per son the patient was in her usual state of health at bedtime approximately 2100 hrs. Patient awoke from sleep today and was found to have left-sided facial drooping and slurred speech. Patient transported to [facility] via private vehicle for further care and evaluation of the aforementioned symptoms. The patient was seen and evaluated emergency department. All lab and imaging studies reviewed. A code stroke was called upon arrival. The patient was found to have a new focal neurologic deficit. Patient initiated on CVA protocol. Patient found to be within the therapeutic window for tPA however patient family declined tPA therapy. Teleneurology consulted. Patient family denies reports of fever, chi lls, chest pain palpitation, productive cough, skin rash, recent contact, known exposure to COVID-19. Patient has diminished cognition at time of evaluation but has a positive gag reflex and is able to protect her airway without difficulty. Prior mission on 11/25/2021 reviewed. All medication listed at time of admission as reconciled. Advanced care planning conducted in ED. Past History Past Medical History: hypertension Past Surgical History: No surgical history, Other (Reviewed) Social history: single, lives with family Family history: hypertension Medications and Allergies Allergies Allergy/AdvReac Type Severity Reaction Status Date / Time No Known Allergies Allergy Verified 11/25/21 02:53 Home Medications Medication Instructions Recorded Confirmed Last Taken Type Amlodipine Besylate [Norvasc] 10 mg PO DAILY 30 Days #30 tab 12/02/21 Unknown Rx Folic Acid [Folvite] 1 mg PO QDAY 7 Days #7 tab 12/02/21 Unknown Rx Potassium Chloride [K-Dur] 20 meq PO QDAY 7 Days #7 tab 12/02/21 Unknown Rx Thiamine [Vitamin B-1] 100 mg PO QDAY 7 Days #7 tablet 12/02/21 Unknown Rx Review of Systems ROS unobtainable: due to mental status Exam - Constitutional Vitals: Temp Pulse Resp BP Pulse Ox 98.4 F 91 H 18 106/68 98 03/17/22 13:24 03/17/22 13:24 03/17/22 13:24 03/17/22 13:24 03/17/22 13:24 General appearance: Present: mild distress - EENT Eyes: Present: PERRL ENT: hearing decreased - Neck Neck: Present: supple, normal ROM - Respiratory Respiratory effort: normal Respiratory: bilateral: diminished - Cardiovascular Heart Sounds: Present: S1 & S2. Absent: rub, click - Extremities Extremities: pulses symmetrical, No edema Peripheral Pulses: within normal limits - Abdominal General gastrointestinal: Present: soft, non-tender, non-distended, normal bowel sounds Female genitourinary: Present: normal - Integumentary Integumentary: Present: clear, dry - Musculoskeletal Musculoskeletal: left sided weakness - Psychiatric Psychiatric: no appropriate mood/affect, no intact judgment & insight, no memory intact - Neurologic Neurologic: CNII-XII intact, focal deficits, no moves all extremities, no gait normal HEART Score - HEART Score Troponin: Troponin T < 0.010 ng/mL (0.00-0.029) 03/17/22 13:00 Results - Labs CBC & Chem 7: 03/17/22 13:00 03/17/22 13:00 Labs: Abnormal lab results 03/17/22 03/17/22 03/17/22 Range/Units 13:00 13:00 13:00 WBC 11.4 H (4.5-11.0) K/mm3 RDW 16.3 H (13.2-15.2) % Lymph % (Auto) 12.2 L (13.4-35.0) % Seg Neutrophils % 81.5 H (40.0-70.0) % Seg Neutrophils # 9.3 H (1.8-7.7) K/mm3 Potassium 3.4 L (3.6-5.0) mmol/L Chloride 91.7 L (98-107) mmol/L Carbon Dioxide 21 L (22-30) mmol/L BUN 18 H (7-17) mg/dL Creatinine 1.7 H (0.6-1.2) mg/dL Glucose 150 H (65-100) mg/dL Lactic Acid 11.40 H* (0.7-2.0) mmol/L Calcium 11.2 H (8.4-10.2) mg/dL Total Creatine Kinase 618 H (30-135) units/L CK-MB (CK-2) (0.0-4.0) ng/mL Albumin 3.2 L (3.9-5) g/dL Lipase (13-60) units/L TSH (0.270-4.200) mlU/mL Ur Specific [place] (1.003-1.030) 03/17/22 03/17/22 03/17/22 Range/Units 13:00 13:00 13:00 WBC (4.5-11.0) K/mm3 RDW (13.2-15.2) % Lymph % (Auto) (13.4-35.0) % Seg Neutrophils % (40.0-70.0) % Seg Neutrophils # (1.8-7.7) K/mm3 Potassium (3.6-5.0) mmol/L Chloride (98-107) mmol/L Carbon Dioxide (22-30) mmol/L BUN (7-17) mg/dL Creatinine (0.6-1.2) mg/dL Glucose (65-100) mg/dL Lactic Acid (0.7-2.0) mmol/L Calcium (8.4-10.2) mg/dL Total Creatine Kinase 667 H (30-135) units/L CK-MB (CK-2) 7.6 H (0.0-4.0) ng/mL Albumin (3.9-5) g/dL Lipase 68 H (13-60) units/L TSH 5.170 H (0.270-4.200) mlU/mL Ur Specific [place] (1.003-1.030) 03/17/22 03/17/22 Range/Units 15:07 Unknown WBC (4.5-11.0) K/mm3 RDW (13.2-15.2) % Lymph % (Auto) (13.4-35.0) % Seg Neutrophils % (40.0-70.0) % Seg Neutrophils # (1.8-7.7) K/mm3 Potassium (3.6-5.0) mmol/L Chloride (98-107) mmol/L Carbon Dioxide (22-30) mmol/L BUN (7-17) mg/dL Creatinine (0.6-1.2) mg/dL Glucose (65-100) mg/dL Lactic Acid 4.60 H* (0.7-2.0) mmol/L Calcium (8.4-10.2) mg/dL Total Creatine Kinase (30-135) units/L CK-MB (CK-2) (0.0-4.0) ng/mL Albumin (3.9-5) g/dL Lipase (13-60) units/L TSH (0.270-4.200) mlU/mL Ur Specific [place] > 1.030 H (1.003-1.030) Assessment and Plan - Patient Problems (1) CVA (cerebral vascular accident) Current Visit: Yes Status: Acute Plan to address problem: CVA protocol: CTA, neuro check, seizure precautions, antiplatelet therapy, physical therapy consulted, Occupational Therapy consulted, speech therapy consulted, carotid Doppler, echocardiogram. Patient family declined tPA therapy. Teleneurology consulted. Risk factor reduction. (2) Vascular dementia Current Visit: Yes Status: Acute Qualifiers: Dementia behavioral disturbance: without behavioral disturbance Qualified Code(s): F01.50 - Vascular dementia without behavioral disturbance Plan to address problem: Verbal prompting, verbal redirection, benzodiazepine therapy as clinically indicated. (3) Cerebral atherosclerosis Current Visit: Yes Status: Acute Plan to address problem: Risk factor reduction, antiplatelet therapy, supportive care. (4) Dysarthria due to acute stroke Current Visit: Yes Status: Acute Plan to address problem: Speech therapy consulted, supportive care. (5) Dysphagia Current Visit: Yes Status: Acute Qualifiers: Dysphagia type: oropharyngeal phase Qualified Code(s): R13.12 - Dysphagia, oropharyngeal phase Plan to address problem: Speech therapy consulted, bedside swallow evaluation completed. (6) DVT prophylaxis Current Visit: Yes Status: Acute Plan to address problem: SCD to bilateral lower extremities while in bed (7) Advance care planning Current Visit: Yes Status: Acute Plan to address problem: Disease education done, care plan discussed, diagnosis discussed, prognosis discussed, patient family acknowledges understanding and agreement with care plan, +30 minutes. (8) Preventative health care Current Visit: Yes Status: Acute Plan to address problem: Patient family counseled regarding home safety, risk factor reduction, outpatient follow-up with primary care physician for all age and risk factor appropriate screening test. +30 minutes.
[2022-03-17 17:27] LABS: INR 0.88 (0.87-1.13); Partial Thromboplastin Time 29.2 Sec. (24.2-36.6)
[2022-03-17 17:28] LABS: Thrombin Time 20.9 Sec. (15.1-19.6)
--- NOTE | 2022-03-18 08:19 | Progress Note ---
Assessment and Plan Assessment and plan: #CVA (cerebral vascular accident) #Dysarthria #Dysphagia CVA protocol: CTA, neuro check, seizure precautions, antiplatelet therapy, physical therapy consulted, Occupational Therapy consulted, speech therapy consulted, carotid Doppler, echocardiogram. Patient family declined tPA the rapy. Teleneurology consulted. Risk factor reduction. MRI pending #Vascular dementia Verbal prompting, verbal redirection, benzodiazepine therapy as clinically indicated. #Hypokalemia -We will replete and monitor #Lactic acidosis-resolved #Advanced care planning Disease education done, care plan discussed, diagnosis discussed, prognosis discussed, patient acknowledges understanding and agreement with care plan, +30 minutes. History Interval history: No acute events overnight. Patient AAOx3. She has no recollection of events that brought her to the hospital. She was updated about care plan and is agreeable. She denies previous history of stroke and lives alone able to ambulate with a rolling walker. Hospitalist Physical - Physical exam Narrative exam: GENERAL: Well-developed well-nourished. In no acute distress. HEENT: Edentulous. NECK: Supple. CHEST/LUNGS: CTAB on room air HEART/CARDIOVASCULAR: RRR. No murmur, rubs or gallops appreciated. ABDOMEN: +BS. NT/ND. SKIN: No rashes noted. NEURO: No focal motor deficit. Follows all commands. MUSCULOSKELETAL: No joint effusion EXTREMITIES: No cyanosis, clubbing or edema. PSYCH: Cooperative. - Constitutional Vitals: Temp Pulse Resp BP Pulse Ox 98.2 F 76 18 137/78 97 03/18/22 05:04 03/18/22 05:04 03/18/22 05:04 03/18/22 05:04 03/18/22 06:10 General appearance: Present: mild distress HEART Score - HEART Score Troponin: Troponin T < 0.010 ng/mL (0.00-0.029) 03/17/22 13:00 Results - Labs CBC & Chem 7: 03/17/22 13:00 03/17/22 13:00 Labs: Laboratory Last Values WBC 11.4 K/mm3 (4.5-11.0) H 03/17/22 13:00 RBC 4.38 M/mm3 (3.65-5.03) 03/17/22 13:00 Hgb 12.9 gm/dl (10.1-14.3) 03/17/22 13:00 Hct 40.5 % (30.3-42.9) 03/17/22 13:00 MCV 93 fl (79-97) 03/17/22 13:00 MCH 29 pg (28-32) 03/17/22 13:00 MCHC 32 % (30-34) 03/17/22 13:00 RDW 16.3 % (13.2-15.2) H 03/17/22 13:00 Plt Count 234 K/mm3 (140-440) 03/17/22 13:00 Lymph % (Auto) 12.2 % (13.4-35.0) L 03/17/22 13:00 Geary % (Auto) 6.2 % (0.0-7.3) 03/17/22 13:00 Eos % (Auto) 0.0 % (0.0-4.3) 03/17/22 13:00 Baso % (Auto) 0.1 % (0.0-1.8) 03/17/22 13:00 Lymph # (Auto) 1.4 K/mm3 (1.2-5.4) 03/17/22 13:00 Geary # (Auto) 0.7 K/mm3 (0.0-0.8) 03/17/22 13:00 Eos # (Auto) 0.0 K/mm3 (0.0-0.4) 03/17/22 13:00 Baso # (Auto) 0.0 K/mm3 (0.0-0.1) 03/17/22 13:00 Seg Neutrophils % 81.5 % (40.0-70.0) H 03/17/22 13:00 Seg Neutrophils # 9.3 K/mm3 (1.8-7.7) H 03/17/22 13:00 PT 13.2 Sec. (12.2-14.9) 03/17/22 13:35 INR 0.88 (0.87-1.13) 03/17/22 13:35 APTT 29.2 Sec. (24.2-36.6) 03/17/22 13:35 Thrombin Time 20.9 Sec. (15.1-19.6) H 03/17/22 13:35 Sodium 141 mmol/L (137-145) 03/17/22 13:00 Potassium 3.4 mmol/L (3.6-5.0) L 03/17/22 13:00 Chloride 91.7 mmol/L (98-107) L 03/17/22 13:00 Carbon Dioxide 21 mmol/L (22-30) L 03/17/22 13:00 Anion Gap 32 mmol/L 03/17/22 13:00 BUN 18 mg/dL (7-17) H 03/17/22 13:00 Creatinine 1.7 mg/dL (0.6-1.2) H 03/17/22 13:00 Estimated GFR 35 ml/min 03/17/22 13:00 BUN/Creatinine Ratio 11 % 03/17/22 13:00 Glucose 150 mg/dL (65-100) H 03/17/22 13:00 POC Glucose 90 mg/dL (70-105) 03/18/22 00:59 Lactic Acid 1.90 mmol/L (0.7-2.0) 03/17/22 22:52 Calcium 11.2 mg/dL (8.4-10.2) H 03/17/22 13:00 Total Bilirubin 0.70 mg/dL (0.1-1.2) 03/17/22 13:00 AST 30 units/L (5-40) 03/17/22 13:00 ALT 16 units/L (7-56) 03/17/22 13:00 Alkaline Phosphatase 80 units/L (35-129) 03/17/22 13:00 Total Creatine Kinase 618 units/L (30-135) H 03/17/22 13:00 Total Creatine Kinase 667 units/L (30-135) H 03/17/22 13:00 CK-MB (CK-2) 7.6 ng/mL (0.0-4.0) H 03/17/22 13:00 CK-MB (CK-2) Rel Index 1.1 (0-4) 03/17/22 13:00 Troponin T < 0.010 ng/mL (0.00-0.029) 03/17/22 13:00 Total Protein 6.3 g/dL (6.3-8.2) 03/17/22 13:00 Albumin 3.2 g/dL (3.9-5) L 03/17/22 13:00 Albumin/Globulin Ratio 1.0 % 03/17/22 13:00 Lipase 68 units/L (13-60) H 03/17/22 13:00 TSH 5.170 mlU/mL (0.270-4.200) H 03/17/22 13:00 Urine Color Judy (Yellow) 03/17/22 Unknown Urine Turbidity Cloudy (Clear) 03/17/22 Unknown Urine pH 5.0 (5.0-7.0) 03/17/22 Unknown Ur Specific [place] > 1.030 (1.003-1.030) H 03/17/22 Unknown Urine Protein 100 mg/dl mg/dL (Negative) 03/17/22 Unknown Urine Glucose (UA) 50 mg/dL (Negative) 03/17/22 Unknown Urine Ketones Tr mg/dL (Negative) 03/17/22 Unknown Urine Blood Mod (Negative) 03/17/22 Unknown Urine Nitrite Neg (Negative) 03/17/22 Unknown Urine Bilirubin Neg (Negative) 03/17/22 Unknown Urine Urobilinogen 4.0 mg/dL (<2.0) 03/17/22 Unknown Ur Leukocyte Esterase Neg (Negative) 03/17/22 Unknown Urine WBC (Auto) < 1.0 /HPF (0.0-6.0) 03/17/22 Unknown Urine RBC (Auto) > 182.0 /HPF (0.0-6.0) 03/17/22 Unknown U Epithel Cells (Auto) 1.0 /HPF (0-13.0) 03/17/22 Unknown Urine Bacteria (Auto) 4+ /HPF (Negative) 03/17/22 Unknown Urine Mucus Few /HPF 03/17/22 Unknown Urine Yeast (Budding) 3+ /HPF 03/17/22 Unknown Microbiology: Microbiology 03/17/22 15:07 Peripheral/Venous Blood Culture - Preliminary Culture in Progress 03/17/22 15:29 Peripheral/Venous Blood Culture - Preliminary Culture in Progress Bean/IV: Voiding Method Incontinent Active Medications - Current Medications Current Medications: Generic Name Dose Route Start Last Admin Trade Name Freq PRN Reason Stop Dose Admin Acetaminophen 650 mg 03/17/22 17:18 Acetaminophen 325 Mg Tab PO Q4H PRN Pain, Mild (1-3) Aspirin 325 mg 03/18/22 10:00 Aspirin 325 Mg Tab PO QDAY ELIESER Atorvastatin Calcium 40 mg 03/17/22 22:00 03/18/22 01:41 Atorvastatin 40 Mg Tab PO 40 mg QHS ELIESER Administration Bisacodyl 10 mg 03/17/22 17:18 Bisacodyl 10 Mg Rect Supp MO QDAY PRN Constipation Hydromorphone HCl 0.5 mg 03/17/22 17:18 Hydromorphone 0.5 Mg/0.5 Ml Inj IV Q13H PRN Pain , Severe (7-10) Magnesium Hydroxide 30 ml 03/17/22 17:18 Magnesium Hydroxide (Mom) Oral Liqd Udc PO Q4H PRN Constipation Metoclopramide HCl 10 mg 03/17/22 17:18 Metoclopramide 10 Mg Tab PO Q6H PRN Nausea And Vomiting Ondansetron HCl 4 mg 03/17/22 17:18 Ondansetron 4 Mg/2 Ml Inj IV Q8H PRN Nausea And Vomiting Oxycodone/Acetaminophen 1 tab 03/17/22 17:18 Oxycodone /Acetaminophen 5-325mg Tab PO Q6H PRN Pain, Moderate (4-6) Promethazine HCl 25 mg 03/17/22 17:18 Promethazine 25 Mg Rect Supp MO Q6H PRN Nausea And Vomiting Sodium Chloride 10 ml 03/17/22 17:18 Sodium Chloride 0.9% 10 Ml Flush Syringe IV 03/27/22 23:59 PRN PRN LINE FLUSH
[2022-03-18] MEDS: ASPIRIN 325 MG TAB PO SCH ×2 (09:08→17:51)
--- NOTE | 2022-03-18 13:30 | Electrocardiograph Report ---
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
--- NOTE | 2022-03-18 16:45 | Vascular Lab Report ---
DUPLEX DOPPLER ULTRASOUND CAROTID, BILATERAL INDICATION / CLINICAL INFORMATION: stroke. COMPARISON: CTA neck 03/17/2022. FINDINGS: RIGHT CAROTID: No significant atherosclerotic plaque. - PLAQUE ESTIMATE (%): None. - CCA velocity: 77 cm/sec. - ICA peak systolic velocity: 37 cm/sec. - ICA/CCA PSV Ratio: Less than 2. Right Vertebral Artery: Antegrade flow. LEFT CAROTID: Minimal atherosclerotic plaque. - PLAQUE ESTIMATE (%): < 50% - CCA velocity: 49 cm/sec. - ICA peak systolic velocity: 60 cm/sec. - ICA/CCA PSV Ratio: Less than 2. Left Vertebral Artery: Antegrade flow. IMPRESSION: 1. Right Internal Carotid Artery: Normal. No stenosis. 2. Left Internal Carotid Artery: Less than 50% diameter stenosis. Velocity criteria are extrapolated from diameter data as defined by the Society of Radiologists in Ul trasound Consensus Conference, Radiology 2003; 229;340-346. NO STENOSIS (NORMAL) - Plaque = none; ICA PSV < 125 cm/sec; ICA/CCA PSV Ratio < 2.0 <50% STENOSIS - Plaque < 50%; ICA PSV < 125 cm/sec; ICA/CCA PSV Ratio < 2.0 50-69% STENOSIS - Plaque > 50%; ICA PSV = 125-230 cm/sec; ICA/CCA PSV Ratio = 2.0-4.0 >70% BUT <100% STENOSIS - Plaque > 50%; ICA PSV > 230 cm/sec; ICA/CCA PSV Ratio > 4.0 NEAR OCCLUSION - Plaque = visible lumen; ICA PSV = high/low/none; ICA/CCA PSV Ratio = variable TOTAL OCCLUSION - Plaque = no lumen; ICA PSV = none; ICA/CCA PSV Ratio = N/A Scribed by: Rhiannon Almonte RDMS, RVT, RMSKS Scribed: 03/18/2022 2:36 PM I have reviewed the images, agree with this report, and edited this report as needed. Signer Name: Reynaldo Walter MD Signed: 03/18/2022 4:41 PM Workstation Name: [id number]
--- NOTE | 2022-03-18 18:32 | Magnetic Resonance Report ---
MRI BRAIN WITHOUT CONTRAST INDICATION / CLINICAL INFORMATION: stroke r/o. TECHNIQUE: Multiplanar, multisequence MR images of the brain were obtained. COMPARISON: Head CT on 03/17/2022 and brain MRI on 12/01/2021 FINDINGS: BRAIN / INTRACRANIAL CONTENTS: No acute ischemia, acute hemorrhage, mass effect, midline shift, or hy drocephalus. Stable chronic small vessel ischemic change in the cerebral white matter and associated central greater than peripheral volume loss. Hemosiderin staining in the left temporal lobe from rem ote hemorrhage is unchanged. CRANIOCERVICAL JUNCTION: No significant abnormality. VASCULAR FLOW-VOIDS: No significant abnormality. ORBITS: No significant abnormality of visualized orbits. SINUSES / MASTOIDS: No significant abnormality of visualized sinuses and mastoid air cells. ADDITIONAL FINDINGS: None. IMPRESSION: 1. No acute intracranial abnormality. No adverse change from previous exams. Signer Name: Joseph James MD Signed: 03/18/2022 6:27 PM Workstation Name: [id number]
[2022-03-18 21:12] VITALS: BP 124/46
[2022-03-18 21:19] LABS: Chol/HDL Ratio 4.72 %
== END 2022-03-18 23:06 | disposition still patient (30) | DRG 69 ==
LOC: ED 10:24 → 3A 17:18
PROVIDERS: ADMIT Internal Medicine; ATTEND Student in an Organized Health Care Education/Training Program
DX: G45.9 Transient cerebral ischemic attack, unspecified (principal); R13.10 Dysphagia, unspecified; F03.90 Unspecified dementia, unspecified severity, without behavioral disturbance, psychotic disturbance, mood disturbance, and anxiety; I70.90 Unspecified atherosclerosis; I69.322 Dysarthria following cerebral infarction; E87.6 Hypokalemia
CPT/HCPCS: 36415; 70450; 70496; 70498; 70551; 71045; 80053; 80061; 81001; 82140; 82550; 82553; 82962; 83036; 83690; 84439; 84443; 84484; 85025; 85610; 85670; 85730; 87040; 93005; 93880; 95819; 96365; 99285; G0378; J2543; Q9967